=== PATIENT | female | born 1955 | race African-American/Black ===

== ENCOUNTER 2017-07-30 21:39 | Inpatient (IN) | payer OTHER ==
[2017-07-30 21:50] VITALS: BMI 36.6
--- NOTE | 2017-07-30 23:48 | PDOC ---
History of Present Illness <Miriam Reynoso - Last Filed: 07/31/17 05:22> - History of Present Illness Initial Comments: Ms. Najera is a 62yo F with a PMHx of HTN, DM2 who presents with R sided abdominal pain. Pain is characterized as a pressure, started suddenly today at 5pm. Pain is worse w/ movement. She has had 3 episode of NBNB emesis since the pain started. Also associated fevers, chills. She doesn't remember if she ate anything odd. Endorses no chest pain, GERD. No dysuria, hematuria. But endorses increased urinary frequency and dry mouth since the episode started. No diarrhea , no constipation, no blood in stool. PMD - Dr. Daly SocHx - Denies smoking, alcohol, drugs SgHx - Hysterectomy Allergies - Penicillin <Noel Everett - Last Filed: 07/31/17 05:57> - General Chief Complaint: Pain Stated Complaint: right sided abdominal pain Time Seen by Provider: 07/30/17 22:32 Past History <Miriam Reynoso - Last Filed: 07/31/17 05:22> - Past Medical History Anemia: No Asthma: No Cancer: No Cardiac Disorders: No CVA: No COPD: No CHF: No Dementia: No Diabetes: No GI Disorders: Yes (DIVERTICULOSIS) Disorders: No HTN: Yes Hypercholesterolemia: No Liver Disease: No Seizures: No Thyroid Disease: No - Surgical History Abdominal Surgery: No Appendectomy: No Cardiac Surgery: No Cholecystectomy: No Lung Surgery: No Neurologic Surgery: No Orthopedic Surgery: No - Suicide/Smoking/Psychosocial Hx Smoking History: Never smoked Have you smoked in the past 12 months: No If you are a former smoker, when did you quit?: 35 YEARS AGO Information on smoking cessation initiated: No Hx Alcohol Use: No Drug/Substance Use Hx: No Substance Use Type: None Hx Substance Use Treatment: No <Noel Everett - Last Filed: 07/31/17 05:57> - Past Medical History Allergies/Adverse Reactions: Allergies Allergy/AdvReac Type Severity Reaction Status Date / Time Penicillins Allergy Verified 07/30/17 21:50 Home Medications: Ambulatory Orders Aspirin 81 mg PO DAILY 11/08/13 Triamterene/Hydrochlorothiazid [Maxzide 37.5 mg-25 mg Tablet] 1 each PO HS 11/08 Amlodipine Besylate 5 mg PO DAILY 07/30/17 *Physical Exam - Vital Signs Last Vital Signs Temp Pulse Resp BP Pulse Ox 100.6 F H 97 H 16 162/65 100 07/30/17 21:48 07/30/17 21:48 07/30/17 21:48 07/30/17 21:48 07/30/17 21:48 <Miriam Reynoso - Last Filed: 07/31/17 05:22> - Vital Signs Last Vital Signs Temp Pulse Resp BP Pulse Ox 100.6 F H 97 H 16 162/65 100 07/30/17 21:48 07/30/17 21:48 07/30/17 21:48 07/30/17 21:48 07/30/17 21:48 - Physical Exam Comments: GEN: AAOx3, NAD, Lying comfortably not in distress HEENT: PERRLA, EOMi CV: S1, S2, RRR LUNG: CTABL ABD: Soft, TTP in RLQ and R middle MSK: No edema, no erythema NEURO: CN 2-12 grossly intact <Noel Everett - Last Filed: 07/31/17 05:57> ED Treatment Course - LABORATORY CBC & Chemistry Diagram: 07/31/17 00:29 07/31/17 00:29 - ADDITIONAL ORDERS Additional order review: Laboratory Results 07/31/17 07/31/17 07/31/17 00:29 00:29 00:29 Sodium 135 L Potassium 3.7 Chloride 98 Carbon Dioxide 28 Anion Gap 9 BUN 17 Creatinine 0.9 Creat Clearance w eGFR > 60 Random Glucose 185 H Calcium 9.0 Total Bilirubin 1.0 AST 14 L ALT 19 Alkaline Phosphatase 106 Creatine Kinase 155 Creatine Kinase Index 0.6 CK-MB (CK-2) < 1.000 Troponin I < 0.02 Total Protein 7.5 Albumin 3.9 Lipase Cancelled 151 Urine Color Straw Urine Appearance Clear Urine pH 5.0 Ur Specific [place]y 1.003 Urine Protein Negative Urine Glucose (UA) Negative Urine Ketones Negative Urine Blood Negative Urine Nitrite Negative Urine Bilirubin Negative Urine Urobilinogen Negative Ur Leukocyte Esterase Negative 07/31/17 02:58 Influenza Types A,B Antigen (AARON) - Final Nasopharyngeal Swab - Final 07/31/17 00:29 RBC 4.32 MCV 85.5 MCHC 33.1 RDW 13.5 MPV 9.0 Neutrophils % 86.9 H Lymphocytes % 6.4 L Monocytes % 6.5 Eosinophils % 0.1 Basophils % 0.1 - Medications Given in the ED: ED Medications Discontinued Medications Generic Name Dose Route Start Last Admin Trade Name Wendi PRN Reason Stop Dose Admin Amlodipine Besylate 5 mg 07/31/17 01:06 07/31/17 01:12 Norvasc - PO 07/31/17 01:07 5 mg NOW ONE Administration Aspirin 81 mg 07/31/17 01:06 07/31/17 01:12 Asa - PO 07/31/17 01:07 81 mg NOW ONE Administration <Miriam Reynoso - Last Filed: 07/31/17 05:22> - LABORATORY CBC & Chemistry Diagram: 07/31/17 00:29 07/31/17 00:29 <Noel Everett - Last Filed: 07/31/17 05:57> Medical Decision Making - Medical Decision Making 07/31/17 05:15 THIS IS A PRELIMINARY REPORT FROM [facility] DATE OF SERVICE: 2017-07-31 04:18:03 IMAGES: [id number] EXAM: CT ABDOMEN AND PELVIS without contrast HISTORY: Vomiting COMPARISON: None. FINDINGS: Lung bases are clear. The visualized cardiac chambers are normal size and configuration. Normal unenhanced liver, gallbladder, pancreas, spleen, adrenal glands and kidneys. A tiny hiatal hernia is noted. The abdominal small and large bowel are normal. There is no aortic aneurysm. There is no significant retroperitoneal lymphadenopathy. There is mild inflammation of the terminal ileum. Cecum and right colon are normal. There is sigmoid diverticulosis without evidence of diverticulitis. No bowel obstruction , abscess or free air. l. The appendix is normal. Status post hysterectomy. Urinary bladder is unremarkable. There is no pelvic free fluid. No discrete pelvic lymphadenopathy is identified. IMPRESSION: Mild terminal ileitis could be due to infection or Crohn's disease with bowel ischemia. THIS DOCUMENT HAS BEEN ELECTRONICALLY SIGNED <Miriam Reynoso - Last Filed: 07/31/17 05:22> - Medical Decision Making 62yo F with PMHx of HTN, DM2 who presents w/ R sided abdominal pain assoc w/ NBMB emesis x3 DDx includes: Viral gastroenteritis, muscle strain, DKA, appendicitis, cholelithiasis -- CBC, CMP -- UA, UCx -- CT Abd/Pelvis w/o contrast 07/31/17 05:[address] Abd shows mild terminal ileitis, could be infectious vs Crohns disease. Call placed to Dr. Daly, patient accepted for admission med/surg Started on IV Flagyl/Levaquin, IVF, GI Consult Case d/w Dr Reynoso <Noel Everett - Last Filed: 07/31/17 05:57> *DC/Admit/Observation/Transfer - Discharge Dispostion Admit: Yes <Miriam Reynoso - Last Filed: 07/31/17 05:22> - Discharge Dispostion Admit: Yes <Noel Everett - Last Filed: 07/31/17 05:57> Diagnosis at time of Disposition: Terminal ileitis Qualifiers: Digestive disease complication type: without complication Qualified Code(s): K50.00 - Crohn's disease of small intestine without complications - Discharge Dispostion Condition at time of disposition: Guarded - Referrals Referrals: Catrachito Daly MD [Primary Care Provider] - - Patient Instructions - Post Discharge Activity
[2017-07-31 00:34] LABS: BASO % 0.1 % (0-2.0); EOS % 0.1 % (0-4.5); HEMATOCRIT 36.9 % (32.4-45.2); HEMOGLOBIN 12.2 GM/dL (10.7-15.3); LYMPH % 6.4 % (8-40); MCH 28.3 pg (25.7-33.7); MCHC 33.1 g/dl (32.0-36.0); MEAN CELL VOLUME 85.5 fl (80-96); MONO % 6.5 % (3.8-10.2); NEUT % 86.9 % (42.8-82.8); PLATELET COUNT 237 K/MM3 (134-434); RBC 4.32 M/mm3 (3.60-5.2); RDW 13.5 % (11.6-15.6); WHITE BLOOD COUNT 17.1 K/mm3 (4.0-10.0)
[2017-07-31 00:35] LABS: URINE APPEARANCE CLEAR; URINE BILIRUBIN NEGATIVE (NEGATIVE); URINE BLOOD NEGATIVE (NEGATIVE); URINE COLOR STRAW; URINE GLUCOSE (UA) NEGATIVE (NEGATIVE); URINE KETONE NEGATIVE (NEGATIVE); URINE LEUK ESTERASE NEGATIVE (NEGATIVE); URINE NITRITE NEGATIVE (NEGATIVE); URINE PROTEIN NEGATIVE (NEGATIVE); URINE UROBILINOGEN NEGATIVE mg/dL (0.2-1.0)
[2017-07-31 00:56] LABS: ALBUMIN 3.9 g/dl (3.4-5.0); ANION GAP 9 (8-16); BLOOD UREA NITROGEN 17 mg/dL (7-18); CHLORIDE 98 mmol/L (98-107); CO2 28 mmol/L (21-32); CREATININE 0.9 mg/dL (0.55-1.02); GLUCOSE,RANDOM 185 mg/dL (74-106); POTASSIUM 3.7 mmol/L (3.5-5.1); SGOT/AST 14 U/L (15-37); SGPT/ALT 19 U/L (12-78); SODIUM 135 mmol/L (136-145); TOT PROT 7.5 g/dl (6.4-8.2)
[2017-07-31 00:58] LABS: ALK PHOS 106 U/L (45-117)
[2017-07-31] MEDS ORDERED: ASPIRIN 81 MG CHEWABLE TABLETS PO ONE (01:06)
[2017-07-31] MEDS ORDERED: amLODIPine BESYLATE 5 MG TABLET (FP) PO ONE (01:06)
[2017-07-31] MEDS ORDERED: ASPIRIN 81 MG CHEWABLE TABLETS ONE (01:08)
[2017-07-31] MEDS ORDERED: amLODIPine BESYLATE 5 MG TABLET (FP) ONE (01:09)
[2017-07-31 01:52] LABS: LIPASE 151 U/L (73-393)
[2017-07-31] MEDS ORDERED: SODIUM CHLORIDE 0.9% 1000 ML INFUS.BAG IV ONE (05:16)
[2017-07-31] MEDS ORDERED: LEVOFLOXACIN 500 MG IVPB 500 MG/100 ML BAG IVPB ONE ×2 (05:17→06:01)
[2017-07-31] MEDS ORDERED: METRONIDAZOLE 500 MG PREMIXED 500 MG/100 ML MG IVPB ONE ×2 (05:17→06:01)
[2017-07-31] MEDS ORDERED: ACETAMINOPHEN 325 MG TABLET (FP) PO PRN (05:57)
[2017-07-31 06:23] LABS: HEMATOCRIT 33.6 % (32.4-45.2); HEMOGLOBIN 11.1 GM/dL (10.7-15.3); MCH 28.5 pg (25.7-33.7); MCHC 33.1 g/dl (32.0-36.0); MEAN PLT VOLUME 8.8 fl (7.5-11.1); PLATELET COUNT 219 K/MM3 (134-434); RBC 3.91 M/mm3 (3.60-5.2); RDW 13.4 % (11.6-15.6); WHITE BLOOD COUNT 16.7 K/mm3 (4.0-10.0)
[2017-07-31 06:45] LABS: ANION GAP 7 (8-16); BLOOD UREA NITROGEN 13 mg/dL (7-18); CALCIUM 7.9 mg/dL (8.5-10.1); CHLORIDE 102 mmol/L (98-107); CO2 29 mmol/L (21-32); CREATININE 0.7 mg/dL (0.55-1.02); GLUCOSE,RANDOM 138 mg/dL (74-106); POTASSIUM 3.9 mmol/L (3.5-5.1); SODIUM 138 mmol/L (136-145)
--- NOTE | 2017-07-31 06:53 | PDOC ---
Attending Attestation - Resident Resident Name: Noel Everett - ED Attending Attestation I have performed the following: I have examined & evaluated the patient, The case was reviewed & discussed with the resident, I agree w/resident's findings & plan - HPI HPI: 07/31/17 06:48 Pt comes with abd pain. Discomfort and low grade temp. Pt has nausea and dereased PO intake. - Physicial Exam PE: 07/31/17 06:48 Agree with resident exam. - Medical Decision Making 07/31/17 06:51 THIS IS A PRELIMINARY REPORT FROM [facility] DATE OF SERVICE: 2017-07-31 04:18:03 IMAGES: [id number] EXAM: CT ABDOMEN AND PELVIS without contrast HISTORY: Vomiting COMPARISON: None. FINDINGS: Lung bases are clear. The visualized cardiac chambers are normal size and configuration. Normal unenhanced liver, gallbladder, pancreas, spleen, adrenal glands and kidneys. A tiny hiatal hernia is noted. The abdominal small and large bowel are normal. There is no aortic aneurysm. There is no significant retroperitoneal lymphadenopathy. There is mild inflammation of the terminal ileum. Cecum and right colon are normal. There is sigmoid diverticulosis without evidence of diverticulitis. No bowel obstruction , abscess or free air. l. The appendix is normal. Status post hysterectomy. Urinary bladder is unremarkable. There is no pelvic free fluid. No discrete pelvic lymphadenopathy is identified. IMPRESSION: Mild terminal ileitis could be due to infection or Crohn's disease with bowel ischemia. THIS DOCUMENT HAS BEEN ELECTRONICALLY SIGNED Pt will be admitted for IV abx and IV hydration and GI eval. Pt's PMD is aware of the admission
--- NOTE | 2017-07-31 12:03 | CON.GI ---
Consult Consult Specialty:: Gastroenterology Referred by:: Dr Daly Reason for Consultation:: Abdominal pain - History of Present Illness Chief Complaint: RLQ pain after eating seafood and pizza yesterday History of Present Illness: 62F developed RLQ crampy pain after eating shrimp, other seafood and pizza at a Religious gathering yesterday. She denies diarrhea or vomiting. She had a temp of 100.6 in the ER. She was feeling perfectly well yesterday morning. She was followed by Dr Albert in the past ( see attached records) He perforemd two colonoscopies that revealed diverticulosis that led to the removal of a splenic flexure polyp in 2006 and an ascending colon polyp ( normal tissue on path) in 2013. She did have diverticulositis in the past. - History Source History Provided By: Patient Limitations to Obtaining History: No Limitations - Past Medical History Cardio/Vascular: Yes: HTN Gastrointestinal: Yes: Diverticulitis, Diverticulosis, Other (colon polyps) - Past Surgical History Past Surgical History: Yes: Colonoscopy, (x 3), Hysterectomy (MARCO, ovaries intact for fibroids), Tonsillectomy - Alcohol/Substance Use Hx Alcohol Use: No - Smoking History Smoking history: Former smoker Have you smoked in the past 12 months: No If you are a former smoker, when did you quit?: quit 1978 - Social History Usual Living Arrangement: Alone () ADL: Independent Occupation: counsellor for the disabled Place of : [facility] History of Recent Travel: No Home Medications - Allergies Allergies/Adverse Reactions: Allergies Allergy/AdvReac Type Severity Reaction Status Date / Time Penicillins Allergy Verified 07/30/17 21:50 - Home Medications Home Medications: Ambulatory Orders Aspirin 81 mg PO DAILY 11/08/13 Triamterene/Hydrochlorothiazid [Maxzide 37.5 mg-25 mg Tablet] 1 each PO HS 11/08 Amlodipine Besylate 5 mg PO DAILY 07/30/17 Family Disease History - Family Disease History Family Disease History: Heart Disease: Mother ( MA in her 80s), Other: Father ( of MA after falling OOB in hospital), Sister (polio) Review of Systems - Review of Systems Constitutional: reports: Chills Eyes: reports: No Symptoms HENT: reports: No Symptoms Neck: reports: No Symptoms Cardiovascular: reports: No Symptoms Respiratory: reports: No Symptoms Gastrointestinal: reports: Abdominal Pain Genitourinary: reports: No Symptoms Musculoskeletal: reports: No Symptoms Neurological: reports: No Symptoms Endocrine: reports: No Symptoms Physical Exam-GI Vital Signs: Vital Signs Temperature 98.9 F 07/31/17 09:05 Pulse Rate 66 07/31/17 09:05 Respiratory Rate 16 07/31/17 09:05 Blood Pressure 137/66 07/31/17 09:05 O2 Sat by Pulse Oximetry (%) 100 07/31/17 09:05 CBC,CMP WBC 16.7 K/mm3 (4.0-10.0) H 07/31/17 06:14 RBC 3.91 M/mm3 (3.60-5.2) 07/31/17 06:14 Hgb 11.1 GM/dL (10.7-15.3) 07/31/17 06:14 Hct 33.6 % (32.4-45.2) 07/31/17 06:14 MCV 86.0 fl (80-96) 07/31/17 06:14 MCH 28.5 pg (25.7-33.7) 07/31/17 06:14 MCHC 33.1 g/dl (32.0-36.0) 07/31/17 06:14 RDW 13.4 % (11.6-15.6) 07/31/17 06:14 Plt Count 219 K/MM3 (134-434) 07/31/17 06:14 MPV 8.8 fl (7.5-11.1) 07/31/17 06:14 Neutrophils % 86.9 % (42.8-82.8) H 07/31/17 00:29 Lymphocytes % 6.4 % (8-40) L 07/31/17 00:29 Monocytes % 6.5 % (3.8-10.2) 07/31/17 00:29 Eosinophils % 0.1 % (0-4.5) 07/31/17 00:29 Basophils % 0.1 % (0-2.0) 07/31/17 00:29 Sodium 138 mmol/L (136-145) 07/31/17 06:14 Potassium 3.9 mmol/L (3.5-5.1) 07/31/17 06:14 Chloride 102 mmol/L (98-107) 07/31/17 06:14 Carbon Dioxide 29 mmol/L (21-32) 07/31/17 06:14 Anion Gap 7 (8-16) L 07/31/17 06:14 BUN 13 mg/dL (7-18) 07/31/17 06:14 Creatinine 0.7 mg/dL (0.55-1.02) 07/31/17 06:14 Creat Clearance w eGFR > 60 (>60) 07/31/17 00:29 POC Glucometer 150.65519 UNITS (80-120) 07/31/17 06:42 Random Glucose 138 mg/dL (74-106) H 07/31/17 06:14 Lactic Acid 1.7 mmol/L (0.0-2.0) 07/31/17 06:14 Calcium 7.9 mg/dL (8.5-10.1) L 07/31/17 06:14 Total Bilirubin 1.0 mg/dL (0.2-1.0) 07/31/17 00:29 AST 14 U/L (15-37) L 07/31/17 00:29 ALT 19 U/L (12-78) 07/31/17 00:29 Alkaline Phosphatase 106 U/L (45-117) 07/31/17 00:29 Creatine Kinase 155 IU/L (26-192) 07/31/17 00:29 Creatine Kinase Index 0.6 % (0.0-5.0) 07/31/17 00:29 CK-MB (CK-2) < 1.000 ng/mL (0.5-3.6) 07/31/17 00:29 Troponin I < 0.02 ng/ml (0.00-0.05) 07/31/17 00:29 Total Protein 7.5 g/dl (6.4-8.2) 07/31/17 00:29 Albumin 3.9 g/dl (3.4-5.0) 07/31/17 00:29 Lipase 151 U/L (73-393) 07/31/17 00:29 Current Medications Generic Name Dose Route Start Last Admin Trade Name Freq PRN Reason Stop Dose Admin Acetaminophen 650 mg 07/31/17 05:57 Tylenol - PO Q6H PRN PAIN Amlodipine Besylate 5 mg 08/01/17 10:00 Norvasc - PO DAILY [facility] Heparin Sodium (Porcine) 5,000 unit 07/31/17 10:00 07/31/17 12:06 Heparin - SQ 5,000 unit BID [facility] Administration Levofloxacin 500 mg in 100 mls @ 100 mls/hr 07/31/17 10:00 07/31/17 12:06 Levaquin 500 Mg Premixed Ivpb - IVPB 100 mls/hr DAILY [facility] Administration Metronidazole 500 mg in 100 mls @ 100 mls/hr 07/31/17 10:00 07/31/17 12:06 Flagyl 500mg Premixed Ivpb - IVPB 100 mls/hr Q8H-IV [facility] Administration Constitutional: Yes: No Distress Eyes: Yes: Conjunctiva Clear HENT: Yes: Normocephalic Neck: Yes: Supple Cardiovascular: Yes: Regular Rate and Rhythm Respiratory: Yes: CTA Bilaterally Gastrointestinal Inspection: Yes: Scars (defromed vertical and Pfannensteil suprapubic incisions), Other (obese) ...Auscultate: Yes: Normoactive Bowel Sounds ...Palpate: Yes: Tenderness (right paraumbilical area, no masses) ...Percussion: Yes: Tympanitic ...Rectal Exam: Yes: Guaiac Negative, Other (no masses) Edema: No Peripheral Pulses WNL: Yes Psychiatric: Yes: Alert Labs: CBC, BMP 07/31/17 06:14 07/31/17 06:14 Laboratory Tests 07/31/17 07/31/17 07/31/17 00:29 00:29 06:14 WBC 17.1 H 16.7 H Total Bilirubin 1.0 AST 14 L ALT 19 Alkaline Phosphatase 106 Lipase 151 Imaging - Results Cat Scan: Report Reviewed (Simeon Ellsworth Name: [facility] Phys: Noel Everett RESIDENT : 1955 Age: 62 Sex: F [facility] Acct: [id number] Loc: [id number] [facility] Exam Date: 07/31/17 Status: [place] [address] Unit Number: [id number] EXAM#: TYPE/EXAM: RESULT: [id number] CT/ABDOMEN PELVIS CT W/O CONTR HISTORY PROVIDED: Right sided abdominal pain TECHNIQUE: Sequential axial images were obtained from the domes of the diaphragm through the symphysis pubis following the administration of oral contrast material. The lung bases are clear. The liver, spleen, pancreas, adrenal glands and kidneys demonstrate no significant abnormalities. There is no evidence of intra-abdominal or retroperitoneal lymphadenopathy or fluid collections. There is no evidence of pneumoperitoneum, bowel obstruction or intra-abdominal abscess. There is no CT evidence of acute appendicitis or diverticulitis. There is slight thickening and irregularity of the terminal ileum with a mild degree of inflammatory stranding in the adjacent mesenteric fat. This suggest terminal ileitis. Clinical correlation is advised, as Crohn's disease cannot be excluded. Examination of the pelvis demonstrates no evidence of pelvic masses, fluid collections or lymphadenopathy. There is diverticulosis of the sigmoid colon. The uterus is been removed. There are degenerative arthritic changes of the lumbosacral spine with no evidence of acute bony pathology. IMPRESSION: Suspected terminal ileitis, otherwise normal CT scan of the abdomen and pelvis. Please see above discussion. Reported By: Jeremiah Mcneill MD 07/31/17 1003 Technologist: Penny Glover Transcribed Date /Time: 07/31/17 1003 Digital Photo Printer: Jeremiah Mcneill Printed Date/Time: By: Signed by: Jeremiah Mcneill Signed on: 31-Jul-2017 10:04) Problem List - Problems (1) Mesenteric adenitis Code(s): I88.0 - NONSPECIFIC MESENTERIC LYMPHADENITIS (2) Colon polyps Code(s): K63.5 - POLYP OF COLON (3) Diverticulosis of colon Code(s): K57.30 - DVRTCLOS OF LG INT W/O PERFORATION OR ABSCESS W/O BLEEDING (4) Terminal ileitis Assessment/Plan: I believe that the pain and imaging finding of terminal ileitis reflect mesenteric adenitis which is usually a self limited infection. Meckles diverticulum usually is associated with bleeding. Ischemic injury would usually involve the cecum as well. If the pain fails to resolve than a colonoscopy will be indicated to try to exclude Crohn's Disease. No obvious appendicitis but will observe. Will advance diet as tolerated. Discussed case with Dr Daly. Code(s): K50.00 - CROHN'S DISEASE OF SMALL INTESTINE WITHOUT COMPLICATIONS Qualifiers: Digestive disease complication type: without complication Qualified Code(s) : K50.00 - Crohn's disease of small intestine without complications
[2017-07-31] MEDS: HEPARIN NA (PORCINE) 5,000 UNITS/ML 1ML VIAL SQ SCH ×2 (12:06→21:20)
[2017-07-31] MEDS: LEVOFLOXACIN 500 MG IVPB 500 MG/100 ML BAG IVPB SCH (12:06)
[2017-07-31] MEDS: METRONIDAZOLE 500 MG PREMIXED 500 MG/100 ML MG IVPB SCH ×2 (12:06→17:59)
--- NOTE | 2017-07-31 12:23 | PN ---
Progress Note, Physician Chief Complaint: Pt resting comfortably, Rt lower quadrant pain improved,no nausea,vomiting diarrhoea afebrile GI f/u appreciated CT abdomen report appreciated Pt is on clear liquid - Current Medication List Current Medications: Active Medications Acetaminophen (Tylenol -) 650 mg PO Q6H PRN PRN Reason: PAIN Amlodipine Besylate (Norvasc -) 5 mg PO DAILY [facility] Heparin Sodium (Porcine) (Heparin -) 5,000 unit SQ BID [facility] Last Admin: 07/31/17 12:06 Dose: 5,000 unit Levofloxacin (Levaquin 500 Mg Premixed Ivpb -) 500 mg in 100 mls @ 100 mls/hr IVPB DAILY [facility] Last Admin: 07/31/17 12:06 Dose: 100 mls/hr Metronidazole (Flagyl 500mg Premixed Ivpb -) 500 mg in 100 mls @ 100 mls/hr IVPB Q8H-IV [facility] Last Admin: 07/31/17 12:06 Dose: 100 mls/hr - Objective Vital Signs: Vital Signs Temperature 98.2 F 07/31/17 12:00 Pulse Rate 66 07/31/17 12:00 Respiratory Rate 18 07/31/17 12:00 Blood Pressure 129/67 07/31/17 12:00 O2 Sat by Pulse Oximetry (%) 100 07/31/17 09:05 Constitutional: Yes: No Distress Eyes: Yes: Conjunctiva Clear HENT: Yes: Atraumatic Neck: Yes: Supple Cardiovascular: Yes: Regular Rate and Rhythm Respiratory: Yes: Regular, CTA Bilaterally Gastrointestinal: Yes: Normal Bowel Sounds, Soft, Tenderness (Rt lower quadrant) , Other (RT lower quadrant) Genitourinary: Yes: WNL Musculoskeletal: Yes: WNL Extremities: Yes: WNL Edema: No Peripheral Pulses WNL: Yes Neurological: Yes: WNL, Alert ...Motor Strength: WNL Psychiatric: Yes: WNL Labs: CBC, BMP 07/31/17 06:14 07/31/17 06:14 - ....Imaging Cat Scan: Report Reviewed Assessment/Plan Rt lower quadrant pain ?mesentric lymphadenitis Terminal ileitis HTN Diverticulosis PLAN Continue antibiotics Advance diet as tolerated Will f/u GI rec monitor cbc Continue BP meds
--- NOTE | 2017-07-31 14:25 | HP ---
DATE OF ADMISSION: 07/31/2017 The patient is a 62-year-old female with a past medical history of hypertension and diet-controlled diabetes who came to the emergency room with complaints of right lower quadrant pain. As per the patient, she ate some shrimp and broccoli and seafood pizza at a yazdanism gathering yesterday. The patient denies any diarrhea but nausea present. The patient felt feverish and since the pain was more, she came to the emergency room for further evaluation. She was feeling perfectly before she developed the symptoms. She was seen by GI in the past and had a colonoscopy and told that she had diverticulosis and had a polyp removed. There is no blood in the stool. Mild nausea present and patient vomited once. PAST MEDICAL HISTORY: Significant for hypertension, diet-controlled diabetes, and diverticulosis. SURGICAL HISTORY: The patient had a hysterectomy, , and tonsillectomy. ALLERGIES: PENICILLIN. PERSONAL HISTORY: Former smoker. She quit smoking in 1978. Patient living alone. HOME MEDICATION: The patient is on aspirin 81 mg daily, triamterene/hydrochlorothiazide 37.5/25 mg daily, amlodipine besylate 5 mg p.o. daily. REVIEW OF SYSTEMS: Constitutional: Complains of some chills. HEENT: Eyes: No symptoms. Head: No symptoms. Neck: No symptoms. Cardiovascular: No symptoms. Respiratory: No symptoms. Gastrointestinal: Mild right lower quadrant pain, mainly nausea. Genitourinary: No urinary symptoms. Musculoskeletal: No symptoms. Neurological: No symptoms. Endocrine: No symptoms. PHYSICAL EXAMINATION: Vital Signs: In the emergency room, temperature was 100.6, pulse rate 97, respirations 16, blood pressure 162/60 with saturation 100%. Head and Neck: Normal. Neck supple, no JVD. Chest: Clear. Cardiovascular: First and second sounds normal. Abdomen: Scar present. Slight tenderness in the right lower quadrant. No guarding, no rigidity. Bowel sounds present. Stool guaiac negative. Extremities: No peripheral edema. Central Nervous System: Alert, oriented x3. No apparent motor or sensory deficit. Reflexes normal. LABORATORIES: Show a CBC in the ER: WBC 17.1, hemoglobin 12.2, hematocrit of 36.9, platelet 237. 6.9. Comprehensive panel: Sodium 135, potassium 3.7, chloride 98, bicarbonate 28, BUN 17, creatinine 0.9, blood sugar 185. Cardiac enzymes negative. Urine negative. Urine culture pending. Influenza screening negative. Liver function tests negative. Lactic acid 1.7. CAT scan of the abdomen and pelvis shows suspected abdominal ileitis; otherwise, normal CAT scan of the abdomen and pelvis. There is no evidence of fluid in the abdomen. There is some terminal ileum with a mild degree of intermittent stranding in the adjacent mesenteric fat. Patient admitted to the floor with admitting diagnoses of: 1. Right lower quadrant pain with terminal ileitis, rule out mesenteric adenitis and diverticulosis of colon. 2. Hypertension. PLAN: Levaquin 500 mg IV daily, Flagyl 500 mg IV 3 times a day. Clear liquid; advance diet as tolerated. Continue the home medications. GI consult. Patient stable on the floor. JENNIFER NAIDU M.D. [id number]
[2017-08-01] MEDS: METRONIDAZOLE 500 MG PREMIXED 500 MG/100 ML MG IVPB SCH ×3 (01:55→17:12)
[2017-08-01 08:06] LABS: BASO % 0.2 % (0-2.0); EOS % 1.3 % (0-4.5); HEMATOCRIT 32.2 % (32.4-45.2); HEMOGLOBIN 10.6 GM/dL (10.7-15.3); LYMPH % 12.6 % (8-40); MCH 28.1 pg (25.7-33.7); MCHC 32.8 g/dl (32.0-36.0); MEAN CELL VOLUME 85.9 fl (80-96); MEAN PLT VOLUME 8.9 fl (7.5-11.1); MONO % 7.6 % (3.8-10.2); NEUT % 78.3 % (42.8-82.8); PLATELET COUNT 198 K/MM3 (134-434); RBC 3.75 M/mm3 (3.60-5.2); RDW 13.8 % (11.6-15.6); WHITE BLOOD COUNT 9.8 K/mm3 (4.0-10.0)
[2017-08-01 08:31] LABS: ALBUMIN 3.1 g/dl (3.4-5.0); ANION GAP 9 (8-16); BLOOD UREA NITROGEN 7 mg/dL (7-18); CHLORIDE 104 mmol/L (98-107); CO2 27 mmol/L (21-32); POTASSIUM 3.9 mmol/L (3.5-5.1); SODIUM 140 mmol/L (136-145)
[2017-08-01 08:36] LABS: ALK PHOS 100 U/L (45-117); BILIRUBIN,TOTAL 1.1 mg/dL (0.2-1.0); CALCIUM 8.8 mg/dL (8.5-10.1); CREATININE 0.7 mg/dL (0.55-1.02); GLUCOSE,RANDOM 119 mg/dL (74-106); SGOT/AST 8 U/L (15-37); SGPT/ALT 15 U/L (12-78); TOT PROT 6.5 g/dl (6.4-8.2)
[2017-08-01] MEDS ORDERED: PT OWN MED DRAWER 7, Y5N ONE (09:02)
[2017-08-01] MEDS: HEPARIN NA (PORCINE) 5,000 UNITS/ML 1ML VIAL SQ SCH ×2 (09:03→22:11)
[2017-08-01] MEDS: amLODIPine BESYLATE 5 MG TABLET (FP) PO SCH (09:04)
[2017-08-01] MEDS: LEVOFLOXACIN 500 MG IVPB 500 MG/100 ML BAG IVPB SCH (09:04)
[2017-08-01] MEDS: TRIAMTERENE AND HCTZ - 37.5 MG/25 MG CAPSULE PO SCH (09:04)
--- NOTE | 2017-08-01 09:45 | PN ---
Progress Note, Physician Chief Complaint: Pt resting comfortably,ambulating HAD NL BOWEL MOVEMENT Rt lower quadrant pain improved,no nausea,vomiting afebrile GI f/u appreciated CT abdomen report appreciated Pt is on clear liquid ADVANCE DIET TOLERATED - Current Medication List Current Medications: Active Medications Acetaminophen (Tylenol -) 650 mg PO Q6H PRN PRN Reason: PAIN Last Admin: 07/31/17 14:09 Dose: 650 mg Amlodipine Besylate (Norvasc -) 5 mg PO DAILY [facility] Last Admin: 08/01/17 09:04 Dose: 5 mg Heparin Sodium (Porcine) (Heparin -) 5,000 unit SQ BID [facility] Last Admin: 08/01/17 09:03 Dose: 5,000 unit Levofloxacin (Levaquin 500 Mg Premixed Ivpb -) 500 mg in 100 mls @ 100 mls/hr IVPB DAILY [facility] Last Admin: 08/01/17 09:04 Dose: 100 mls/hr Metronidazole (Flagyl 500mg Premixed Ivpb -) 500 mg in 100 mls @ 100 mls/hr IVPB Q8H-IV [facility] Last Admin: 08/01/17 09:04 Dose: 100 mls/hr Triamterene/HCTZ (Dyazide 25/37.5mg) 1 cap PO DAILY [facility] Last Admin: 08/01/17 09:04 Dose: 1 cap - Objective Vital Signs: Vital Signs Temperature 99.7 F H 08/01/17 05:56 Pulse Rate 87 08/01/17 05:56 Respiratory Rate 20 08/01/17 05:56 Blood Pressure 121/59 08/01/17 05:56 O2 Sat by Pulse Oximetry (%) 100 07/31/17 21:00 Constitutional: Yes: No Distress Eyes: Yes: Conjunctiva Clear HENT: Yes: Atraumatic Neck: Yes: Supple, Trachea Midline Cardiovascular: Yes: Regular Rate and Rhythm Respiratory: Yes: Regular, CTA Bilaterally Gastrointestinal: Yes: Normal Bowel Sounds, Soft Genitourinary: Yes: WNL Musculoskeletal: Yes: WNL Extremities: Yes: WNL Edema: No Peripheral Pulses WNL: Yes Neurological: Yes: WNL, Alert, Oriented ...Motor Strength: WNL Psychiatric: Yes: WNL Labs: CBC, BMP 08/01/17 06:35 08/01/17 06:35 Assessment/Plan Rt lower quadrant pain ?mesentric lymphadenitis IMPROVED Terminal ileitis HTN Diverticulosis PLAN Continue antibiotics Advance diet as tolerated Will f/u GI rec monitor cbc Continue BP meds
--- NOTE | 2017-08-01 13:06 | EKG ---
Test Reason : Blood Pressure : / mmHG Vent. Rate : 067 BPM Atrial Rate : 067 BPM P-R Int : 136 ms QRS Dur : 098 ms QT Int : 386 ms P-R-T Axes : 049 013 032 degrees QTc Int : 407 ms NORMAL SINUS RHYTHM NONSPECIFIC T WAVE ABNORMALITY ABNORMAL ECG WHEN COMPARED WITH ECG OF 21-NOV-2010 05:39, NO SIGNIFICANT CHANGE WAS FOUND Confirmed by NHI BELTRE MD ([id number]) on 08/01/2017 1:06:22 PM Referred By: Confirmed By:NHI BELTRE MD
--- NOTE | 2017-08-01 15:22 | PN ---
Physical Exam: SUBJECTIVE: Patient seen and examined at bedside. No overnight events. No new complaints. She had loose BM last night. Continues to have some abdominal pain which is improving. Denies CP, ALY, palptitations, N/V. OBJECTIVE: Vital Signs Period Temp Pulse Resp BP Sys/Petit Pulse Ox Last 24 Hr 97.7 F-99.7 F 62-87 18-20 107-136/54-67 97-100 GENERAL: AAOx3 NAD HEAD: NC/AT EYES: sclera anicteric, ENT:moist mucous membranes. NECK: supple. LUNGS: CTAB, No wheezing or rales. HEART:RRR, No M/G/R ABDOMEN: Obese, Soft, bilateral lower quadrant tenderness, nondistended, normoactive bowel sounds, voluntary guarding, no rebound, no hepatosplenomegaly, no masses. EXTREMITIES: 2+ pulses, warm, well-perfused, no edema. NEUROLOGICAL: Normal speech Laboratory Results - last 24 hr 08/01/17 08/01/17 08/01/17 06:07 06:35 06:35 WBC 9.8 D RBC 3.75 Hgb 10.6 L Hct 32.2 L MCV 85.9 MCH 28.1 MCHC 32.8 RDW 13.8 Plt Count 198 MPV 8.9 Neutrophils % 78.3 Lymphocytes % 12.6 D Monocytes % 7.6 Eosinophils % 1.3 D Basophils % 0.2 Sodium 140 Potassium 3.9 Chloride 104 Carbon Dioxide 27 Anion Gap 9 BUN 7 Creatinine 0.7 Creat Clearance w eGFR > 60 POC Glucometer 147 Random Glucose 119 H Calcium 8.8 Total Bilirubin 1.1 H AST 8 L ALT 15 Alkaline Phosphatase 100 C-Reactive Protein 15.5 H Total Protein 6.5 Albumin 3.1 L 08/01/17 08/01/17 06:35 11:05 WBC RBC Hgb Hct MCV MCH MCHC RDW Plt Count MPV Neutrophils % Lymphocytes % Monocytes % Eosinophils % Basophils % Sodium Potassium Chloride Carbon Dioxide Anion Gap BUN Creatinine Creat Clearance w eGFR POC Glucometer 121 Random Glucose Calcium Total Bilirubin AST ALT Alkaline Phosphatase C-Reactive Protein Cancelled Total Protein Albumin Active Medications Generic Name Dose Route Start Last Admin Trade Name Freq PRN Reason Stop Dose Admin Acetaminophen 650 mg 07/31/17 05:57 07/31/17 14:09 Tylenol - PO 650 mg Q6H PRN Administration PAIN Amlodipine Besylate 5 mg 08/01/17 10:00 08/01/17 09:04 Norvasc - PO 5 mg DAILY [facility] Administration Heparin Sodium (Porcine) 5,000 unit 07/31/17 10:00 08/01/17 09:03 Heparin - SQ 5,000 unit BID [facility] Administration Levofloxacin 500 mg in 100 mls @ 100 mls/hr 07/31/17 10:00 08/01/17 09:04 Levaquin 500 Mg Premixed Ivpb - IVPB 100 mls/hr DAILY [facility] Administration Metronidazole 500 mg in 100 mls @ 100 mls/hr 07/31/17 10:00 08/01/17 09:04 Flagyl 500mg Premixed Ivpb - IVPB 100 mls/hr Q8H-IV [facility] Administration Triamterene/HCTZ 1 cap 08/01/17 10:00 08/01/17 09:04 Dyazide 25/37.5mg PO 1 cap DAILY [facility] Administration ASSESSMENT * Acute Ileitis: most likely 2/2 food poisoning. Plan: * Continue Full liquid diet, Advance diet once pain resolves. * Stool cultures and O&P pending * C-Diff sent. * Repeat labs in AM * Continue Levaquin/Flagyl Visit type - Emergency Visit Emergency Visit: Yes ED Registration Date: 07/31/17 Care time: The patient presented to the Emergency Department on the above date and was hospitalized for further evaluation of their emergent condition. - New Patient This patient is new to me today: Yes Date on this admission: 08/01/17 - Critical Care Critical Care patient: No
--- NOTE | 2017-08-01 16:13 | PN ---
Teaching Attending Note Name of Resident: Brett Quevedo ATTENDING PHYSICIAN STATEMENT I saw and evaluated the patient. I reviewed the resident's note and discussed the case with the resident. I agree with the resident's findings and plan as documented. SUBJECTIVE: Abdominal pain persists on the right side. Somewhat improved from admission Describes loose BM's as well as "hillary" Son at bedside, has a history of UC Denies h/o Abx use OBJECTIVE: On exam: Anicteric Hrt RRR Lungs: CTA b/l Abd: sft, +BS, mild TTP mid/lower right abdomen. no guarding/rebound Ext: No LE edema ASSESSMENT Acute ileitis/enteritis: suspect food poisoning as culprit PLAN: Stool for culture, c. diff and O&P if diarrhea persists. D/W nurse Continue Abx for now Daily labs Continue full liquids for now
[2017-08-02] MEDS: METRONIDAZOLE 500 MG PREMIXED 500 MG/100 ML MG IVPB SCH ×3 (01:38→18:07)
[2017-08-02 07:43] LABS: ALBUMIN 3.1 g/dl (3.4-5.0); ANION GAP 6 (8-16); BLOOD UREA NITROGEN 6 mg/dL (7-18); CALCIUM 8.1 mg/dL (8.5-10.1); CHLORIDE 102 mmol/L (98-107); CO2 29 mmol/L (21-32); GLUCOSE,RANDOM 112 mg/dL (74-106); POTASSIUM 3.6 mmol/L (3.5-5.1); SGOT/AST 6 U/L (15-37); SGPT/ALT 13 U/L (12-78); SODIUM 137 mmol/L (136-145)
[2017-08-02 07:44] LABS: BASO % 0.3 % (0-2.0); EOS % 1.8 % (0-4.5); HEMATOCRIT 32.2 % (32.4-45.2); HEMOGLOBIN 10.7 GM/dL (10.7-15.3); LYMPH % 13.6 % (8-40); MCH 28.5 pg (25.7-33.7); MCHC 33.2 g/dl (32.0-36.0); MEAN CELL VOLUME 85.9 fl (80-96); MONO % 9.3 % (3.8-10.2); PLATELET COUNT 206 K/MM3 (134-434); RBC 3.74 M/mm3 (3.60-5.2); RDW 13.3 % (11.6-15.6); WHITE BLOOD COUNT 8.6 K/mm3 (4.0-10.0)
[2017-08-02 07:45] LABS: ALK PHOS 97 U/L (45-117); BILIRUBIN,TOTAL 1.1 mg/dL (0.2-1.0); CREATININE 0.7 mg/dL (0.55-1.02); TOT PROT 6.6 g/dl (6.4-8.2)
--- NOTE | 2017-08-02 10:05 | PN ---
Progress Note, Physician Chief Complaint: Pt resting comfortably,ambulating HAD NL BOWEL MOVEMENT Rt lower quadrant pain improved,no nausea,vomiting afebrile GI f/u appreciated CT abdomen report appreciated Pt is on clear liquid ADVANCE DIET TOLERATED stool studies pending - Current Medication List Current Medications: Active Medications Acetaminophen (Tylenol -) 650 mg PO Q6H PRN PRN Reason: PAIN Last Admin: 07/31/17 14:09 Dose: 650 mg Amlodipine Besylate (Norvasc -) 5 mg PO DAILY [facility] Last Admin: 08/01/17 09:04 Dose: 5 mg Heparin Sodium (Porcine) (Heparin -) 5,000 unit SQ BID [facility] Last Admin: 08/01/17 22:11 Dose: 5,000 unit Levofloxacin (Levaquin 500 Mg Premixed Ivpb -) 500 mg in 100 mls @ 100 mls/hr IVPB DAILY [facility] Last Admin: 08/01/17 09:04 Dose: 100 mls/hr Metronidazole (Flagyl 500mg Premixed Ivpb -) 500 mg in 100 mls @ 100 mls/hr IVPB Q8H-IV [facility] Last Admin: 08/02/17 01:38 Dose: 100 mls/hr Triamterene/HCTZ (Dyazide 25/37.5mg) 1 cap PO DAILY [facility] Last Admin: 08/01/17 09:04 Dose: 1 cap - Objective Vital Signs: Vital Signs Temperature 99.3 F 08/02/17 05:35 Pulse Rate 69 08/02/17 05:35 Respiratory Rate 20 08/02/17 05:35 Blood Pressure 131/64 08/02/17 05:35 O2 Sat by Pulse Oximetry (%) 97 08/01/17 21:00 Constitutional: Yes: No Distress Eyes: Yes: Conjunctiva Clear HENT: Yes: Atraumatic Neck: Yes: Supple Cardiovascular: Yes: Regular Rate and Rhythm Respiratory: Yes: Regular, CTA Bilaterally Gastrointestinal: Yes: Normal Bowel Sounds, Soft, Tenderness (rt lower quadrant) Musculoskeletal: Yes: WNL Extremities: Yes: WNL Edema: No Peripheral Pulses WNL: Yes Neurological: Yes: WNL, Alert ...Motor Strength: WNL Psychiatric: Yes: WNL Labs: CBC, BMP 08/02/17 06:00 08/02/17 06:00 Assessment/Plan Rt lower quadrant pain ?mesentric lymphadenitis IMPROVED Terminal ileitis HTN Diverticulosis PLAN Continue antibiotics Advance diet as tolerated Will f/u GI rec monitor cbc Continue BP meds
[2017-08-02] MEDS ORDERED: PT OWN MED DRAWER 7, Y5N ONE (11:05)
[2017-08-02] MEDS: LEVOFLOXACIN 500 MG IVPB 500 MG/100 ML BAG IVPB SCH (11:07)
[2017-08-02] MEDS: HEPARIN NA (PORCINE) 5,000 UNITS/ML 1ML VIAL SQ SCH ×2 (11:08→21:32)
[2017-08-02] MEDS: amLODIPine BESYLATE 5 MG TABLET (FP) PO SCH (11:09)
[2017-08-02] MEDS: TRIAMTERENE AND HCTZ - 37.5 MG/25 MG CAPSULE PO SCH (11:10)
--- NOTE | 2017-08-02 19:52 | PN ---
GI Progress Note Subjective: GI NOte: Hungry for food. Wants prune juice to get her bowels moving. NO pain or fever. Will stop antibiotics. Will advance . If tolerated can discharge in AM. - Objective Vital Signs: Vital Signs Temperature 98.6 F 08/02/17 13:42 Pulse Rate 71 08/02/17 13:42 Respiratory Rate 20 08/02/17 13:42 Blood Pressure 136/79 08/02/17 13:42 O2 Sat by Pulse Oximetry (%) 97 08/01/17 21:00 Microbiology 08/01/17 20:00 Stool Clostridium difficile Antigen (AARON) - Final 08/01/17 20:00 Stool Clostridium difficile Toxin Assay - Final Laboratory Tests 07/31/17 08/02/17 00:29 06:00 WBC 17.1 H 8.6 Hgb 10.7 Constitutional: Calm ...Auscultate: Yes: Normoactive Bowel Sounds ...Palpate: Yes: Soft, Other (nontender) Labs: CBC, BMP 08/02/17 06:00 08/02/17 06:00 Assessment/Plan lactose free solid diet stop antibiotics if tolerates diet can discharge in AM Problem List - Problems (1) Terminal ileitis Assessment/Plan: Resolved mesenteric adenitis. Will stop antibiotics and advance diet. If tolerated can discharge in AM. Code(s): K50.00 - CROHN'S DISEASE OF SMALL INTESTINE WITHOUT COMPLICATIONS Qualifiers: Digestive disease complication type: without complication Qualified Code(s) : K50.00 - Crohn's disease of small intestine without complications (2) Mesenteric adenitis Code(s): I88.0 - NONSPECIFIC MESENTERIC LYMPHADENITIS (3) Colon polyps Code(s): K63.5 - POLYP OF COLON (4) Diverticulosis of colon Code(s): K57.30 - DVRTCLOS OF LG INT W/O PERFORATION OR ABSCESS W/O BLEEDING
--- NOTE | 2017-08-03 07:10 | PN ---
Progress Note, Physician Chief Complaint: Pt resting comfortably,ambulating,afebrile HAD NL BOWEL MOVEMENT Rt lower quadrant pain improved,no nausea,vomiting afebrile GI f/u appreciated stool c diff negative antibiotics stopped - Current Medication List Current Medications: Active Medications Acetaminophen (Tylenol -) 650 mg PO Q6H PRN PRN Reason: PAIN Last Admin: 07/31/17 14:09 Dose: 650 mg Amlodipine Besylate (Norvasc -) 5 mg PO DAILY [facility] Last Admin: 08/02/17 11:09 Dose: 5 mg Heparin Sodium (Porcine) (Heparin -) 5,000 unit SQ BID [facility] Last Admin: 08/02/17 21:32 Dose: 5,000 unit Triamterene/HCTZ (Dyazide 25/37.5mg) 1 cap PO DAILY [facility] Last Admin: 08/02/17 11:10 Dose: 1 cap - Objective Vital Signs: Vital Signs Temperature 97.6 F 08/03/17 06:23 Pulse Rate 64 08/03/17 06:23 Respiratory Rate 20 08/03/17 06:23 Blood Pressure 147/71 08/03/17 06:23 O2 Sat by Pulse Oximetry (%) 100 08/02/17 21:00 Constitutional: Yes: No Distress Eyes: Yes: Conjunctiva Clear HENT: Yes: Atraumatic Neck: Yes: Supple Cardiovascular: Yes: Regular Rate and Rhythm Respiratory: Yes: Regular Gastrointestinal: Yes: Normal Bowel Sounds, Soft, Other (no tenderness) Musculoskeletal: Yes: WNL Extremities: Yes: WNL Edema: No Peripheral Pulses WNL: Yes Neurological: Yes: WNL, Alert ...Motor Strength: WNL Psychiatric: Yes: Alert, Oriented Labs: CBC, BMP 08/02/17 06:00 08/02/17 06:00 Assessment/Plan Rt lower quadrant pain ?mesentric lymphadenitis IMPROVED,afebrile,pt tolerated regular food Terminal ileitis HTN Diverticulosis Plan d/c home continue home meds f/u with GI and PMD in 1 week
[2017-08-03 09:24] VITALS: BP 151/81; PULSE 76; TEMP 98.6
[2017-08-03] MEDS: HEPARIN NA (PORCINE) 5,000 UNITS/ML 1ML VIAL SQ SCH ×2 (09:32→09:36)
[2017-08-03] MEDS: TRIAMTERENE AND HCTZ - 37.5 MG/25 MG CAPSULE PO SCH (09:33)
[2017-08-03] MEDS: amLODIPine BESYLATE 5 MG TABLET (FP) PO SCH (09:33)
--- NOTE | 2017-08-03 22:37 | DS ---
Physical Examination Vital Signs: Vital Signs Temperature 98.6 F 08/03/17 09:21 Pulse Rate 76 08/03/17 09:21 Respiratory Rate 20 08/03/17 09:21 Blood Pressure 151/81 08/03/17 09:21 O2 Sat by Pulse Oximetry (%) 100 08/03/17 09:00 Labs: CBC, BMP 08/02/17 06:00 08/02/17 06:00 Discharge Summary Reason For Visit: TERMINAL ILEITIS Terminal ileitis mesentric adenitis diverticulosis HTN Hospital Course: 62 yr old female with H/o HTN,Diet controlled DM admitted with Rt lowe qudrant pain and mild fever Vitals were stable At the time of admission WBC was 17. CMP was NL CT abdomen and pelvis shows terminal ileitis,Urine cul negative.and stool studies were negative Pt was treated with IV fluid,IV levaquin and flagyl and GI consult Diet advanced as tolerated Pt tolerated regular diet pt was afebrile during hospitalisation Pt was stable on the floor during hospitalisation Pt d/c home in a stable condition on home meds Condition: Stable - Instructions Referrals: Catrachito Daly MD [Primary Care Provider] - Disposition: HOME - Home Medications Comprehensive Discharge Medication List: Ambulatory Orders Aspirin 81 mg PO DAILY 11/08/13 Triamterene/Hydrochlorothiazid [Maxzide 37.5 mg-25 mg Tablet] 1 each PO HS 11/08 Amlodipine Besylate 5 mg PO DAILY 07/30/17
== END 2017-08-03 13:23 | disposition home or self-care (01) | DRG 245 ==
LOC: JER 21:39 → JERBED 07-31 05:23 → J7W 07-31 09:07
PROVIDERS: ADMIT Family Medicine; ATTEND Family Medicine
DX: K50.00 Crohn's disease of small intestine without complications (principal); I88.0 Nonspecific mesenteric lymphadenitis; I10 Essential (primary) hypertension; K57.30 Diverticulosis of large intestine without perforation or abscess without bleeding; K63.5 Polyp of colon; E11.9 Type 2 diabetes mellitus without complications
CPT/HCPCS: 36415; 74176-TC; 80048; 80053; 81003; 82550; 82553; 82962; 83605; 83690; 84484; 85025; 85027; 86140; 86671; 87045; 87046; 87086; 87205; 87324; 87449; 87804; 93005; 93010; 99284-25; J1644

== ENCOUNTER 2017-08-29 08:24 | Inpatient (IN) | payer OTHER ==
[2017-08-29 08:43] VITALS: BMI 39.9
[2017-08-29] MEDS ORDERED: SODIUM CHLORIDE 1,000 ML IV ONE ×2 (09:31→11:07)
--- NOTE | 2017-08-29 09:31 | PDOC ---
History of Present Illness <Frank Saenz - Last Filed: 08/29/17 15:02> - General History Source: Patient Exam Limitations: No Limitations - History of Present Illness Initial Comments: 08/29/17 09:58 The patient is a 62 year old female, with a significant past medical history of hypertension, diabetes mellitus type 2, who presents to the emergency department with, one episode of diarrhea (non bloody) and progressively worsening right sided abdominal pain for approx. three days. The patient states she was recently admitted to [facility] with the exact same complaint of right sided abdominal pain on July 31 and diagnosed with ileitis. The patient reports she was discharged on July, (approx. 26 days ago) and has been feeling fine up until this past Tuesday. The patient states that upon waking up Tuesday morning she began having the right sided abdominal pain described as a contraction like feeling, sharp, constant and non- radiating. She also reports one episode of non bloody diarrhea Tuesday morning. The patient reports that she went to a [place] buffet Tuesday night and states that she also had [place] food before the previous onset of abdominal pain. The patient reports associated symptoms of nausea without vomiting and reports her last bowel movement was this morning. She denies recent fevers, chills, headache or dizziness. She denies recent vomit or constipation. She denies recent dysuria, frequency, urgency or hematuria. She denies recent chest pain or shortness of breath. Allergies: Penicillins Past surgical history: Hysterectomy, 3 C-sections Social history: Nonsmoker. Denies EtOH use and recreational drug use. Primary Care Physician: Dr. Daly <Reji Padilla - Last Filed: 08/29/17 16:58> - General Chief Complaint: Pain Stated Complaint: ABD PAIN Time Seen by Provider: 08/29/17 09:01 Past History - Past Medical History Anemia: No Asthma: No Cancer: No Cardiac Disorders: No CVA: No COPD: No CHF: No Dementia: No Diabetes: No GI Disorders: Yes (DIVERTICULOSIS) Disorders: No HTN: Yes Hypercholesterolemia: No Liver Disease: No Seizures: No Thyroid Disease: No - Surgical History Abdominal Surgery: No Appendectomy: No Cardiac Surgery: No Cholecystectomy: No Lung Surgery: No Neurologic Surgery: No Orthopedic Surgery: No - Suicide/Smoking/Psychosocial Hx Smoking History: Never smoked Have you smoked in the past 12 months: No If you are a former smoker, when did you quit?: quit 1978 Information on smoking cessation initiated: No Hx Alcohol Use: No Drug/Substance Use Hx: No Substance Use Type: None Hx Substance Use Treatment: No <Frank Saenz - Last Filed: 08/29/17 15:02> <Amena Padillaian - Last Filed: 08/29/17 16:58> - Past Medical History Allergies/Adverse Reactions: Allergies Allergy/AdvReac Type Severity Reaction Status Date / Time Penicillins Allergy Verified 08/29/17 08:42 Home Medications: Ambulatory Orders Aspirin 81 mg PO HS 11/08/13 Triamterene/Hydrochlorothiazid [Maxzide 37.5 mg-25 mg Tablet] 1 each PO AM 11/08 Amlodipine Besylate 5 mg PO HS 07/30/17 Losartan Potassium 100 mg PO AM 08/29/17 Review of Systems - Review of Systems Constitutional: No: Chills, Fever HEENTM: No: Recent change in vision Respiratory: No: Cough, Shortness of Breath Cardiac (ROS): No: Chest Pain ABD/GI: Yes: See HPI. No: Blood Streaked Bowels, Constipated, Nausea, Vomiting : No: Dysuria, Frequency, Flank Pain All Other Systems: Reviewed and Negative <Frank Saenz - Last Filed: 08/29/17 15:02> *Physical Exam - Vital Signs Last Vital Signs Temp Pulse Resp BP Pulse Ox 98.1 F 70 12 130/70 100 08/29/17 08:40 08/29/17 08:40 08/29/17 08:40 08/29/17 08:40 08/29/17 08:40 <Frank Saenz - Last Filed: 08/29/17 15:02> - Vital Signs Last Vital Signs Temp Pulse Resp BP Pulse Ox 98.1 F 70 12 130/70 100 08/29/17 08:40 08/29/17 08:40 08/29/17 08:40 08/29/17 08:40 08/29/17 08:40 - Physical Exam Comments: 08/29/17 10:00 GENERAL: The patient is awake, alert, and fully oriented, in no acute distress. HEAD: Normal with no signs of trauma. EYES: Pupils equal, round and reactive to light, extraocular movements intact, sclera anicteric, conjunctiva clear with no pallor. ENT: Ears normal, nares patent, oropharynx clear without exudates. Moist mucous membranes. NECK: Normal range of motion, supple without lymphadenopathy, JVD, or masses. LUNGS: Breath sounds equal, clear to auscultation bilaterally. No wheeze/ crackles. HEART: Regular rate and rhythm, normal S1 and S2 without murmur or rub. ABDOMEN: +Diffuse tenderness with referred pain to the right lower quadrant. + Right lower quadrant guarding and rebound. EXTREMITIES: Normal range of motion, no edema. No clubbing or cyanosis. No cords, erythema, or tenderness. NEUROLOGICAL: Cranial nerves II through XII grossly intact. Normal speech, normal gait. PSYCH: Normal mood, normal affect. SKIN: Warm, Dry, normal turgor, no rashes or lesions noted. <Reji Padilla - Last Filed: 08/29/17 16:58> Heart Score/ECG Review #1 ECG reviewed & interpreted by me at: 12:03 General ECG Interpretation: Sinus Rhythm, Normal Rate (71), Normal Intervals ( qtc 439), No acute ischemic changes (nonspecific lateral T wave flattening) <Frank Saenz - Last Filed: 08/29/17 15:02> ED Treatment Course - LABORATORY CBC & Chemistry Diagram: 08/29/17 09:35 08/29/17 09:35 - RADIOLOGY Radiology Studies Ordered: Category Date Time Status ABDOMEN & PELVIS CT WITH CONTR [CT] Stat CT Scan 08/29/17 09:31 Ordered <Frank Saenz - Last Filed: 08/29/17 15:02> - LABORATORY CBC & Chemistry Diagram: 08/29/17 09:35 08/29/17 09:35 - ADDITIONAL ORDERS Additional order review: 08/29/17 09:35 RBC 4.24 MCV 85.9 MCHC 32.6 RDW 13.8 MPV 8.7 Neutrophils % 87.9 H Lymphocytes % 5.9 L D Monocytes % 5.7 Eosinophils % 0.1 D Basophils % 0.4 - RADIOLOGY Radiograph Interpretation: 08/29/17 14:10 EXAM#: TYPE/EXAM: RESULT: [id number] RAD/CHEST PA LAT Chest: Abdominal pain 2 views reveal degenerative changes with wedging, clear lungs, normal mediastinum and sharp angles. The soft tissues are intact. Impression: No acute pathology. Degenerative changes with wedging. No change since 11/04/2015. Reported By: Bernard Grant MD - Medications Given in the ED: ED Medications Discontinued Medications Generic Name Dose Route Start Last Admin Trade Name Wendi PRN Reason Stop Dose Admin Morphine Sulfate 4 mg 08/29/17 09:41 08/29/17 09:54 Morphine Injection - IVPUSH 08/29/17 09:42 4 mg ONCE ONE Administration Ondansetron HCl 4 mg 08/29/17 09:41 08/29/17 09:54 Zofran Injection IVPUSH 08/29/17 09:42 4 mg ONCE ONE Administration <Reji Padilla - Last Filed: 08/29/17 16:58> Medical Decision Making - Medical Decision Making 08/29/17 10:11 A portion of this note was documented by scribe services under my direction. I have reviewed the details of the note, within reason, and agree with the documentation with the following case summary and management plan written by me. 62-year-old female with recent admission for terminal ileitis about one month ago presents now with 3 days of persistent and sharp right lower quadrant pain with some loose nonbloody stool. No fevers or chills, no urinary complaints, no nausea vomiting. Similar to prior episode, symptoms began after eating fast food. Patient has history of diverticulosis, surgical history includes sections and a hysterectomy. On prior admission patient was started on antibiotics which were then stopped after GI evaluation, she states her symptoms recovered well. Afebrile. Well-appearing. Obese, healed vertical hysterectomy scar, slight distention but soft, diffusely tender with referred pain to the right lower quadrant, where there is guarding and rebound. No CVA tenderness 62-year-old female with 3 days of worsening right lower quadrant pain similar to recent diagnosis of terminal ileitis. Question recurrence, unclear whether infectious or toxin mediated. Rule out appendicitis, rule out diverticulitis, rule out UTI. Labs, urinalysis Pain control, nausea control, IV fluid hydration CT of the abdomen and pelvis Reassess 08/29/17 11:08 Leukocytosis of 20.9 with left shift, acute renal insufficiency with creatinine of 1.9, potassium 3.3. CAT scan without IV contrast given the acute renal insufficiency. IV antibiotics given the leukocytosis. Continue IV fluid hydration. Will need readmission. 08/29/17 12:32 vomiting contrast, abd tender but pain improved. infection v. sbo, CXR without obvious dilated bowel loops. Currently at [facility], f/u results then admit. 08/29/17 15:02 CT shows worsening/persistence of terminal ileitis now complicated by microperforation and abscess/collection. Already received antibiotics, discussed with Dr. Daly, who accepts patient for inpatient med surge. Requests consultation from Dr. Gee, who was called and refers to Dr. Ceron. Requests Dr. Olvera of Gen. surgery, who was consulted. <Frank Saenz - Last Filed: 08/29/17 15:02> - Medical Decision Making 08/29/17 14:[address] Ceron at 2:43. Pending call back. Call placed to Dr. Daly at 2:50 pm. Case discussed. Call placed to Dr. Olvera at 2:58 pm. Case discussed. <Reji Padilla - Last Filed: 08/29/17 16:58> *DC/Admit/Observation/Transfer - Discharge Dispostion Admit: Yes <Frank Saenz - Last Filed: 08/29/17 15:02> - Attestations Scribe Attestion: 08/29/17 10:00 Documentation prepared by Reji Padilla, acting as bilingual medical assistant for Frank Saenz MD. <Reji Padilla - Last Filed: 08/29/17 16:58> Diagnosis at time of Disposition: Right lower quadrant abdominal pain, Terminal ileitis with abscess - Discharge Dispostion Condition at time of disposition: Fair
[2017-08-29] MEDS ORDERED: morphine CARPU-JECT 4 MG/1 ML DISP.SYRIN IVPUSH ONE (09:41)
[2017-08-29] MEDS ORDERED: ONDANSETRON 4 MG/2 ML VIAL IVPUSH ONE ×2 (09:41→11:09)
[2017-08-29 09:45] LABS: BASO % 0.4 % (0-2.0); EOS % 0.1 % (0-4.5); HEMATOCRIT 36.4 % (32.4-45.2); HEMOGLOBIN 11.9 GM/dL (10.7-15.3); LYMPH % 5.9 % (8-40); MCHC 32.6 g/dl (32.0-36.0); MEAN CELL VOLUME 85.9 fl (80-96); MEAN PLT VOLUME 8.7 fl (7.5-11.1); MONO % 5.7 % (3.8-10.2); NEUT % 87.9 % (42.8-82.8); PLATELET COUNT 221 K/MM3 (134-434); RBC 4.24 M/mm3 (3.60-5.2); RDW 13.8 % (11.6-15.6); WHITE BLOOD COUNT 20.9 K/mm3 (4.0-10.0)
[2017-08-29] MEDS ORDERED: ONDANSETRON 4 MG/2 ML VIAL ONE ×2 (09:49→11:09)
[2017-08-29] MEDS ORDERED: MORPHINE SULFATE 10 MG/1 ML *VIAL ONE (09:49)
[2017-08-29 10:01] LABS: INR 1.22 (0.82-1.09); PROTHROMBIN TIME (PATIENT) 13.8 SEC (9.98-11.88)
[2017-08-29 10:03] LABS: ACTIVATED PTT 28.8 SECONDS (26.9-34.4)
[2017-08-29 10:07] LABS: ALBUMIN 3.4 g/dl (3.4-5.0); ALK PHOS 111 U/L (45-117); ANION GAP 9 (8-16); BILIRUBIN,TOTAL 1.8 mg/dL (0.2-1.0); BLOOD UREA NITROGEN 19 mg/dL (7-18); CALCIUM 8.2 mg/dL (8.5-10.1); CHLORIDE 99 mmol/L (98-107); CO2 27 mmol/L (21-32); CREATININE 1.9 mg/dL (0.55-1.02); GLUCOSE,RANDOM 152 mg/dL (74-106); LIPASE 99 U/L (73-393); POTASSIUM 3.3 mmol/L (3.5-5.1); SGOT/AST 12 U/L (15-37); SGPT/ALT 11 U/L (12-78); SODIUM 135 mmol/L (136-145); TOT PROT 7.3 g/dl (6.4-8.2)
--- NOTE | 2017-08-29 15:33 | CON.GI ---
Consult - Past Medical History Cardio/Vascular: Yes: HTN Gastrointestinal: Yes: Diverticulitis, Diverticulosis, Other (colon polyps) - Past Surgical History Past Surgical History: Yes: Colonoscopy, (x 3), Hysterectomy (MARCO, ovaries intact for fibroids), Tonsillectomy - Alcohol/Substance Use Hx Alcohol Use: No - Smoking History Smoking history: Never smoked Have you smoked in the past 12 months: No If you are a former smoker, when did you quit?: quit 1978 - Social History Usual Living Arrangement: Alone () ADL: Independent Occupation: counsellor for the disabled History of Recent Travel: No Home Medications - Allergies Allergies/Adverse Reactions: Allergies Allergy/AdvReac Type Severity Reaction Status Date / Time Penicillins Allergy Verified 08/29/17 08:42 - Home Medications Home Medications: Ambulatory Orders Aspirin 81 mg PO HS 11/08/13 Triamterene/Hydrochlorothiazid [Maxzide 37.5 mg-25 mg Tablet] 1 each PO AM 11/08 Amlodipine Besylate 5 mg PO HS 07/30/17 Losartan Potassium 100 mg PO AM 08/29/17 Family Disease History - Family Disease History Family Disease History: Heart Disease: Mother ( [place] in her 80s), Other: Father ( of [place] after falling OOB in hospital), Sister (polio) Physical Exam-GI Vital Signs: Vital Signs Temperature 97.6 F 08/29/17 12:25 Pulse Rate 73 08/29/17 12:25 Respiratory Rate 16 08/29/17 12:25 Blood Pressure 109/53 08/29/17 12:25 O2 Sat by Pulse Oximetry (%) 98 08/29/17 12:25 Labs: CBC, BMP 08/29/17 09:35 08/29/17 09:35 INR, PTT INR 1.22 (0.82-1.09) H 08/29/17 09:35 Laboratory Tests 08/29/17 08/29/17 08/29/17 09:35 09:35 09:35 WBC 20.9 H D RBC 4.24 Hgb 11.9 D Hct 36.4 MCV 85.9 MCH 28.0 MCHC 32.6 RDW 13.8 Plt Count 221 MPV 8.7 Neutrophils % 87.9 H Lymphocytes % 5.9 L D Monocytes % 5.7 Eosinophils % 0.1 D Basophils % 0.4 PT with INR 13.80 H INR 1.22 H PTT (Actin FS) 28.8 Sodium 135 L Potassium 3.3 L Chloride 99 Carbon Dioxide 27 Anion Gap 9 BUN 19 H Creatinine 1.9 H Creat Clearance w eGFR 26.87 Random Glucose 152 H Calcium 8.2 L Total Bilirubin 1.8 H D AST 12 L ALT 11 L Alkaline Phosphatase 111 Total Protein 7.3 Albumin 3.4 Lipase 99 Blood Type Antibody Screen 08/29/17 09:35 WBC RBC Hgb Hct MCV MCH MCHC RDW Plt Count MPV Neutrophils % Lymphocytes % Monocytes % Eosinophils % Basophils % PT with INR INR PTT (Actin FS) Sodium Potassium Chloride Carbon Dioxide Anion Gap BUN Creatinine Creat Clearance w eGFR Random Glucose Calcium Total Bilirubin AST ALT Alkaline Phosphatase Total Protein Albumin Lipase Blood Type A POSITIVE Antibody Screen Negative
--- NOTE | 2017-08-29 15:46 | PN ---
Progress Note (short form) - Note Progress Note: Dr Todd is aware and will see the patient
--- NOTE | 2017-08-29 16:06 | CONSULT ---
Consult Consult Specialty:: Surgery Referred by:: Malika Winston - History of Present Illness Chief Complaint: C/O abdominal pain x 3 days, with vomiting. She wasadmitted on 08/03/2017 with simiar pain , and found to have inflammation of the terminal ilium. She was treated with antibiotics and discharged after improvement. Anneliese hasno history of inflammatory bowel disease, Crohns , or colitis. She has had a colonoscopy about 2 years ago. She hasdiabetesmellitus and hypertension. History of Present Illness: 62 year ols woman comes to the Er c/o pain in her right lower quadrant odf abdomen for 3 days with vomiting. Has had normal bowel movement. She has had similar episode about 4 weeks ago. - History Source History Provided By: Patient Limitations to Obtaining History: No Limitations - Past Medical History Cardio/Vascular: Yes: HTN Gastrointestinal: Yes: Diverticulitis, Diverticulosis, Other (colon polyps) - Past Surgical History Past Surgical History: Yes: Colonoscopy, (x 3), Hysterectomy (MARCO, ovaries intact for fibroids), Tonsillectomy - Alcohol/Substance Use Hx Alcohol Use: No - Smoking History Smoking history: Never smoked Have you smoked in the past 12 months: No If you are a former smoker, when did you quit?: quit 1978 - Social History Usual Living Arrangement: Alone () ADL: Independent Occupation: counsellor for the disabled History of Recent Travel: No Home Medications - Allergies Allergies/Adverse Reactions: Allergies Allergy/AdvReac Type Severity Reaction Status Date / Time Penicillins Allergy Verified 08/29/17 08:42 - Home Medications Home Medications: Ambulatory Orders Aspirin 81 mg PO HS 11/08/13 Triamterene/Hydrochlorothiazid [Maxzide 37.5 mg-25 mg Tablet] 1 each PO AM 11/08 Amlodipine Besylate 5 mg PO HS 07/30/17 Losartan Potassium 100 mg PO AM 08/29/17 Family Disease History - Family Disease History Family Disease History: Heart Disease: Mother ( [place] in her 80s), Other: Father ( of [place] after falling OOB in hospital), Sister (polio) Physical Exam Vital Signs: Vital Signs Temperature 98.2 F 08/29/17 15:36 Pulse Rate 73 08/29/17 15:36 Respiratory Rate 18 08/29/17 15:36 Blood Pressure 138/67 08/29/17 15:36 O2 Sat by Pulse Oximetry (%) 98 08/29/17 15:36 Constitutional: Yes: Well Nourished Eyes: Yes: WNL HENT: Yes: WNL Gastrointestinal: Yes: Normal Bowel Sounds, Tenderness. No: Soft (Abdomen is soft not distended, she hasa vertical lower abdominal scar , and another fannenstein incision. She is tender to the right of the midline, with no guarding and no rebound. Pain is medial to the McBurney's point.) Labs: CBC, BMP 08/29/17 09:35 08/29/17 09:35 Imaging - Results Cat Scan: Report Reviewed, Image Reviewed (CT scan was reviewed with radiologist. Thickening of the terminal ilium noted , ? a small air bubble, ? microperforation, with ? inflammatory changes. Appendix was visualised at the last CT scan.) Problem List - Problems (1) Right lower quadrant abdominal pain Code(s): R10.31 - RIGHT LOWER QUADRANT PAIN (2) Terminal ileitis with abscess Code(s): K50.014 - CROHN'S DISEASE OF SMALL INTESTINE WITH ABSCESS Assessment/Plan ? Terminal ileitis, with ? microperforation . treat with antibiotics, NPO , IVfluids. NG tube if patient is vomiting. Follow up patient was explained of the situation and need for surgery , if she does not improve.
[2017-08-29] MEDS ORDERED: HYDROmorphone HCL CARPU-JECT 4 MG/1 ML DISP.SYRIN IM PRN (16:25)
--- NOTE | 2017-08-29 17:05 | CON.GI ---
Consult Consult Specialty:: GI: Dr. Davenport covering for Dr. Todd Referred by:: Dr. Daly Reason for Consultation:: Abdominal pain - History of Present Illness Chief Complaint: "I had pain over the weekend after I ate at a buffet" History of Present Illness: 62F [address] [facility] ER for evaluation of 2 days of severe right lower abdominal pain. She states that she was in her USOH up until this past Tuesday when she developed progressively worsening RLQ abdominal cramping. She described the cramps as intense enough to remind her of labor pain. The pain persisted throughout yesterday and she finally sought evaluation in the ER this morning. Triage vitals revealed her to be afebrile, with P: 70 BP: 130/ 70. She was recently admitted to [facility] the end of this past July after eating shrimp, other seafood and pizza at a [employer] gathering. She denied diarrhea or vomiting. CT scan at that time was consistent with a terminal ileitis and she improved with bowel rest and Abx. Of note the appendix appeared to be normal on that study. She was suspected to have an infectious enteritis / food poisonng and was discharged after she improved clinically with conservative measures of bowel rest and abx. CT scan performed today revealed findings suuspicious for microperforation of the ileum with adjacent phlegmon. She was followed by Dr Albert in the past He perforemd two colonoscopies that revealed diverticulosis that led to the removal of a splenic flexure polyp in 2006 and an ascending colon polyp ( normal tissue on path) in 2013. She did have diverticulositis in the past. Currently she states feeling well. the pain is improved and she has not required IV analgesia since the morning. - History Source History Provided By: Patient, Family Member (son and brother in law present at bedside) - Past Medical History Cardio/Vascular: Yes: HTN Gastrointestinal: Yes: Diverticulitis, Diverticulosis, Other (colon polyps) - Past Surgical History Past Surgical History: Yes: Colonoscopy, (x 3), Hysterectomy (MARCO, ovaries intact for fibroids), Tonsillectomy - Alcohol/Substance Use Hx Alcohol Use: No History of Substance Use: reports: None - Smoking History Smoking history: Former smoker Have you smoked in the past 12 months: No If you are a former smoker, when did you quit?: quit 1978 - Social History Usual Living Arrangement: Alone () ADL: Independent Occupation: counsellor for disabled adults Place of : [place] History of Recent Travel: No Home Medications - Allergies Allergies/Adverse Reactions: Allergies Allergy/AdvReac Type Severity Reaction Status Date / Time Penicillins Allergy Verified 08/29/17 08:42 - Home Medications Home Medications: Ambulatory Orders Aspirin 81 mg PO HS 11/08/13 Triamterene/Hydrochlorothiazid [Maxzide 37.5 mg-25 mg Tablet] 1 each PO AM 11/08 Amlodipine Besylate 5 mg PO HS 07/30/17 Losartan Potassium 100 mg PO AM 08/29/17 Family Disease History - Family Disease History Family Disease History: Heart Disease: Mother ( in her 70's: COPD), Respiratory: Mother, Other: Father ( age 73: CHF), Brother (6, healthy), Sister (2, 1 from polio complications), Son (3, 1 with ulcerative colitis) Other Family History: No family history of colorectal cancer Review of Systems - Review of Systems Constitutional: reports: Chills Cardiovascular: denies: Chest Pain Respiratory: denies: Cough, SOB Gastrointestinal: reports: Abdominal Pain, Constipation (desribed this weekend for which she took prune juice), Nausea. denies: Diarrhea, Melena, Rectal Bleeding, Vomiting, Vomiting Blood Physical Exam-GI Vital Signs: Vital Signs Temperature 98.2 F 08/29/17 15:36 Pulse Rate 73 08/29/17 15:36 Respiratory Rate 18 08/29/17 15:36 Blood Pressure 138/67 08/29/17 15:36 O2 Sat by Pulse Oximetry (%) 98 08/29/17 15:36 Constitutional: Yes: Calm Eyes: No: Sclera Icterus Cardiovascular: Yes: Regular Rate and Rhythm. No: Murmur Respiratory: Yes: CTA Bilaterally Gastrointestinal Inspection: Yes: Scars (+ midline vertical and horizontal pelvic surgical scars). No: Distention ...Auscultate: Yes: Normoactive Bowel Sounds ...Palpate: Yes: Guarding (RLQ, involuntary), Soft, Tenderness. No: Hepatomegaly, Splenomegaly ...Percussion: No: Tympanitic Edema: Yes Edema: LLE: 1+, RLE: 1+ Neurological: Yes: Alert, Oriented Labs: CBC, BMP 08/29/17 09:35 08/29/17 09:35 INR, PTT INR 1.22 (0.82-1.09) H 08/29/17 09:35 Hepatic Panel Total Bilirubin 1.8 mg/dL (0.2-1.0) H D 08/29/17 09:35 AST 12 U/L (15-37) L 08/29/17 09:35 ALT 11 U/L (12-78) L 08/29/17 09:35 Alkaline Phosphatase 111 U/L (45-117) 08/29/17 09:35 Albumin 3.4 g/dl (3.4-5.0) 08/29/17 09:35 Imaging - Results Cat Scan: Report Reviewed, Image Reviewed (discussed with Dr. Hurd. No drainable collection as of yet. Appendix visualized with thickened wall (given previous study and clinical history, he questioned if this reflected secondary inflammatory changes from adjacent ileal process) Problem List - Problems (1) Terminal ileitis with abscess Assessment/Plan: Unclear etiology at this time: ? Perforated ileal diverticulum ? Appendicitis (however given normal appendix during recent similar episode, primary terminal ileal process would be higher in differential) ? IBD (however symptoms acute in onset during both her episodes without other symptomatology in between) Plan for now: Agree with Dr. Olvera with attempt at conservative treatment with bowel rest, IV hydration and IV Abx Daily labs ID consult placed to help tailor Abx therapy in setting of PCN allergy Discussed Ct scan w/ Dr. Hurd. No discernable abscess that would be amenable to percutaneous drainage at this time Code(s): K50.014 - CROHN'S DISEASE OF SMALL INTESTINE WITH ABSCESS
[2017-08-29] MEDS: ONDANSETRON 4 MG/2 ML VIAL IVPUSH PRN (18:05)
[2017-08-29] MEDS: POTASSIUM CHLORIDE 10 MEQ in SODIUM CHLORIDE 0.45% 1,000 ML IVPB SCH (18:24)
--- NOTE | 2017-08-29 19:37 | HP ---
DATE OF ADMISSION: 08/29/2017 Patient is a 62-year-old female with past medical history significant for hypertension, diabetes mellitus, diet-controlled, who came to the emergency room with complaints of 1 episode of diarrhea, nonbloody, and progressively worsening right-sided abdominal pain for 3 days. Patient states she was recently admitted to [facility] for similar symptoms on July 31, 2017, and diagnosed with terminal ileitis. Patient was treated with IV antibiotics and discharged home and recommended to follow with Gastroenterology, but she never followed. Patient has been feeling fine until the past Tuesday, and then patient states she, upon waking up Tuesday, she began having the right-sided abdominal pain, felt like a contraction-like feeling. It was sharp, constant, and nonradiating. Also, reports 1 episode of nonbloody diarrhea Tuesday morning. Patient was slightly nauseous. No vomiting. She went to a [place] restaurant on Tuesday night, and after she had the food, she noticed the symptoms. As per the patient, she developed the last symptoms also after eating the [place] food. Denies any fever, chills. Nonbloody diarrhea episode 1, mild nausea. No vomiting. No urinary symptoms. No constipation. Patient is allergic to PENICILLIN. SURGICAL HISTORY: Hysterectomy and 3 C-sections. MEDICAL HISTORY: Hypertension, diet-controlled diabetes, and history of diverticulosis. PERSONAL HISTORY: No history of alcohol, drugs. Quit smoking more than 30 years ago. MEDICATIONS: Patient is on aspirin 81 mg daily, triamterene/hydrochlorothiazide 37.5/25 daily, Norvasc 5 mg, and losartan 100 mg p.o. daily. REVIEW OF SYSTEMS: General: No history of fever, chills. No weakness. No tiredness and did not notice any change in vision. Respiratory: Nothing significant. Cardiac: Nothing significant. Abdomen: Abdominal pain, right-sided lower quadrant pain. One nonbloody diarrhea. Genitourinary: No urinary symptoms. PHYSICAL EXAMINATION: Vital Signs: In the emergency room, temperature 98.1, pulse rate of 70, respirations 12, BP 130/70, saturation 100. General: Patient alert, oriented, awake. No distress. Neck: Supple. No JVD. Chest: Clear. Cardiovascular: First and 2nd sounds are normal. Abdomen: Soft. Slight tenderness in the right lower quadrant. No guarding. No rigidity. Bowel sounds present. No mass appreciated. Extremities: Full range of movement. No edema. Central Nervous System: No apparent motor or sensory deficit. Reflexes normal. Cranial nerves II through XII normal. Regarding the labs, CBC: WBC 20.9, hemoglobin 11.9, hematocrit of 36.4, platelets 221. Comprehensive: Sodium 135, potassium 3.3, chloride 99, bicarbonate 27, BUN 19, creatinine 1.9, sugar 152, calcium 8.2, total bilirubin 1.8, AST 12, ALT 11, alkaline phosphatase 111, total protein 7.3, albumin 3.4, lipase 99. Chest x-ray: No acute pathology. Only degenerating change with wedging. EKG: Normal sinus rhythm, 71 per minute, nonspecific QT wave in the lateral leads. CT of the abdomen and pelvis shows CT examination of July 31, 2017, compared to that, there is increased concentric wall thickening seen involving the terminal ileum and, to a lesser extent, the remainder of the ileum; increased pericolonic mesenteric soft tissue swelling adjacent to the terminal ileum; development of several extraluminal foci of air is noted adjacent to the terminal ileum, suggestive of localized perforation; and interval development of 7 x 5 x 4 cm fluid collection within the cul-de-sac, suggestive of an abscess; diffuse hepatic steatosis and colonic diverticulosis. Patient admitted to the floor with admitting diagnoses of: 1. Terminal ileitis with abscess/fluid collection in the cul-de-sac. 2. Right lower quadrant pain. 3. Hypertension. 4. Leukocytosis. 5. Hypokalemia. 6. Elevated creatinine. PLAN: Continue the antibiotics, Levaquin and Flagyl; IV fluid; potassium supplement; pain management. GI consult and ID consult called. Repeat CBC and CMP in a.m. Patient stable on the floor. Joan [id number]
[2017-08-29 20:44] LABS: URINE APPEARANCE SLCLOUDY; URINE BILIRUBIN NEGATIVE (NEGATIVE); URINE BLOOD NEGATIVE (NEGATIVE); URINE COLOR YELLOW; URINE GLUCOSE (UA) NEGATIVE (NEGATIVE); URINE KETONE NEGATIVE (NEGATIVE); URINE LEUK ESTERASE NEGATIVE (NEGATIVE); URINE NITRITE NEGATIVE (NEGATIVE); URINE PROTEIN NEGATIVE (NEGATIVE); URINE UROBILINOGEN NEGATIVE mg/dL (0.2-1.0)
[2017-08-29] MEDS: amLODIPine BESYLATE 5 MG TABLET (FP) PO SCH (21:29)
[2017-08-30] MEDS: POTASSIUM CHLORIDE 10 MEQ in SODIUM CHLORIDE 0.45% 1,000 ML IVPB SCH ×3 (06:06→18:25)
[2017-08-30 08:18] LABS: ALBUMIN 2.7 g/dl (3.4-5.0); ANION GAP 13 (8-16); BILIRUBIN,TOTAL 1.2 mg/dL (0.2-1.0); BLOOD UREA NITROGEN 20 mg/dL (7-18); CALCIUM 8.2 mg/dL (8.5-10.1); CHLORIDE 103 mmol/L (98-107); CO2 23 mmol/L (21-32); CREATININE 1.5 mg/dL (0.55-1.02); GLUCOSE,RANDOM 113 mg/dL (74-106); POTASSIUM 3.4 mmol/L (3.5-5.1); SGOT/AST 11 U/L (15-37); SGPT/ALT 10 U/L (12-78); SODIUM 139 mmol/L (136-145); TOT PROT 6.3 g/dl (6.4-8.2)
[2017-08-30 08:26] LABS: ALK PHOS 98 U/L (45-117)
[2017-08-30 08:29] LABS: HEMATOCRIT 31.2 % (32.4-45.2); HEMOGLOBIN 10.2 GM/dL (10.7-15.3); MCH 28.3 pg (25.7-33.7); MCHC 32.8 g/dl (32.0-36.0); MEAN CELL VOLUME 86.3 fl (80-96); MEAN PLT VOLUME 9.9 fl (7.5-11.1); PLATELET COUNT 238 K/MM3 (134-434); RBC 3.62 M/mm3 (3.60-5.2); WHITE BLOOD COUNT 16.6 K/mm3 (4.0-10.0)
[2017-08-30] MEDS ORDERED: PT OWN MED DRAWER 7, Y5N ONE (09:44)
--- NOTE | 2017-08-30 09:45 | PN ---
Progress Note, Physician Chief Complaint: Pt lyimg in bed,slight pressure im the lower abdomen AFEBRILE No vomiting,mild nausea two bowel movements last night - Current Medication List Current Medications: Active Medications Amlodipine Besylate (Norvasc -) 5 mg PO HS [facility] Last Admin: 08/29/17 21:29 Dose: 5 mg Hydromorphone HCl (Dilaudid Injection -) 2 mg IM Q6H PRN PRN Reason: PAIN LEVEL 6-10 Levofloxacin (Levaquin 500 Mg Premixed Ivpb -) 500 mg in 100 mls @ 100 mls/hr IVPB DAILY [facility] PRN Reason: Protocol Last Admin: 08/29/17 17:21 Dose: 100 mls/hr Metronidazole (Flagyl 500mg Premixed Ivpb -) 500 mg in 100 mls @ 100 mls/hr IVPB Q8H-IV [facility] Last Admin: 08/30/17 02:25 Dose: 100 mls/hr Potassium Chloride 10 meq/ (Sodium Chloride) 1,005 mls @ 75 mls/hr IVPB Q13H [facility] Last Admin: 08/30/17 06:06 Dose: Not Given Losartan Potassium (Cozaar -) 100 mg PO DAILY [facility] Ondansetron HCl (Zofran Injection) 4 mg IVPUSH Q8H PRN PRN Reason: NAUSEA AND/OR VOMITING Last Admin: 08/29/17 18:05 Dose: 4 mg Triamterene/HCTZ (Dyazide 25/37.5mg) 1 cap PO DAILY [facility] - Objective Vital Signs: Vital Signs Temperature 98.4 F 08/30/17 07:55 Pulse Rate 72 08/30/17 07:55 Respiratory Rate 20 08/30/17 07:55 Blood Pressure 112/62 08/30/17 07:55 O2 Sat by Pulse Oximetry (%) 98 08/29/17 21:00 Constitutional: Yes: No Distress Eyes: Yes: Conjunctiva Clear HENT: Yes: Atraumatic Neck: Yes: Supple, Trachea Midline Cardiovascular: Yes: Regular Rate and Rhythm Respiratory: Yes: Regular, CTA Bilaterally Gastrointestinal: Yes: Normal Bowel Sounds, Soft Musculoskeletal: Yes: WNL Extremities: Yes: WNL Edema: No Neurological: Yes: WNL ...Motor Strength: WNL Psychiatric: Yes: WNL, Alert Labs: CBC, BMP 08/30/17 06:30 08/30/17 06:30 INR, PTT INR 1.22 (0.82-1.09) H 08/29/17 09:35 - ....Imaging Cat Scan: Report Reviewed Assessment/Plan Terminal ileitis with ? microperforation and abcess formation HTN Diverticulosis PLAN Continue antibiotics IV fluid with k SUPPLIMENT id CONSULT PENDING will f/u surgery and GI rec
[2017-08-30] MEDS: LOSARTAN POTASSIUM 50 MG TABLET (FP) PO SCH (09:53)
[2017-08-30] MEDS: ONDANSETRON 4 MG/2 ML VIAL IVPUSH PRN (09:53)
--- NOTE | 2017-08-30 09:53 | PN ---
Progress Note, Physician - Current Medication List Current Medications: Active Medications Amlodipine Besylate (Norvasc -) 5 mg PO HS [facility] Last Admin: 08/29/17 21:29 Dose: 5 mg Hydromorphone HCl (Dilaudid Injection -) 2 mg IM Q6H PRN PRN Reason: PAIN LEVEL 6-10 Levofloxacin (Levaquin 500 Mg Premixed Ivpb -) 500 mg in 100 mls @ 100 mls/hr IVPB DAILY [facility] PRN Reason: Protocol Last Admin: 08/29/17 17:21 Dose: 100 mls/hr Metronidazole (Flagyl 500mg Premixed Ivpb -) 500 mg in 100 mls @ 100 mls/hr IVPB Q8H-IV [facility] Last Admin: 08/30/17 02:25 Dose: 100 mls/hr Potassium Chloride 10 meq/ (Sodium Chloride) 1,005 mls @ 75 mls/hr IVPB Q13H [facility] Last Admin: 08/30/17 06:06 Dose: Not Given Losartan Potassium (Cozaar -) 100 mg PO DAILY [facility] Ondansetron HCl (Zofran Injection) 4 mg IVPUSH Q8H PRN PRN Reason: NAUSEA AND/OR VOMITING Last Admin: 08/29/17 18:05 Dose: 4 mg Triamterene/HCTZ (Dyazide 25/37.5mg) 1 cap PO DAILY [facility] - Objective Vital Signs: Vital Signs Temperature 98.4 F 08/30/17 07:55 Pulse Rate 72 08/30/17 07:55 Respiratory Rate 20 08/30/17 07:55 Blood Pressure 112/62 08/30/17 07:55 O2 Sat by Pulse Oximetry (%) 98 08/29/17 21:00 Labs: CBC, BMP 08/30/17 06:30 08/30/17 06:30 INR, PTT INR 1.22 (0.82-1.09) H 08/29/17 09:35 Problem List - Problems (1) Right lower quadrant abdominal pain Code(s): R10.31 - RIGHT LOWER QUADRANT PAIN (2) Terminal ileitis with abscess Code(s): K50.014 - CROHN'S DISEASE OF SMALL INTESTINE WITH ABSCESS Assessment/Plan Surgery: Patient is seen and examined. She has less pain . Has had two bowel m ovements, with doarrhea. Abdomen is soft , not distended , not tender. There is no guarding. Clinically shows improvement. WBC is pending, Abndominal X-ray requested.. Continue antibiotics. Terminal ileitis with ? microperforation and phlegmon. will follow. Etiology ?
[2017-08-30] MEDS: TRIAMTERENE AND HCTZ - 37.5 MG/25 MG CAPSULE PO SCH (09:54)
--- NOTE | 2017-08-30 10:50 | CON.ID ---
Consult Consult Specialty:: Infectious Disease Referred by:: Primary Team Reason for Consultation:: Ileitis - History of Present Illness History of Present Illness: 62 year old F with pmh of HTN, DM, and diverticulosis presented witih 3 day history of right sided abdominal pain. Pain has been constant, sharp, nonradiating. Patient was recently discharged with ileitis on 08/03 and was feeling well up until 3 days prior. Patient states she was eating [place]ov[place] buffet when the pain started. Patient denies fever, chills, headache, dizziness , constipation, sob, chest pain. Patient lives at home with grandson. Patient has PCN allergy, she is unsure what the allergy is. Patient also with 2 watery BM overnight (nonbloody) - History Source History Provided By: Patient Limitations to Obtaining History: No Limitations - Past Medical History Cardio/Vascular: Yes: HTN Gastrointestinal: Yes: Diverticulitis, Diverticulosis, Other (colon polyps) - Past Surgical History Past Surgical History: Yes: Colonoscopy, (x 3), Hysterectomy (MARCO, ovaries intact for fibroids), Tonsillectomy - Alcohol/Substance Use Hx Alcohol Use: No History of Substance Use: reports: None - Smoking History Smoking history: Former smoker Have you smoked in the past 12 months: No If you are a former smoker, when did you quit?: quit 1978 - Social History Usual Living Arrangement: Alone () ADL: Independent Occupation: counsellor for disabled adults History of Recent Travel: No Home Medications - Allergies Allergies/Adverse Reactions: Allergies Allergy/AdvReac Type Severity Reaction Status Date / Time Penicillins Allergy Verified 08/29/17 08:42 - Home Medications Home Medications: Ambulatory Orders Aspirin 81 mg PO HS 11/08/13 Triamterene/Hydrochlorothiazid [Maxzide 37.5 mg-25 mg Tablet] 1 each PO AM 11/08 Amlodipine Besylate 5 mg PO HS 07/30/17 Losartan Potassium 100 mg PO AM 08/29/17 Family Disease History - Family Disease History Family Disease History: Heart Disease: Mother ( in her 70's: COPD), Respiratory: Mother, Other: Father ( age 73: CHF), Brother (6, healthy), Sister (2, 1 from polio complications), Son (3, 1 with ulcerative colitis) Other Family History: No family history of colorectal cancer Review of Systems - Review of Systems Constitutional: reports: No Symptoms Eyes: reports: No Symptoms HENT: reports: No Symptoms Neck: reports: No Symptoms Cardiovascular: reports: No Symptoms Respiratory: reports: No Symptoms Genitourinary: reports: Pain Physical Exam Vital Signs: Vital Signs Temperature 98.4 F 08/30/17 07:55 Pulse Rate 72 08/30/17 07:55 Respiratory Rate 20 08/30/17 07:55 Blood Pressure 112/62 08/30/17 07:55 O2 Sat by Pulse Oximetry (%) 98 08/29/17 21:00 Constitutional: Yes: Well Nourished, No Distress, Calm Eyes: Yes: Conjunctiva Clear, EOM Intact HENT: Yes: Atraumatic, Normocephalic Neck: Yes: Supple, Trachea Midline Cardiovascular: Yes: Regular Rate and Rhythm, S1, S2 Respiratory: Yes: Regular, CTA Bilaterally Gastrointestinal: Yes: Normal Bowel Sounds, Soft, Tenderness (Diffuse) Musculoskeletal: Yes: WNL Edema: LLE: Trace, RLE: Trace Labs: CBC, BMP 08/30/17 06:30 08/30/17 06:30 Imaging - Results X-ray: Report Reviewed Cat Scan: Report Reviewed Assessment/Plan Assessment: 1. Terminal Ileitis 2. Microperforation surround terminal ileum 3. 7x5x4 cm abscess in the cul-de-sac Plan: 1. Blood cultures 2. Continue levaquin and flagyl 3. Repeat imaging in a few days to assess abscess 4. Bowel rest 5. IVF
--- NOTE | 2017-08-30 11:37 | EKG ---
Test Reason : Blood Pressure : / mmHG Vent. Rate : 071 BPM Atrial Rate : 071 BPM P-R Int : 142 ms QRS Dur : 096 ms QT Int : 404 ms P-R-T Axes : 052 -04 023 degrees QTc Int : 439 ms NORMAL SINUS RHYTHM NONSPECIFIC T WAVE ABNORMALITY ABNORMAL ECG WHEN COMPARED WITH ECG OF 31-JUL-2017 12:54, NO SIGNIFICANT CHANGE WAS FOUND Confirmed by MD Mark, Andres ([id number]) on 08/30/2017 11:37:20 AM Referred By: Confirmed By:Andres Flores MD
[2017-08-30] MEDS ORDERED: HYDROmorphone HCL CARPU-JECT 4 MG/1 ML DISP.SYRIN IM PRN (12:03)
[2017-08-30] MEDS ORDERED: ACETAMINOPHEN 325 MG TABLET (FP) PO PRN (15:51)
[2017-08-30] MEDS ORDERED: oxyCODONE HCL 5 MG TABLET PO PRN (15:51)
--- NOTE | 2017-08-30 18:43 | PN ---
Teaching Attending Note Name of Resident: Jayant Hammond ATTENDING PHYSICIAN STATEMENT I saw and evaluated the patient. I reviewed the resident's note and discussed the case with the resident. I agree with the resident's findings and plan as documented. SUBJECTIVE: OBJECTIVE: ASSESSMENT AND PLAN: Perforated viscus Possible sepsis seconadry to perforated viscus PCN allergy Await c/s Continue levaquin / flagyl
--- NOTE | 2017-08-30 20:41 | PN ---
GI Progress Note Subjective: GI NOte: Madhuri is feeling better. She had a pasty BM today. The pain is subsiding. I explained that assuming this is not appendicitis the differential includes Crohn's Disease, NSAID ulceration, Meckles diverticulitis, small bowel diverticulitis and carcinoid tumor among other possibilities. I also discussed this with her Cryptologic Support Specialist Nisha at Madhuri's request. - Objective Vital Signs: Vital Signs Temperature 98.6 F 08/30/17 18:19 Pulse Rate 69 08/30/17 18:19 Respiratory Rate 18 08/30/17 18:19 Blood Pressure 131/58 08/30/17 18:19 O2 Sat by Pulse Oximetry (%) 100 08/30/17 09:00 Laboratory Tests 08/29/17 08/30/17 08/30/17 09:35 06:30 06:30 WBC 20.9 H D 16.6 H Hgb 10.2 L D C-Reactive Protein 24.8 H Constitutional: Calm ...Auscultate: Yes: Hypoactive Bowel Sounds ...Palpate: Yes: Soft, Tenderness (mild RLQ tenderness) Labs: CBC, BMP 08/30/17 06:30 08/30/17 06:30 INR, PTT INR 1.22 (0.82-1.09) H 08/29/17 09:35 Assessment/Plan Meckles scan IBD panel, Carcinoid evaluation Continue antibiotics Problem List - Problems (1) Terminal ileitis with abscess Assessment/Plan: The differential includes atypical appendicitis, cecal or small bowel diverticulitis, Crohn's Disease, NSAID ulceration, Meckles diverticulitis, small bowel diverticulitis and carcinoid tumor among other possibilities . I will order a Meckle's scan, 24 hour urine for 5'HIAA, IBD panel . I explained that she may ultimately need a colonoscopy to exclude Crohn's Disease. Code(s): K50.014 - CROHN'S DISEASE OF SMALL INTESTINE WITH ABSCESS
[2017-08-30] MEDS: amLODIPine BESYLATE 5 MG TABLET (FP) PO SCH (21:49)
[2017-08-31] MEDS: POTASSIUM CHLORIDE 10 MEQ in SODIUM CHLORIDE 0.45% 1,000 ML IVPB SCH ×3 (06:37→22:16)
[2017-08-31 07:43] LABS: BASO % 0.2 % (0-2.0); EOS % 0.6 % (0-4.5); HEMOGLOBIN 10.5 GM/dL (10.7-15.3); LYMPH % 10.8 % (8-40); MCH 28.3 pg (25.7-33.7); MCHC 32.8 g/dl (32.0-36.0); MEAN PLT VOLUME 8.7 fl (7.5-11.1); MONO % 8.1 % (3.8-10.2); NEUT % 80.3 % (42.8-82.8); PLATELET COUNT 236 K/MM3 (134-434); RBC 3.72 M/mm3 (3.60-5.2); RDW 13.9 % (11.6-15.6); WHITE BLOOD COUNT 10.2 K/mm3 (4.0-10.0)
--- NOTE | 2017-08-31 08:20 | PN ---
Progress Note, Physician History of Present Illness: No acute events overnight. Patient feels significantly better today. Had 1 nonbloody BM yesterday. Patient is on Day 3 of levaquin/flagyl (PCN allergy). - Current Medication List Current Medications: Active Medications Acetaminophen (Tylenol -) 325 mg PO Q6H PRN PRN Reason: PAIN SCALE 6 -10 Amlodipine Besylate (Norvasc -) 5 mg PO HS [facility] Last Admin: 08/30/17 21:49 Dose: 5 mg Levofloxacin (Levaquin 500 Mg Premixed Ivpb -) 500 mg in 100 mls @ 100 mls/hr IVPB DAILY [facility] PRN Reason: Protocol Last Admin: 08/30/17 11:23 Dose: 100 mls/hr Metronidazole (Flagyl 500mg Premixed Ivpb -) 500 mg in 100 mls @ 100 mls/hr IVPB Q8H-IV [facility] Last Admin: 08/31/17 01:50 Dose: 100 mls/hr Potassium Chloride 10 meq/ (Sodium Chloride) 1,005 mls @ 75 mls/hr IVPB Q13H [facility] Last Admin: 08/31/17 06:37 Dose: 75 mls/hr Losartan Potassium (Cozaar -) 100 mg PO DAILY [facility] Last Admin: 08/30/17 09:53 Dose: 100 mg Ondansetron HCl (Zofran Injection) 4 mg IVPUSH Q8H PRN PRN Reason: NAUSEA AND/OR VOMITING Last Admin: 08/30/17 09:53 Dose: 4 mg Oxycodone HCl (Roxicodone -) 5 mg PO Q6H PRN PRN Reason: PAIN SCALE 6-10 Triamterene/HCTZ (Dyazide 25/37.5mg) 1 cap PO DAILY [facility] Last Admin: 08/30/17 09:54 Dose: 1 cap - Objective Vital Signs: Vital Signs Temperature 98.4 F 08/31/17 06:58 Pulse Rate 74 08/31/17 06:58 Respiratory Rate 20 08/31/17 06:58 Blood Pressure 136/60 08/31/17 06:58 O2 Sat by Pulse Oximetry (%) 98 08/30/17 21:00 Constitutional: Yes: Well Nourished, No Distress, Calm Eyes: Yes: Conjunctiva Clear, EOM Intact HENT: Yes: Atraumatic, Normocephalic Neck: Yes: Supple, Trachea Midline Cardiovascular: Yes: Regular Rate and Rhythm, S1, S2 Respiratory: Yes: Regular, CTA Bilaterally Gastrointestinal: Yes: Normal Bowel Sounds, Soft, Mild abdominal tenderness surrounding umbilicus Musculoskeletal: Yes: WNL Edema: LLE: Trace, RLE: Trace Psychiatric: Yes: Alert, Oriented Labs: CBC, BMP 08/31/17 06:00 INR, PTT INR 1.22 (0.82-1.09) H 08/29/17 09:35 Assessment/Plan Assessment: 1. Terminal Ileitis 2. Microperforation surround terminal ileum 3. 7x5x4 cm abscess in the cul-de-sac Plan: 1. Blood cultures 2. Continue levaquin and flagyl 3. Recommend repeat imaging to assess abscess, possibly on Tuesday. Case discussed with GI 4. Bowel rest 5. IVF
[2017-08-31 08:32] LABS: ALBUMIN 2.7 g/dl (3.4-5.0); ALK PHOS 96 U/L (45-117); ANION GAP 11 (8-16); BLOOD UREA NITROGEN 19 mg/dL (7-18); CALCIUM 8.7 mg/dL (8.5-10.1); CHLORIDE 103 mmol/L (98-107); CO2 25 mmol/L (21-32); CREATININE 1.2 mg/dL (0.55-1.02); GLUCOSE,RANDOM 115 mg/dL (74-106); LDH 138 U/L (84-246); POTASSIUM 3.4 mmol/L (3.5-5.1); SGOT/AST 11 U/L (15-37); SGPT/ALT 9 U/L (12-78); SODIUM 139 mmol/L (136-145); TOT PROT 6.7 g/dl (6.4-8.2)
--- NOTE | 2017-08-31 09:28 | PN ---
Teaching Attending Note Name of Resident: Jayant Hammond ATTENDING PHYSICIAN STATEMENT I saw and evaluated the patient. I reviewed the resident's note and discussed the case with the resident. I agree with the resident's findings and plan as documented. SUBJECTIVE:Discussed with GI Levoflox and metronidazole Feels well OBJECTIVE: ASSESSMENT AND PLAN: Selected Entries 08/31/17 06:58 Temperature 98.4 F Pulse Rate 74 Respiratory 20 Rate Blood Pressure 136/60 Assessment Continue antibiotic with reimaging Jos OWENS
--- NOTE | 2017-08-31 09:33 | PN ---
GI Progress Note Subjective: GI NOte: Pain continues to improve. Only gets the pain when she sits up. Afebrile overnight. - Objective Vital Signs: Vital Signs Temperature 98.4 F 08/31/17 06:58 Pulse Rate 74 08/31/17 06:58 Respiratory Rate 20 08/31/17 06:58 Blood Pressure 136/60 08/31/17 06:58 O2 Sat by Pulse Oximetry (%) 98 08/30/17 21:00 Laboratory Tests 08/30/17 08/30/17 08/31/17 06:30 06:30 06:00 WBC 16.6 H C-Reactive Protein 24.8 H 16.6 H 08/31/17 06:00 WBC 10.2 H D C-Reactive Protein Constitutional: Calm ...Auscultate: Yes: Normoactive Bowel Sounds ...Palpate: Yes: Soft, Other (nontender today) Labs: CBC, BMP 08/31/17 06:00 08/31/17 06:00 INR, PTT INR 1.22 (0.82-1.09) H 08/29/17 09:35 Problem List - Problems (1) Terminal ileitis with abscess Assessment/Plan: For Meckel's scan today and 24 hour urine for 5"HIAA to exclude carcinoid tumor and Meckel's diverticulitis. Discussed case with Dr Arguello. Will ultimately need to repeat CT. If Meckel's scan is negative will consider clear liquids. Code(s): K50.014 - CROHN'S DISEASE OF SMALL INTESTINE WITH ABSCESS
--- NOTE | 2017-08-31 09:50 | PN ---
Progress Note, Physician Chief Complaint: Pt lyimg in bed,slight pressure im the lower abdomen no overnight events,pt feels better id,gi note appreciated awaiting meckel's scan AFEBRILE No vomiting,mild nausea X ray abd report noted.No pneumoperitoneum - Current Medication List Current Medications: Active Medications Acetaminophen (Tylenol -) 325 mg PO Q6H PRN PRN Reason: PAIN SCALE 6 -10 Amlodipine Besylate (Norvasc -) 5 mg PO HS [facility] Last Admin: 08/30/17 21:49 Dose: 5 mg Levofloxacin (Levaquin 500 Mg Premixed Ivpb -) 500 mg in 100 mls @ 100 mls/hr IVPB DAILY [facility] PRN Reason: Protocol Last Admin: 08/30/17 11:23 Dose: 100 mls/hr Metronidazole (Flagyl 500mg Premixed Ivpb -) 500 mg in 100 mls @ 100 mls/hr IVPB Q8H-IV [facility] Last Admin: 08/31/17 01:50 Dose: 100 mls/hr Potassium Chloride 10 meq/ (Sodium Chloride) 1,005 mls @ 75 mls/hr IVPB Q13H [facility] Last Admin: 08/31/17 06:37 Dose: 75 mls/hr Losartan Potassium (Cozaar -) 100 mg PO DAILY [facility] Last Admin: 08/30/17 09:53 Dose: 100 mg Ondansetron HCl (Zofran Injection) 4 mg IVPUSH Q8H PRN PRN Reason: NAUSEA AND/OR VOMITING Last Admin: 08/30/17 09:53 Dose: 4 mg Oxycodone HCl (Roxicodone -) 5 mg PO Q6H PRN PRN Reason: PAIN SCALE 6-10 Triamterene/HCTZ (Dyazide 25/37.5mg) 1 cap PO DAILY [facility] Last Admin: 08/30/17 09:54 Dose: 1 cap - Objective Vital Signs: Vital Signs Temperature 98.4 F 08/31/17 06:58 Pulse Rate 74 08/31/17 06:58 Respiratory Rate 20 08/31/17 06:58 Blood Pressure 136/60 08/31/17 06:58 O2 Sat by Pulse Oximetry (%) 98 08/30/17 21:00 Constitutional: Yes: No Distress Eyes: Yes: Conjunctiva Clear HENT: Yes: Atraumatic Neck: Yes: Supple Cardiovascular: Yes: Regular Rate and Rhythm Respiratory: Yes: Regular, CTA Bilaterally Gastrointestinal: Yes: Normal Bowel Sounds, Soft Musculoskeletal: Yes: WNL Extremities: Yes: WNL Edema: No Peripheral Pulses WNL: Yes Neurological: Yes: WNL, Alert, Oriented ...Motor Strength: WNL Psychiatric: Yes: WNL Labs: CBC, BMP 08/31/17 06:00 08/31/17 06:00 INR, PTT INR 1.22 (0.82-1.09) H 08/29/17 09:35 - ....Imaging X-ray: Report Reviewed Assessment/Plan Terminal ileitis with ? microperforation and abcess formation HTN Diverticulosis PLAN Continue antibiotics IV fluid with k SUPPLIMENT will f/u surgery ,ID and GI rec
[2017-08-31] MEDS ORDERED: PT OWN MED DRAWER 7, Y5N ONE (10:18)
[2017-08-31] MEDS: LOSARTAN POTASSIUM 50 MG TABLET (FP) PO SCH (10:24)
[2017-08-31] MEDS: TRIAMTERENE AND HCTZ - 37.5 MG/25 MG CAPSULE PO SCH (12:49)
[2017-08-31] MEDS: amLODIPine BESYLATE 5 MG TABLET (FP) PO SCH (21:52)
[2017-09-01] MEDS: POTASSIUM CHLORIDE 10 MEQ in SODIUM CHLORIDE 0.45% 1,000 ML IVPB SCH ×3 (01:09→20:08)
[2017-09-01 06:45] LABS: BASO % 0.3 % (0-2.0); EOS % 0.8 % (0-4.5); HEMATOCRIT 30.9 % (32.4-45.2); HEMOGLOBIN 10.4 GM/dL (10.7-15.3); LYMPH % 11.2 % (8-40); MCH 28.9 pg (25.7-33.7); MCHC 33.7 g/dl (32.0-36.0); MEAN CELL VOLUME 85.8 fl (80-96); MONO % 9.8 % (3.8-10.2); NEUT % 77.9 % (42.8-82.8); PLATELET COUNT 259 K/MM3 (134-434); RDW 14.1 % (11.6-15.6); WHITE BLOOD COUNT 9.9 K/mm3 (4.0-10.0)
[2017-09-01 07:16] LABS: ALBUMIN 2.9 g/dl (3.4-5.0); ANION GAP 9 (8-16); BILIRUBIN,TOTAL 1.1 mg/dL (0.2-1.0); BLOOD UREA NITROGEN 17 mg/dL (7-18); CALCIUM 8.2 mg/dL (8.5-10.1); CHLORIDE 104 mmol/L (98-107); CO2 27 mmol/L (21-32); GLUCOSE,RANDOM 105 mg/dL (74-106); POTASSIUM 3.3 mmol/L (3.5-5.1); SGOT/AST 8 U/L (15-37); SGPT/ALT 8 U/L (12-78); SODIUM 140 mmol/L (136-145); TOT PROT 6.4 g/dl (6.4-8.2)
[2017-09-01 07:17] LABS: ALK PHOS 88 U/L (45-117)
--- NOTE | 2017-09-01 09:20 | PN ---
Progress Note, Physician History of Present Illness: Right sided abdominal pain , recurrent with inflamamtory changes of terminal ilium , with microperforation. Patient feels better , with no abdominal pain, no nausea, and no vomiting. Has had bowel movements. - Current Medication List Current Medications: Active Medications Acetaminophen (Tylenol -) 325 mg PO Q6H PRN PRN Reason: PAIN SCALE 6 -10 Amlodipine Besylate (Norvasc -) 5 mg PO HS [facility] Last Admin: 08/31/17 21:52 Dose: 5 mg Levofloxacin (Levaquin 500 Mg Premixed Ivpb -) 500 mg in 100 mls @ 100 mls/hr IVPB DAILY [facility] PRN Reason: Protocol Last Admin: 08/31/17 10:25 Dose: 100 mls/hr Metronidazole (Flagyl 500mg Premixed Ivpb -) 500 mg in 100 mls @ 100 mls/hr IVPB Q8H-IV [facility] Last Admin: 09/01/17 01:15 Dose: 100 mls/hr Potassium Chloride 10 meq/ (Sodium Chloride) 1,005 mls @ 75 mls/hr IVPB Q13H [facility] Last Admin: 09/01/17 01:09 Dose: 75 mls/hr Losartan Potassium (Cozaar -) 100 mg PO DAILY [facility] Last Admin: 08/31/17 10:24 Dose: 100 mg Ondansetron HCl (Zofran Injection) 4 mg IVPUSH Q8H PRN PRN Reason: NAUSEA AND/OR VOMITING Last Admin: 08/30/17 09:53 Dose: 4 mg Oxycodone HCl (Roxicodone -) 5 mg PO Q6H PRN PRN Reason: PAIN SCALE 6-10 Triamterene/HCTZ (Dyazide 25/37.5mg) 1 cap PO DAILY [facility] Last Admin: 08/31/17 12:49 Dose: 1 cap - Objective Vital Signs: Vital Signs Temperature 98.5 F 09/01/17 06:00 Pulse Rate 71 09/01/17 06:00 Respiratory Rate 20 09/01/17 06:00 Blood Pressure 137/77 09/01/17 06:00 O2 Sat by Pulse Oximetry (%) 99 08/31/17 21:00 Labs: CBC, BMP 09/01/17 06:15 09/01/17 06:15 INR, PTT INR 1.22 (0.82-1.09) H 08/29/17 09:35 Problem List - Problems (1) Right lower quadrant abdominal pain Code(s): R10.31 - RIGHT LOWER QUADRANT PAIN (2) Terminal ileitis with abscess Code(s): K50.014 - CROHN'S DISEASE OF SMALL INTESTINE WITH ABSCESS Assessment/Plan Surgery: patient is afebrile, had shortness of breath as per nurses note last night. nuclear scan for Meckels diverticulum, ? ectopc gastric mucosa was negative. Work up for functioning carcinoids requested bt g.i. service. WBC is normal. ? ileitis, etiology ? Continue antibiotics. repeat abdominal x-ray for free air. abdomen is soft , not tender. There is no palpable mass. Follow up abdominal X-ray requested . Continue antibiotics. Will repeat CT scan of abdomen and pelvis on 09/03/2017.
--- NOTE | 2017-09-01 09:58 | PN ---
Progress Note, Physician Chief Complaint: Pt lyimg in bed,no abd pain ,pt feels better id,gi note appreciated meckel's scan negative AFEBRILE No vomiting,mild nausea X ray abd report noted.No pneumoperitoneum - Current Medication List Current Medications: Active Medications Acetaminophen (Tylenol -) 325 mg PO Q6H PRN PRN Reason: PAIN SCALE 6 -10 Amlodipine Besylate (Norvasc -) 5 mg PO HS [facility] Last Admin: 08/31/17 21:52 Dose: 5 mg Levofloxacin (Levaquin 500 Mg Premixed Ivpb -) 500 mg in 100 mls @ 100 mls/hr IVPB DAILY [facility] PRN Reason: Protocol Last Admin: 08/31/17 10:25 Dose: 100 mls/hr Metronidazole (Flagyl 500mg Premixed Ivpb -) 500 mg in 100 mls @ 100 mls/hr IVPB Q8H-IV [facility] Last Admin: 09/01/17 01:15 Dose: 100 mls/hr Potassium Chloride 10 meq/ (Sodium Chloride) 1,005 mls @ 75 mls/hr IVPB Q13H [facility] Last Admin: 09/01/17 01:09 Dose: 75 mls/hr Losartan Potassium (Cozaar -) 100 mg PO DAILY [facility] Last Admin: 08/31/17 10:24 Dose: 100 mg Ondansetron HCl (Zofran Injection) 4 mg IVPUSH Q8H PRN PRN Reason: NAUSEA AND/OR VOMITING Last Admin: 08/30/17 09:53 Dose: 4 mg Oxycodone HCl (Roxicodone -) 5 mg PO Q6H PRN PRN Reason: PAIN SCALE 6-10 Triamterene/HCTZ (Dyazide 25/37.5mg) 1 cap PO DAILY [facility] Last Admin: 08/31/17 12:49 Dose: 1 cap - Objective Vital Signs: Vital Signs Temperature 98.5 F 09/01/17 06:00 Pulse Rate 71 09/01/17 06:00 Respiratory Rate 20 09/01/17 06:00 Blood Pressure 137/77 09/01/17 06:00 O2 Sat by Pulse Oximetry (%) 99 08/31/17 21:00 Constitutional: Yes: No Distress Eyes: Yes: Conjunctiva Clear HENT: Yes: Atraumatic Neck: Yes: Supple, Trachea Midline Cardiovascular: Yes: Regular Rate and Rhythm Respiratory: Yes: Regular, CTA Bilaterally Gastrointestinal: Yes: Normal Bowel Sounds, Soft Genitourinary: Yes: WNL Musculoskeletal: Yes: WNL Extremities: Yes: WNL Edema: No Peripheral Pulses WNL: Yes Neurological: Yes: WNL, Alert ...Motor Strength: WNL Psychiatric: Yes: WNL Labs: CBC, BMP 09/01/17 06:15 09/01/17 06:15 INR, PTT INR 1.22 (0.82-1.09) H 08/29/17 09:35 Assessment/Plan Terminal ileitis with ? microperforation and abcess formation HTN Diverticulosis PLAN Continue antibiotics IV fluid with k SUPPLIMENT will f/u surgery ,ID and GI rec
--- NOTE | 2017-09-01 10:21 | PN ---
GI Progress Note Subjective: No acute events Abdominal pain improved Complains of perianal discomfort No diarrhea - Objective Vital Signs: Vital Signs Temperature 98.5 F 09/01/17 06:00 Pulse Rate 71 09/01/17 06:00 Respiratory Rate 20 09/01/17 06:00 Blood Pressure 137/77 09/01/17 06:00 O2 Sat by Pulse Oximetry (%) 99 08/31/17 21:00 Constitutional: Calm Eyes: No: Sclera Icterus Cardiovascular: Yes: Regular Rate and Rhythm. No: Murmur Respiratory: Yes: CTA Bilaterally Gastrointestinal Inspection: No: Distention ...Auscultate: Yes: Normoactive Bowel Sounds ...Palpate: Yes: Tenderness (Impropved TTP RLQ. No longer guarding). No: Guarding, Tenderness, Rebound ...Percussion: No: Tympanitic ...Rectal Exam: Yes: Other (No external lesions, no masses palpated, light brown stool, guaiac negative) Edema: Yes (Trace LE edema) Labs: CBC, BMP 09/01/17 06:15 09/01/17 06:15 INR, PTT INR 1.22 (0.82-1.09) H 08/29/17 09:35 - ....Imaging Other: Other (Meckel's scan neg) Problem List - Problems (1) Terminal ileitis with abscess Assessment/Plan: Clinically much improved For repeat CT scan tomorrow per surgery ID following Meckel's scan negative and urine collection for 5HIAA to be started today AM Labs, IV Abx, NPO, IV hydration Code(s): K50.014 - CROHN'S DISEASE OF SMALL INTESTINE WITH ABSCESS
[2017-09-01] MEDS: TRIAMTERENE AND HCTZ - 37.5 MG/25 MG CAPSULE PO SCH (10:24)
[2017-09-01] MEDS: LOSARTAN POTASSIUM 50 MG TABLET (FP) PO SCH (10:24)
[2017-09-01] MEDS ORDERED: POTASSIUM CHLORIDE TABS 20 MEQ TABLET.ER (FP) PO ONE (10:30)
[2017-09-01] MEDS ORDERED: WITCH HAZEL 50% (TUCKS) 40 PAD/JAR PAD TP PRN (10:35)
--- NOTE | 2017-09-01 15:28 | PN ---
Progress Note, Physician History of Present Illness: No acute events overnight. Patient feeling well today. States abdominal pain has been improving daily. Patient continues on Levaquin/Flagyl - Current Medication List Current Medications: Active Medications Acetaminophen (Tylenol -) 325 mg PO Q6H PRN PRN Reason: PAIN SCALE 6 -10 Amlodipine Besylate (Norvasc -) 5 mg PO HS [facility] Last Admin: 08/31/17 21:52 Dose: 5 mg Levofloxacin (Levaquin 500 Mg Premixed Ivpb -) 500 mg in 100 mls @ 100 mls/hr IVPB DAILY [facility] PRN Reason: Protocol Last Admin: 09/01/17 09:10 Dose: 100 mls/hr Metronidazole (Flagyl 500mg Premixed Ivpb -) 500 mg in 100 mls @ 100 mls/hr IVPB Q8H-IV [facility] Last Admin: 09/01/17 10:26 Dose: 100 mls/hr Potassium Chloride 10 meq/ (Sodium Chloride) 1,005 mls @ 75 mls/hr IVPB Q13H [facility] Last Admin: 09/01/17 10:04 Dose: Not Given Losartan Potassium (Cozaar -) 100 mg PO DAILY [facility] Last Admin: 09/01/17 10:24 Dose: 100 mg Ondansetron HCl (Zofran Injection) 4 mg IVPUSH Q8H PRN PRN Reason: NAUSEA AND/OR VOMITING Last Admin: 08/30/17 09:53 Dose: 4 mg Oxycodone HCl (Roxicodone -) 5 mg PO Q6H PRN PRN Reason: PAIN SCALE 6-10 Triamterene/HCTZ (Dyazide 25/37.5mg) 1 cap PO DAILY [facility] Last Admin: 09/01/17 10:24 Dose: 1 cap Witch Pam/Glycerin (Tucks Pads -) 1 pad TP TID PRN PRN Reason: Perianal discomfort - Objective Vital Signs: Vital Signs Temperature 98.5 F 09/01/17 06:00 Pulse Rate 71 09/01/17 06:00 Respiratory Rate 20 09/01/17 06:00 Blood Pressure 137/77 09/01/17 06:00 O2 Sat by Pulse Oximetry (%) 99 08/31/17 21:00 Constitutional: Yes: Well Nourished, No Distress, Calm Eyes: Yes: Conjunctiva Clear, EOM Intact HENT: Yes: Atraumatic, Normocephalic Neck: Yes: Supple, Trachea Midline Cardiovascular: Yes: Regular Rate and Rhythm, S1, S2 Respiratory: Yes: Regular, CTA Bilaterally Gastrointestinal: Yes: Normal Bowel Sounds, Soft, Mild abdominal tenderness surrounding umbilicus Musculoskeletal: Yes: WNL Edema: LLE: Trace, RLE: Trace Psychiatric: Yes: Alert, Oriented Labs: CBC, BMP 09/01/17 06:15 09/01/17 06:15 INR, PTT INR 1.22 (0.82-1.09) H 08/29/17 09:35 Assessment/Plan Assessment: 1. Terminal Ileitis 2. Microperforation surround terminal ileum 3. 7x5x4 cm abscess in the cul-de-sac Plan: 1. Blood cultures-- NGTD 2. Continue levaquin and flagyl 3. Recommend repeat imaging to assess abscess, possibly on Tuesday. Case discussed with GI 4. Bowel rest 5. IVF
--- NOTE | 2017-09-01 17:04 | PN ---
Teaching Attending Note Name of Resident: Jayant Hammond ATTENDING PHYSICIAN STATEMENT I saw and evaluated the patient. I reviewed the resident's note and discussed the case with the resident. I agree with the resident's findings and plan as documented. SUBJECTIVE: Feeling better Less abdo pain No N/V + Pasty BM OBJECTIVE: Abdomen obese, soft, non tender ASSESSMENT AND PLAN: Perforated viscus Leukocytosis- resolved PCN allergy Continue empiric levaquin/ flagyl Follow up imaging per GI/ Surgery
[2017-09-01] MEDS: amLODIPine BESYLATE 5 MG TABLET (FP) PO SCH (21:39)
[2017-09-02] MEDS: POTASSIUM CHLORIDE 10 MEQ in SODIUM CHLORIDE 0.45% 1,000 ML IVPB SCH ×3 (00:23→15:23)
[2017-09-02 08:00] LABS: BASO % 0.4 % (0-2.0); HEMATOCRIT 31.5 % (32.4-45.2); HEMOGLOBIN 10.8 GM/dL (10.7-15.3); MCH 29.3 pg (25.7-33.7); MCHC 34.3 g/dl (32.0-36.0); MEAN CELL VOLUME 85.5 fl (80-96); MEAN PLT VOLUME 8.6 fl (7.5-11.1); MONO % 9.1 % (3.8-10.2); NEUT % 75.5 % (42.8-82.8); PLATELET COUNT 279 K/MM3 (134-434); RBC 3.69 M/mm3 (3.60-5.2); RDW 13.8 % (11.6-15.6); WHITE BLOOD COUNT 10.6 K/mm3 (4.0-10.0)
--- NOTE | 2017-09-02 08:01 | PN ---
Progress Note, Physician - Current Medication List Current Medications: Active Medications Acetaminophen (Tylenol -) 325 mg PO Q6H PRN PRN Reason: PAIN SCALE 6 -10 Amlodipine Besylate (Norvasc -) 5 mg PO HS [facility] Last Admin: 09/01/17 21:39 Dose: 5 mg Levofloxacin (Levaquin 500 Mg Premixed Ivpb -) 500 mg in 100 mls @ 100 mls/hr IVPB DAILY [facility] PRN Reason: Protocol Last Admin: 09/01/17 09:10 Dose: 100 mls/hr Metronidazole (Flagyl 500mg Premixed Ivpb -) 500 mg in 100 mls @ 100 mls/hr IVPB Q8H-IV [facility] Last Admin: 09/02/17 01:22 Dose: 100 mls/hr Potassium Chloride 10 meq/ (Sodium Chloride) 1,005 mls @ 75 mls/hr IVPB Q13H [facility] Last Admin: 09/02/17 00:23 Dose: Not Given Losartan Potassium (Cozaar -) 100 mg PO DAILY [facility] Last Admin: 09/01/17 10:24 Dose: 100 mg Ondansetron HCl (Zofran Injection) 4 mg IVPUSH Q8H PRN PRN Reason: NAUSEA AND/OR VOMITING Last Admin: 08/30/17 09:53 Dose: 4 mg Oxycodone HCl (Roxicodone -) 5 mg PO Q6H PRN PRN Reason: PAIN SCALE 6-10 Triamterene/HCTZ (Dyazide 25/37.5mg) 1 cap PO DAILY [facility] Last Admin: 09/01/17 10:24 Dose: 1 cap Witch Pam/Glycerin (Tucks Pads -) 1 pad TP TID PRN PRN Reason: Perianal discomfort - Objective Vital Signs: Vital Signs Temperature 98.4 F 09/02/17 06:49 Pulse Rate 70 09/02/17 06:49 Respiratory Rate 18 09/02/17 06:49 Blood Pressure 134/57 09/02/17 06:49 O2 Sat by Pulse Oximetry (%) 99 09/01/17 21:00 Labs: INR, PTT INR 1.22 (0.82-1.09) H 08/29/17 09:35 Problem List - Problems (1) Right lower quadrant abdominal pain Code(s): R10.31 - RIGHT LOWER QUADRANT PAIN (2) Terminal ileitis with abscess Code(s): K50.014 - CROHN'S DISEASE OF SMALL INTESTINE WITH ABSCESS Assessment/Plan Surgery: Patient feels better. CT scan follow up requested for tomorrow. WBC Normal. Abdomen is soft and not tender. She has no abdominal apin. Abdominal X-ray does not show any pneumoperitoneum. Will do abdominal Ct scan tomorrow, before resuming oral feeding. continue antibiotics. Patient is aware.
[2017-09-02 09:08] LABS: ALBUMIN 2.9 g/dl (3.4-5.0); BILIRUBIN,TOTAL 1.1 mg/dL (0.2-1.0); CHLORIDE 101 mmol/L (98-107); POTASSIUM 3.6 mmol/L (3.5-5.1); SGOT/AST 15 U/L (15-37); SODIUM 140 mmol/L (136-145)
[2017-09-02 09:18] LABS: ALK PHOS 91 U/L (45-117); ANION GAP 16 (8-16); BLOOD UREA NITROGEN 14 mg/dL (7-18); CALCIUM 8.6 mg/dL (8.5-10.1); CO2 23 mmol/L (21-32); CREATININE 0.8 mg/dL (0.55-1.02); GLUCOSE,RANDOM 97 mg/dL (74-106); SGPT/ALT 9 U/L (12-78); TOT PROT 6.7 g/dl (6.4-8.2)
--- NOTE | 2017-09-02 09:55 | PN ---
Progress Note, Physician Chief Complaint: Pt lyimg in bed,no abd pain ,pt feels better,afebrile,wbc NL id,gi note appreciated meckel's scan negative AFEBRILE No vomiting,mild nausea X ray abd report noted.No pneumoperitoneum - Current Medication List Current Medications: Active Medications Acetaminophen (Tylenol -) 325 mg PO Q6H PRN PRN Reason: PAIN SCALE 6 -10 Amlodipine Besylate (Norvasc -) 5 mg PO HS [facility] Last Admin: 09/01/17 21:39 Dose: 5 mg Levofloxacin (Levaquin 500 Mg Premixed Ivpb -) 500 mg in 100 mls @ 100 mls/hr IVPB DAILY [facility] PRN Reason: Protocol Last Admin: 09/01/17 09:10 Dose: 100 mls/hr Metronidazole (Flagyl 500mg Premixed Ivpb -) 500 mg in 100 mls @ 100 mls/hr IVPB Q8H-IV [facility] Last Admin: 09/02/17 01:22 Dose: 100 mls/hr Potassium Chloride 10 meq/ (Sodium Chloride) 1,005 mls @ 75 mls/hr IVPB Q13H [facility] Last Admin: 09/02/17 00:23 Dose: Not Given Losartan Potassium (Cozaar -) 100 mg PO DAILY [facility] Last Admin: 09/01/17 10:24 Dose: 100 mg Ondansetron HCl (Zofran Injection) 4 mg IVPUSH Q8H PRN PRN Reason: NAUSEA AND/OR VOMITING Last Admin: 08/30/17 09:53 Dose: 4 mg Oxycodone HCl (Roxicodone -) 5 mg PO Q6H PRN PRN Reason: PAIN SCALE 6-10 Triamterene/HCTZ (Dyazide 25/37.5mg) 1 cap PO DAILY [facility] Last Admin: 09/01/17 10:24 Dose: 1 cap Witch Pam/Glycerin (Tucks Pads -) 1 pad TP TID PRN PRN Reason: Perianal discomfort - Objective Vital Signs: Vital Signs Temperature 98.4 F 09/02/17 06:49 Pulse Rate 70 09/02/17 06:49 Respiratory Rate 18 09/02/17 06:49 Blood Pressure 134/57 09/02/17 06:49 O2 Sat by Pulse Oximetry (%) 99 09/01/17 21:00 Constitutional: Yes: No Distress Eyes: Yes: Conjunctiva Clear HENT: Yes: Atraumatic Neck: Yes: Supple, Trachea Midline Cardiovascular: Yes: Regular Rate and Rhythm Respiratory: Yes: Regular, CTA Bilaterally Gastrointestinal: Yes: Normal Bowel Sounds, Soft ...Rectal Exam: Yes: WNL Genitourinary: Yes: WNL Musculoskeletal: Yes: WNL Extremities: Yes: WNL Edema: No Peripheral Pulses WNL: Yes Neurological: Yes: WNL, Alert, Oriented ...Motor Strength: WNL Psychiatric: Yes: WNL Labs: CBC, BMP 09/02/17 06:30 09/02/17 06:30 INR, PTT INR 1.22 (0.82-1.09) H 08/29/17 09:35 - ....Imaging X-ray: Report Reviewed Assessment/Plan Terminal ileitis with ? microperforation and abcess formation HTN Diverticulosis PLAN Continue antibiotics will f/u surgery ,ID and GI rec For ct abdomen tommorow
--- NOTE | 2017-09-02 10:03 | PN ---
GI Progress Note Subjective: Dr. Davenport covering for Dr. Todd Abdominal pain resolved States feeling well No acute events - Objective Vital Signs: Vital Signs Temperature 98.4 F 09/02/17 06:49 Pulse Rate 70 09/02/17 06:49 Respiratory Rate 18 09/02/17 06:49 Blood Pressure 134/57 09/02/17 06:49 O2 Sat by Pulse Oximetry (%) 99 09/01/17 21:00 Constitutional: Calm Eyes: No: Sclera Icterus Cardiovascular: Yes: Regular Rate and Rhythm Respiratory: Yes: CTA Bilaterally ...Auscultate: Yes: Normoactive Bowel Sounds ...Palpate: No: Tenderness ...Percussion: No: Tympanitic Edema: No (No LE edema) Neurological: Yes: Alert, Oriented Labs: CBC, BMP 09/02/17 06:30 09/02/17 06:30 INR, PTT INR 1.22 (0.82-1.09) H 08/29/17 09:35 Laboratory Tests 08/30/17 08/31/17 09/02/17 06:30 06:00 06:30 C-Reactive Protein 24.8 H 16.6 H 10.1 H Problem List - Problems (1) Terminal ileitis with abscess Assessment/Plan: Clinically much improved For repeat CT scan abd/pelvis maxx IV Abx per ID Clears if OK with surgery Dr. Ceron covering from 5pm tonight through the weekend Code(s): K50.014 - CROHN'S DISEASE OF SMALL INTESTINE WITH ABSCESS
[2017-09-02] MEDS: LOSARTAN POTASSIUM 50 MG TABLET (FP) PO SCH (10:15)
[2017-09-02] MEDS: TRIAMTERENE AND HCTZ - 37.5 MG/25 MG CAPSULE PO SCH (10:16)
--- NOTE | 2017-09-02 11:10 | PN ---
Progress Note, Physician History of Present Illness: No acute events overnight. Patient feeling well today. States abdominal pain has been improving daily. Patient continues on Levaquin/Flagyl - Current Medication List Current Medications: Active Medications Acetaminophen (Tylenol -) 325 mg PO Q6H PRN PRN Reason: PAIN SCALE 6 -10 Amlodipine Besylate (Norvasc -) 5 mg PO HS [facility] Last Admin: 09/01/17 21:39 Dose: 5 mg Levofloxacin (Levaquin 500 Mg Premixed Ivpb -) 500 mg in 100 mls @ 100 mls/hr IVPB DAILY [facility] PRN Reason: Protocol Last Admin: 09/02/17 10:15 Dose: 100 mls/hr Metronidazole (Flagyl 500mg Premixed Ivpb -) 500 mg in 100 mls @ 100 mls/hr IVPB Q8H-IV [facility] Last Admin: 09/02/17 09:15 Dose: 100 mls/hr Potassium Chloride 10 meq/ (Sodium Chloride) 1,005 mls @ 75 mls/hr IVPB Q13H [facility] Last Admin: 09/02/17 00:23 Dose: Not Given Losartan Potassium (Cozaar -) 100 mg PO DAILY [facility] Last Admin: 09/02/17 10:15 Dose: 100 mg Ondansetron HCl (Zofran Injection) 4 mg IVPUSH Q8H PRN PRN Reason: NAUSEA AND/OR VOMITING Last Admin: 08/30/17 09:53 Dose: 4 mg Oxycodone HCl (Roxicodone -) 5 mg PO Q6H PRN PRN Reason: PAIN SCALE 6-10 Triamterene/HCTZ (Dyazide 25/37.5mg) 1 cap PO DAILY [facility] Last Admin: 09/02/17 10:16 Dose: 1 cap Witch Pam/Glycerin (Tucks Pads -) 1 pad TP TID PRN PRN Reason: Perianal discomfort Last Admin: 09/02/17 10:17 Dose: 1 pad - Objective Vital Signs: Vital Signs Temperature 98.4 F 09/02/17 06:49 Pulse Rate 70 09/02/17 06:49 Respiratory Rate 18 09/02/17 06:49 Blood Pressure 134/57 09/02/17 06:49 O2 Sat by Pulse Oximetry (%) 99 09/01/17 21:00 Constitutional: Yes: Well Nourished, No Distress, Calm Eyes: Yes: Conjunctiva Clear, EOM Intact HENT: Yes: Atraumatic, Normocephalic Neck: Yes: Supple, Trachea Midline Cardiovascular: Yes: Regular Rate and Rhythm, S1, S2 Respiratory: Yes: Regular, CTA Bilaterally Gastrointestinal: Yes: Normal Bowel Sounds, Soft, Mild abdominal tenderness surrounding umbilicus Musculoskeletal: Yes: WNL Edema: LLE: Trace, RLE: Trace Psychiatric: Yes: Alert, Oriented Labs: CBC, BMP 09/02/17 06:30 09/02/17 06:30 INR, PTT INR 1.22 (0.82-1.09) H 08/29/17 09:35 Assessment/Plan Assessment: 1. Terminal Ileitis 2. Microperforation surround terminal ileum 3. 7x5x4 cm abscess in the cul-de-sac Plan: 1. Blood cultures-- NGTD 2. Continue levaquin and flagyl 3. Recommend repeat imaging to assess abscess, likely will occur tomorrow. 4. Bowel rest 5. IVF
--- NOTE | 2017-09-02 19:29 | PN ---
Teaching Attending Note Name of Resident: Jayant Hammond ATTENDING PHYSICIAN STATEMENT I saw and evaluated the patient. I reviewed the resident's note and discussed the case with the resident. I agree with the resident's findings and plan as documented. SUBJECTIVE: OBJECTIVE: ASSESSMENT AND PLAN:
[2017-09-02] MEDS: amLODIPine BESYLATE 5 MG TABLET (FP) PO SCH (22:18)
[2017-09-03 00:06] LABS: ATYPICAL pANCA <1:20 titer (Neg:<1:20); C-ANCA <1:20 titer (Neg:<1:20); P-ANCA <1:20 titer (Neg:<1:20); PROTEINASE-3 ANTIBODY <3.5 U/mL (0.0-3.5)
[2017-09-03] MEDS: POTASSIUM CHLORIDE 10 MEQ in SODIUM CHLORIDE 0.45% 1,000 ML IVPB SCH ×4 (01:05→23:00)
[2017-09-03 08:28] LABS: CHLORIDE 101 mmol/L (98-107); POTASSIUM 3.9 mmol/L (3.5-5.1); SODIUM 137 mmol/L (136-145)
[2017-09-03 08:38] LABS: ALK PHOS 88 U/L (45-117); ANION GAP 9 (8-16); BLOOD UREA NITROGEN 12 mg/dL (7-18); CALCIUM 8.2 mg/dL (8.5-10.1); CO2 27 mmol/L (21-32); CREATININE 0.7 mg/dL (0.55-1.02); GLUCOSE,RANDOM 85 mg/dL (74-106); HEMATOCRIT 32.5 % (32.4-45.2); MCHC 33.9 g/dl (32.0-36.0); MEAN CELL VOLUME 85.8 fl (80-96); MEAN PLT VOLUME 8.7 fl (7.5-11.1); PLATELET COUNT 297 K/MM3 (134-434); RBC 3.79 M/mm3 (3.60-5.2); SGOT/AST 11 U/L (15-37); SGPT/ALT 8 U/L (12-78); TOT PROT 6.5 g/dl (6.4-8.2); WHITE BLOOD COUNT 10.1 K/mm3 (4.0-10.0)
[2017-09-03 09:52] LABS: ACANTHOCYTES 0; ANISOCYTOSIS 0; HELMET CELLS 0; HOWELL-JOLLY BODIES 0; MACROCYTOSIS 0; OVALOCYTE 0; PLATELET ESTIMATE NORMAL; ROULEAU 0; SICKELED CELLS 0; TARGET CELLS 0; TEAR DROP CELLS 0; TOXIC GRANULATION 0
[2017-09-03] MEDS ORDERED: PT OWN MED DRAWER 7, Y5N ONE (10:13)
[2017-09-03] MEDS: TRIAMTERENE AND HCTZ - 37.5 MG/25 MG CAPSULE PO SCH (10:14)
[2017-09-03] MEDS: LOSARTAN POTASSIUM 50 MG TABLET (FP) PO SCH (10:14)
[2017-09-03] MEDS: ONDANSETRON 4 MG/2 ML VIAL IVPUSH PRN (10:14)
--- NOTE | 2017-09-03 12:57 | PN ---
Progress Note, Physician Chief Complaint: Pt lyimg in bed,no abd pain ,pt feels better,afebrile,wbc NL id,gi note appreciated meckel's scan negative AFEBRILE No vomiting,mild nausea X ray abd report noted.No pneumoperitoneum Ct abdomen anfd pelvis done ,report pending - Current Medication List Current Medications: Active Medications Acetaminophen (Tylenol -) 325 mg PO Q6H PRN PRN Reason: PAIN SCALE 6 -10 Amlodipine Besylate (Norvasc -) 5 mg PO HS [facility] Last Admin: 09/02/17 22:18 Dose: 5 mg Levofloxacin (Levaquin 500 Mg Premixed Ivpb -) 500 mg in 100 mls @ 100 mls/hr IVPB DAILY [facility] PRN Reason: Protocol Last Admin: 09/03/17 12:50 Dose: 100 mls/hr Metronidazole (Flagyl 500mg Premixed Ivpb -) 500 mg in 100 mls @ 100 mls/hr IVPB Q8H-IV [facility] Last Admin: 09/03/17 10:14 Dose: 100 mls/hr Potassium Chloride 10 meq/ (Sodium Chloride) 1,005 mls @ 75 mls/hr IVPB Q13H [facility] Last Admin: 09/03/17 06:31 Dose: 75 mls/hr Losartan Potassium (Cozaar -) 100 mg PO DAILY [facility] Last Admin: 09/03/17 10:14 Dose: 100 mg Ondansetron HCl (Zofran Injection) 4 mg IVPUSH Q8H PRN PRN Reason: NAUSEA AND/OR VOMITING Last Admin: 09/03/17 10:14 Dose: 4 mg Triamterene/HCTZ (Dyazide 25/37.5mg) 1 cap PO DAILY [facility] Last Admin: 09/03/17 10:14 Dose: 1 cap Witch Pam/Glycerin (Tucks Pads -) 1 pad TP TID PRN PRN Reason: Perianal discomfort Last Admin: 09/02/17 10:17 Dose: 1 pad - Objective Vital Signs: Vital Signs Temperature 98.4 F 09/03/17 09:00 Pulse Rate 69 09/03/17 09:00 Respiratory Rate 16 09/03/17 09:00 Blood Pressure 145/67 09/03/17 09:00 O2 Sat by Pulse Oximetry (%) 99 09/02/17 21:00 Constitutional: Yes: No Distress Eyes: Yes: Conjunctiva Clear HENT: Yes: Atraumatic, Normocephalic Neck: Yes: Supple, Trachea Midline Cardiovascular: Yes: Regular Rate and Rhythm Respiratory: Yes: Regular, CTA Bilaterally Gastrointestinal: Yes: Normal Bowel Sounds, Soft Musculoskeletal: Yes: WNL Extremities: Yes: WNL Edema: LLE: Trace, RLE: Trace Neurological: Yes: WNL, Alert, Oriented ...Motor Strength: WNL Psychiatric: Yes: WNL, Alert Labs: CBC, BMP 09/03/17 07:00 09/03/17 07:00 INR, PTT INR 1.22 (0.82-1.09) H 08/29/17 09:35 Assessment/Plan Terminal ileitis with ? microperforation and abcess formation HTN Diverticulosis PLAN Continue antibiotics will f/u surgery ,ID and GI rec will f/u ct abdomen and pelvis report
--- NOTE | 2017-09-03 13:48 | PN ---
Progress Note, Physician - Current Medication List Current Medications: Active Medications Acetaminophen (Tylenol -) 325 mg PO Q6H PRN PRN Reason: PAIN SCALE 6 -10 Amlodipine Besylate (Norvasc -) 5 mg PO HS [facility] Last Admin: 09/02/17 22:18 Dose: 5 mg Levofloxacin (Levaquin 500 Mg Premixed Ivpb -) 500 mg in 100 mls @ 100 mls/hr IVPB DAILY [facility] PRN Reason: Protocol Last Admin: 09/03/17 12:50 Dose: 100 mls/hr Metronidazole (Flagyl 500mg Premixed Ivpb -) 500 mg in 100 mls @ 100 mls/hr IVPB Q8H-IV [facility] Last Admin: 09/03/17 10:14 Dose: 100 mls/hr Potassium Chloride 10 meq/ (Sodium Chloride) 1,005 mls @ 75 mls/hr IVPB Q13H [facility] Last Admin: 09/03/17 13:30 Dose: Not Given Losartan Potassium (Cozaar -) 100 mg PO DAILY [facility] Last Admin: 09/03/17 10:14 Dose: 100 mg Ondansetron HCl (Zofran Injection) 4 mg IVPUSH Q8H PRN PRN Reason: NAUSEA AND/OR VOMITING Last Admin: 09/03/17 10:14 Dose: 4 mg Triamterene/HCTZ (Dyazide 25/37.5mg) 1 cap PO DAILY [facility] Last Admin: 09/03/17 10:14 Dose: 1 cap Witch Pam/Glycerin (Tucks Pads -) 1 pad TP TID PRN PRN Reason: Perianal discomfort Last Admin: 09/02/17 10:17 Dose: 1 pad - Objective Vital Signs: Vital Signs Temperature 98.4 F 09/03/17 09:00 Pulse Rate 69 09/03/17 09:00 Respiratory Rate 16 09/03/17 09:00 Blood Pressure 145/67 09/03/17 09:00 O2 Sat by Pulse Oximetry (%) 99 09/02/17 21:00 Labs: CBC, BMP 09/03/17 07:00 09/03/17 07:00 INR, PTT INR 1.22 (0.82-1.09) H 08/29/17 09:35 Problem List - Problems (1) Right lower quadrant abdominal pain Code(s): R10.31 - RIGHT LOWER QUADRANT PAIN (2) Terminal ileitis with abscess Code(s): K50.014 - CROHN'S DISEASE OF SMALL INTESTINE WITH ABSCESS Assessment/Plan Patient is afebrile, denies any abdopminal pain. She has had [address] scan is done , not reported, no intestinsl obstruction. ? plegmon in right lower quadrant. Will wait for report. resume oral feeding. Continue antibiotics.
--- NOTE | 2017-09-03 14:23 | PN ---
Progress Note, Physician - Current Medication List Current Medications: Active Medications Acetaminophen (Tylenol -) 325 mg PO Q6H PRN PRN Reason: PAIN SCALE 6 -10 Amlodipine Besylate (Norvasc -) 5 mg PO HS [facility] Last Admin: 09/02/17 22:18 Dose: 5 mg Levofloxacin (Levaquin 500 Mg Premixed Ivpb -) 500 mg in 100 mls @ 100 mls/hr IVPB DAILY [facility] PRN Reason: Protocol Last Admin: 09/03/17 12:50 Dose: 100 mls/hr Metronidazole (Flagyl 500mg Premixed Ivpb -) 500 mg in 100 mls @ 100 mls/hr IVPB Q8H-IV [facility] Last Admin: 09/03/17 10:14 Dose: 100 mls/hr Potassium Chloride 10 meq/ (Sodium Chloride) 1,005 mls @ 75 mls/hr IVPB Q13H [facility] Last Admin: 09/03/17 13:30 Dose: Not Given Losartan Potassium (Cozaar -) 100 mg PO DAILY [facility] Last Admin: 09/03/17 10:14 Dose: 100 mg Ondansetron HCl (Zofran Injection) 4 mg IVPUSH Q8H PRN PRN Reason: NAUSEA AND/OR VOMITING Last Admin: 09/03/17 10:14 Dose: 4 mg Triamterene/HCTZ (Dyazide 25/37.5mg) 1 cap PO DAILY [facility] Last Admin: 09/03/17 10:14 Dose: 1 cap Witch Pam/Glycerin (Tucks Pads -) 1 pad TP TID PRN PRN Reason: Perianal discomfort Last Admin: 09/02/17 10:17 Dose: 1 pad - Objective Vital Signs: Vital Signs Temperature 98.4 F 09/03/17 09:00 Pulse Rate 69 09/03/17 09:00 Respiratory Rate 16 09/03/17 09:00 Blood Pressure 145/67 09/03/17 09:00 O2 Sat by Pulse Oximetry (%) 99 09/02/17 21:00 Labs: CBC, BMP 09/03/17 07:00 09/03/17 07:00 INR, PTT INR 1.22 (0.82-1.09) H 08/29/17 09:35 Problem List - Problems (1) Right lower quadrant abdominal pain Code(s): R10.31 - RIGHT LOWER QUADRANT PAIN (2) Terminal ileitis with abscess Code(s): K50.014 - CROHN'S DISEASE OF SMALL INTESTINE WITH ABSCESS Assessment/Plan CT scan reviewed with radiologist. She has a large pelvic collection , slightly largerthan in prior CT, with organised wall. There is another smaller collection adjacent to the terminal ilium. The inflammatory changes around the terminal ilium has improved, however there is some inflammatory change in the sigmoid colon. I have discussed with interventional radiology, patient will be scheduled for IR drainage on 09/05/2017.
[2017-09-03] MEDS: amLODIPine BESYLATE 5 MG TABLET (FP) PO SCH (21:29)
[2017-09-04] MEDS: POTASSIUM CHLORIDE 10 MEQ in SODIUM CHLORIDE 0.45% 1,000 ML IVPB SCH ×2 (04:34→15:57)
--- NOTE | 2017-09-04 08:03 | PN ---
Progress Note, Physician Chief Complaint: Pt lyimg in bed,no abd pain ,pt feels better,afebrile,wbc NL rpt Ct scan report noted Large pelvic collection,slightly bigger than previous ct finding with organised wall ,and another collection around terminal ileum surgery rec noted - Current Medication List Current Medications: Active Medications Acetaminophen (Tylenol -) 325 mg PO Q6H PRN PRN Reason: PAIN SCALE 6 -10 Amlodipine Besylate (Norvasc -) 5 mg PO HS [facility] Last Admin: 09/03/17 21:29 Dose: 5 mg Levofloxacin (Levaquin 500 Mg Premixed Ivpb -) 500 mg in 100 mls @ 100 mls/hr IVPB DAILY [facility] PRN Reason: Protocol Last Admin: 09/03/17 12:50 Dose: 100 mls/hr Metronidazole (Flagyl 500mg Premixed Ivpb -) 500 mg in 100 mls @ 100 mls/hr IVPB Q8H-IV [facility] Last Admin: 09/04/17 02:24 Dose: 100 mls/hr Potassium Chloride 10 meq/ (Sodium Chloride) 1,005 mls @ 75 mls/hr IVPB Q13H [facility] Last Admin: 09/04/17 04:34 Dose: Not Given Losartan Potassium (Cozaar -) 100 mg PO DAILY [facility] Last Admin: 09/03/17 10:14 Dose: 100 mg Ondansetron HCl (Zofran Injection) 4 mg IVPUSH Q8H PRN PRN Reason: NAUSEA AND/OR VOMITING Last Admin: 09/03/17 10:14 Dose: 4 mg Triamterene/HCTZ (Dyazide 25/37.5mg) 1 cap PO DAILY [facility] Last Admin: 09/03/17 10:14 Dose: 1 cap Witch Pam/Glycerin (Tucks Pads -) 1 pad TP TID PRN PRN Reason: Perianal discomfort Last Admin: 09/02/17 10:17 Dose: 1 pad - Objective Vital Signs: Vital Signs Temperature 98.1 F 09/04/17 07:52 Pulse Rate 65 09/04/17 07:52 Respiratory Rate 20 09/04/17 07:52 Blood Pressure 136/65 09/04/17 07:52 O2 Sat by Pulse Oximetry (%) 99 09/03/17 21:00 Constitutional: Yes: No Distress Eyes: Yes: Conjunctiva Clear HENT: Yes: Atraumatic Neck: Yes: Supple, Trachea Midline Cardiovascular: Yes: Regular Rate and Rhythm Respiratory: Yes: Regular, CTA Bilaterally Gastrointestinal: Yes: Normal Bowel Sounds, Soft Breast(s): Yes: WNL Musculoskeletal: Yes: WNL Extremities: Yes: WNL Edema: LLE: Trace, RLE: Trace Peripheral Pulses WNL: Yes Integumentary: Yes: WNL Neurological: Yes: WNL, Alert ...Motor Strength: WNL Labs: CBC, BMP 09/03/17 07:00 09/03/17 07:00 INR, PTT INR 1.22 (0.82-1.09) H 08/29/17 09:35 - ....Imaging Cat Scan: Report Reviewed Assessment/Plan Terminal ileitis with collection of fluid around and pelvic abcess HTN Diverticulosis PLAN Continue antibiotics For drainage of abcess by IR
[2017-09-04] MEDS: LOSARTAN POTASSIUM 50 MG TABLET (FP) PO SCH (09:09)
[2017-09-04] MEDS: TRIAMTERENE AND HCTZ - 37.5 MG/25 MG CAPSULE PO SCH (09:09)
--- NOTE | 2017-09-04 12:52 | PN ---
Progress Note, Physician - Current Medication List Current Medications: Active Medications Acetaminophen (Tylenol -) 325 mg PO Q6H PRN PRN Reason: PAIN SCALE 6 -10 Amlodipine Besylate (Norvasc -) 5 mg PO HS [facility] Last Admin: 09/03/17 21:29 Dose: 5 mg Levofloxacin (Levaquin 500 Mg Premixed Ivpb -) 500 mg in 100 mls @ 100 mls/hr IVPB DAILY [facility] PRN Reason: Protocol Last Admin: 09/04/17 10:51 Dose: 100 mls/hr Metronidazole (Flagyl 500mg Premixed Ivpb -) 500 mg in 100 mls @ 100 mls/hr IVPB Q8H-IV [facility] Last Admin: 09/04/17 09:09 Dose: 100 mls/hr Potassium Chloride 10 meq/ (Sodium Chloride) 1,005 mls @ 75 mls/hr IVPB Q13H [facility] Last Admin: 09/04/17 04:34 Dose: Not Given Losartan Potassium (Cozaar -) 100 mg PO DAILY [facility] Last Admin: 09/04/17 09:09 Dose: 100 mg Ondansetron HCl (Zofran Injection) 4 mg IVPUSH Q8H PRN PRN Reason: NAUSEA AND/OR VOMITING Last Admin: 09/03/17 10:14 Dose: 4 mg Triamterene/HCTZ (Dyazide 25/37.5mg) 1 cap PO DAILY [facility] Last Admin: 09/04/17 09:09 Dose: 1 cap Witch Pam/Glycerin (Tucks Pads -) 1 pad TP TID PRN PRN Reason: Perianal discomfort Last Admin: 09/02/17 10:17 Dose: 1 pad - Objective Vital Signs: Vital Signs Temperature 98.0 F 09/04/17 09:00 Pulse Rate 74 09/04/17 09:00 Respiratory Rate 18 09/04/17 09:00 Blood Pressure 151/64 09/04/17 09:00 O2 Sat by Pulse Oximetry (%) 100 09/04/17 09:00 Labs: CBC, BMP 09/03/17 07:00 09/03/17 07:00 INR, PTT INR 1.22 (0.82-1.09) H 08/29/17 09:35 Problem List - Problems (1) Right lower quadrant abdominal pain Code(s): R10.31 - RIGHT LOWER QUADRANT PAIN (2) Terminal ileitis with abscess Code(s): K50.014 - CROHN'S DISEASE OF SMALL INTESTINE WITH ABSCESS Assessment/Plan Patient is afebrile. She has minimum abdominal pain in the right lower quadrant. She has tolerated oral liquids. Abdomen is soft, not tender, no palpable mass. Patient is made aware of drainage of intraabdominal abscess tomorrow, by interventional radiology. CT scan reviewed with radiologist, yesterday. She has a large pelvic collection , slightly larger than in prior CT, with organised wall. There is another smaller collection adjacent to the terminal ilium. The inflammatory changes around the terminal ilium has improved, however there is some inflammatory change in the sigmoid colon. I have discussed with interventional radiology, patient will be scheduled for IR drainage on 09/05/2017.
--- NOTE | 2017-09-04 13:07 | PN ---
Progress Note, Physician History of Present Illness: Awake, alert Supine in bed No complaints of abdominal pain No N/V + pasty BMs Tolerating liquids No F/C - Current Medication List Current Medications: Active Medications Acetaminophen (Tylenol -) 325 mg PO Q6H PRN PRN Reason: PAIN SCALE 6 -10 Amlodipine Besylate (Norvasc -) 5 mg PO HS [facility] Last Admin: 09/03/17 21:29 Dose: 5 mg Levofloxacin (Levaquin 500 Mg Premixed Ivpb -) 500 mg in 100 mls @ 100 mls/hr IVPB DAILY [facility] PRN Reason: Protocol Last Admin: 09/04/17 10:51 Dose: 100 mls/hr Metronidazole (Flagyl 500mg Premixed Ivpb -) 500 mg in 100 mls @ 100 mls/hr IVPB Q8H-IV [facility] Last Admin: 09/04/17 09:09 Dose: 100 mls/hr Potassium Chloride 10 meq/ (Sodium Chloride) 1,005 mls @ 75 mls/hr IVPB Q13H [facility] Last Admin: 09/04/17 04:34 Dose: Not Given Losartan Potassium (Cozaar -) 100 mg PO DAILY [facility] Last Admin: 09/04/17 09:09 Dose: 100 mg Ondansetron HCl (Zofran Injection) 4 mg IVPUSH Q8H PRN PRN Reason: NAUSEA AND/OR VOMITING Last Admin: 09/03/17 10:14 Dose: 4 mg Triamterene/HCTZ (Dyazide 25/37.5mg) 1 cap PO DAILY [facility] Last Admin: 09/04/17 09:09 Dose: 1 cap Witch Pam/Glycerin (Tucks Pads -) 1 pad TP TID PRN PRN Reason: Perianal discomfort Last Admin: 09/02/17 10:17 Dose: 1 pad - Objective Vital Signs: Vital Signs Temperature 98.0 F 09/04/17 09:00 Pulse Rate 74 09/04/17 09:00 Respiratory Rate 18 09/04/17 09:00 Blood Pressure 151/64 09/04/17 09:00 O2 Sat by Pulse Oximetry (%) 100 09/04/17 09:00 Constitutional: Yes: No Distress, Obese Cardiovascular: Yes: Regular Rate and Rhythm, S1, S2 Respiratory: Yes: CTA Bilaterally Gastrointestinal: Yes: Normal Bowel Sounds, Soft, Abdomen, Obese. No: Tenderness Edema: No Labs: CBC, BMP 09/03/17 07:00 09/03/17 07:00 INR, PTT INR 1.22 (0.82-1.09) H 08/29/17 09:35 Assessment/Plan Intraabdominal abscess PCN allergy Leukocytosis- resolved Continue levaquin/ flagyl For IR drainage am
[2017-09-04] MEDS: amLODIPine BESYLATE 5 MG TABLET (FP) PO SCH (21:21)
[2017-09-05] MEDS: POTASSIUM CHLORIDE 10 MEQ in SODIUM CHLORIDE 0.45% 1,000 ML IVPB SCH ×2 (05:56→18:01)
[2017-09-05 07:25] LABS: BASO % 0.8 % (0-2.0); EOS % 1.1 % (0-4.5); HEMATOCRIT 33.3 % (32.4-45.2); HEMOGLOBIN 11.4 GM/dL (10.7-15.3); LYMPH % 19.1 % (8-40); MCH 29.3 pg (25.7-33.7); MCHC 34.2 g/dl (32.0-36.0); MEAN CELL VOLUME 85.6 fl (80-96); MEAN PLT VOLUME 8.2 fl (7.5-11.1); MONO % 8.9 % (3.8-10.2); NEUT % 70.1 % (42.8-82.8); PLATELET COUNT 347 K/MM3 (134-434); RDW 14.1 % (11.6-15.6); WHITE BLOOD COUNT 9.4 K/mm3 (4.0-10.0)
[2017-09-05 07:50] LABS: ALBUMIN 3.1 g/dl (3.4-5.0); CHLORIDE 101 mmol/L (98-107); POTASSIUM 3.8 mmol/L (3.5-5.1); SGOT/AST 11 U/L (15-37); SGPT/ALT 8 U/L (12-78); SODIUM 137 mmol/L (136-145)
[2017-09-05 07:53] LABS: ALK PHOS 80 U/L (45-117); ANION GAP 8 (8-16); BILIRUBIN,TOTAL 0.7 mg/dL (0.2-1.0); BLOOD UREA NITROGEN 6 mg/dL (7-18); CALCIUM 8.4 mg/dL (8.5-10.1); CO2 28 mmol/L (21-32); CREATININE 0.7 mg/dL (0.55-1.02); GLUCOSE,RANDOM 106 mg/dL (74-106); TOT PROT 6.6 g/dl (6.4-8.2)
--- NOTE | 2017-09-05 09:02 | PN ---
Progress Note, Physician History of Present Illness: No acute events overnight. Patient feels well this morning. Denies any fever, chills, abdominal pain. Tolerating liquids. +BM - Current Medication List Current Medications: Active Medications Acetaminophen (Tylenol -) 325 mg PO Q6H PRN PRN Reason: PAIN SCALE 6 -10 Amlodipine Besylate (Norvasc -) 5 mg PO HS [facility] Last Admin: 09/04/17 21:21 Dose: 5 mg Levofloxacin (Levaquin 500 Mg Premixed Ivpb -) 500 mg in 100 mls @ 100 mls/hr IVPB DAILY [facility] PRN Reason: Protocol Last Admin: 09/04/17 10:51 Dose: 100 mls/hr Metronidazole (Flagyl 500mg Premixed Ivpb -) 500 mg in 100 mls @ 100 mls/hr IVPB Q8H-IV [facility] Last Admin: 09/05/17 01:23 Dose: 100 mls/hr Potassium Chloride 10 meq/ (Sodium Chloride) 1,005 mls @ 75 mls/hr IVPB Q13H [facility] Last Admin: 09/05/17 05:56 Dose: Not Given Losartan Potassium (Cozaar -) 100 mg PO DAILY [facility] Last Admin: 09/04/17 09:09 Dose: 100 mg Ondansetron HCl (Zofran Injection) 4 mg IVPUSH Q8H PRN PRN Reason: NAUSEA AND/OR VOMITING Last Admin: 09/03/17 10:14 Dose: 4 mg Triamterene/HCTZ (Dyazide 25/37.5mg) 1 cap PO DAILY [facility] Last Admin: 09/04/17 09:09 Dose: 1 cap Witch Pam/Glycerin (Tucks Pads -) 1 pad TP TID PRN PRN Reason: Perianal discomfort Last Admin: 09/02/17 10:17 Dose: 1 pad - Objective Vital Signs: Vital Signs Temperature 98.3 F 09/05/17 06:15 Pulse Rate 64 09/05/17 06:15 Respiratory Rate 18 09/05/17 06:15 Blood Pressure 134/68 09/05/17 06:15 O2 Sat by Pulse Oximetry (%) 100 09/04/17 21:00 Constitutional: Yes: Well Nourished, No Distress, Calm Eyes: Yes: Conjunctiva Clear, EOM Intact HENT: Yes: Atraumatic, Normocephalic Neck: Yes: Supple, Trachea Midline Cardiovascular: Yes: Regular Rate and Rhythm, S1, S2 Respiratory: Yes: Regular, CTA Bilaterally Gastrointestinal: Yes: Normal Bowel Sounds, Soft, Musculoskeletal: Yes: WNL Edema: LLE: Trace, RLE: Trace Psychiatric: Yes: Alert, Oriented Labs: CBC, BMP 09/05/17 06:15 09/05/17 06:15 INR, PTT INR 1.22 (0.82-1.09) H 08/29/17 09:35 Assessment/Plan Assessment: 1. Terminal Ileitis 2. Microperforation surround terminal ileum 3. 7x5x4 cm abscess in the cul-de-sac Plan: 1. Blood cultures-- NGTD 2. Continue levaquin and flagyl 3. IR drainage today
--- NOTE | 2017-09-05 09:23 | PN ---
Progress Note, Physician Chief Complaint: Pt lyimg in bed,no abd pain ,pt feels better,afebrile,wbc NL rpt Ct scan report noted Large pelvic collection,slightly bigger than previous ct finding with organised wall ,and another collection around terminal ileum For drainage of abcess by IR - Current Medication List Current Medications: Active Medications Acetaminophen (Tylenol -) 325 mg PO Q6H PRN PRN Reason: PAIN SCALE 6 -10 Amlodipine Besylate (Norvasc -) 5 mg PO HS [facility] Last Admin: 09/04/17 21:21 Dose: 5 mg Levofloxacin (Levaquin 500 Mg Premixed Ivpb -) 500 mg in 100 mls @ 100 mls/hr IVPB DAILY [facility] PRN Reason: Protocol Last Admin: 09/04/17 10:51 Dose: 100 mls/hr Metronidazole (Flagyl 500mg Premixed Ivpb -) 500 mg in 100 mls @ 100 mls/hr IVPB Q8H-IV [facility] Last Admin: 09/05/17 01:23 Dose: 100 mls/hr Potassium Chloride 10 meq/ (Sodium Chloride) 1,005 mls @ 75 mls/hr IVPB Q13H [facility] Last Admin: 09/05/17 05:56 Dose: Not Given Losartan Potassium (Cozaar -) 100 mg PO DAILY [facility] Last Admin: 09/04/17 09:09 Dose: 100 mg Ondansetron HCl (Zofran Injection) 4 mg IVPUSH Q8H PRN PRN Reason: NAUSEA AND/OR VOMITING Last Admin: 09/03/17 10:14 Dose: 4 mg Triamterene/HCTZ (Dyazide 25/37.5mg) 1 cap PO DAILY [facility] Last Admin: 09/04/17 09:09 Dose: 1 cap Witch Pam/Glycerin (Tucks Pads -) 1 pad TP TID PRN PRN Reason: Perianal discomfort Last Admin: 09/02/17 10:17 Dose: 1 pad - Objective Vital Signs: Vital Signs Temperature 98.3 F 09/05/17 06:15 Pulse Rate 64 09/05/17 06:15 Respiratory Rate 18 09/05/17 06:15 Blood Pressure 134/68 09/05/17 06:15 O2 Sat by Pulse Oximetry (%) 100 09/04/17 21:00 Constitutional: Yes: No Distress Eyes: Yes: Conjunctiva Clear HENT: Yes: Atraumatic Neck: Yes: Supple Cardiovascular: Yes: Regular Rate and Rhythm Respiratory: Yes: Regular, CTA Bilaterally Gastrointestinal: Yes: Normal Bowel Sounds, Soft Musculoskeletal: Yes: WNL Extremities: Yes: WNL Edema: No Peripheral Pulses WNL: Yes Neurological: Yes: WNL, Alert ...Motor Strength: WNL Psychiatric: Yes: WNL, Alert Labs: CBC, BMP 09/05/17 06:15 09/05/17 06:15 INR, PTT INR 1.22 (0.82-1.09) H 08/29/17 09:35 Assessment/Plan Terminal ileitis with collection of fluid around terminal ileim and pelvic abcess HTN Diverticulosis PLAN Continue antibiotics For drainage of abcess by IR will f/u PT
[2017-09-05] MEDS: LOSARTAN POTASSIUM 50 MG TABLET (FP) PO SCH (10:47)
[2017-09-05] MEDS: TRIAMTERENE AND HCTZ - 37.5 MG/25 MG CAPSULE PO SCH (10:47)
--- NOTE | 2017-09-05 12:31 | PN ---
GI Progress Note Subjective: For Dr. Todd: No acute events Had repeat CT scan of the abdomen/pelvis tuesday that revealed 4cm fluid collection adjacent to terminal ileum and 7.5 x 5.5cm abscess in cul-de-sac. No abdominal pain - Objective Vital Signs: Vital Signs Temperature 98.3 F 09/05/17 06:15 Pulse Rate 64 09/05/17 06:15 Respiratory Rate 18 09/05/17 06:15 Blood Pressure 134/68 09/05/17 06:15 O2 Sat by Pulse Oximetry (%) 100 09/04/17 21:00 Constitutional: Calm Eyes: No: Sclera Icterus Cardiovascular: Yes: Regular Rate and Rhythm Respiratory: Yes: CTA Bilaterally Gastrointestinal Inspection: No: Distention ...Auscultate: Yes: Normoactive Bowel Sounds ...Palpate: Yes: Tenderness (mild/minimal tenderness to deepm palpation in RLQ) . No: Guarding, Tenderness, Rebound ...Percussion: No: Tympanitic Neurological: Yes: Alert, Oriented Labs: CBC, BMP 09/05/17 06:15 09/05/17 06:15 INR, PTT INR 1.22 (0.82-1.09) H 08/29/17 09:35 Problem List - Problems (1) Terminal ileitis with abscess Assessment/Plan: Persistent fluid collections noted For IR drainage today IV abx per ID Surgery following Code(s): K50.014 - CROHN'S DISEASE OF SMALL INTESTINE WITH ABSCESS
[2017-09-05] MEDS ORDERED: MIDAZOLAM HCL 2 MG/2 ML SINGLE DOSE VIAL ONE (13:53)
--- NOTE | 2017-09-05 16:11 | PN ---
Teaching Attending Note Name of Resident: Jayant Hammond ATTENDING PHYSICIAN STATEMENT I saw and evaluated the patient. I reviewed the resident's note and discussed the case with the resident. I agree with the resident's findings and plan as documented. SUBJECTIVE: No c/o abdominal pain No N/V + pasty BM No fever/ chills OBJECTIVE: Abdomen obese, soft, non-tender ASSESSMENT AND PLAN: Intra-abdominal abscess S/P perforated viscus PCN allergy For IR drainage Continue levaquin/ flagyl
--- NOTE | 2017-09-05 18:12 | PN ---
Progress Note, Physician - Current Medication List Current Medications: Active Medications Acetaminophen (Tylenol -) 325 mg PO Q6H PRN PRN Reason: PAIN SCALE 6 -10 Amlodipine Besylate (Norvasc -) 5 mg PO HS [facility] Last Admin: 09/04/17 21:21 Dose: 5 mg Potassium Chloride 10 meq/ (Sodium Chloride) 1,005 mls @ 75 mls/hr IVPB Q13H [facility] Last Admin: 09/05/17 18:01 Dose: Not Given Losartan Potassium (Cozaar -) 100 mg PO DAILY [facility] Last Admin: 09/05/17 10:47 Dose: 100 mg Ondansetron HCl (Zofran Injection) 4 mg IVPUSH Q8H PRN PRN Reason: NAUSEA AND/OR VOMITING Last Admin: 09/03/17 10:14 Dose: 4 mg Triamterene/HCTZ (Dyazide 25/37.5mg) 1 cap PO DAILY [facility] Last Admin: 09/05/17 10:47 Dose: 1 cap Witch Pam/Glycerin (Tucks Pads -) 1 pad TP TID PRN PRN Reason: Perianal discomfort Last Admin: 09/02/17 10:17 Dose: 1 pad - Objective Vital Signs: Vital Signs Temperature 98.3 F 09/05/17 06:15 Pulse Rate 82 09/05/17 14:48 Respiratory Rate 21 09/05/17 14:48 Blood Pressure 140/78 09/05/17 14:48 O2 Sat by Pulse Oximetry (%) 100 09/05/17 14:48 Labs: CBC, BMP 09/05/17 06:15 09/05/17 06:15 INR, PTT INR 1.22 (0.82-1.09) H 08/29/17 09:35 Problem List - Problems (1) Right lower quadrant abdominal pain Code(s): R10.31 - RIGHT LOWER QUADRANT PAIN (2) Terminal ileitis with abscess Code(s): K50.014 - CROHN'S DISEASE OF SMALL INTESTINE WITH ABSCESS Assessment/Plan Surgery: Patient is s/p drainage of abdominal abscess, cain pus drained. Abdomen is soft , notb tender. await cultures. Continue antibiotics. IBD.
[2017-09-05] MEDS: amLODIPine BESYLATE 5 MG TABLET (FP) PO SCH (21:52)
[2017-09-06] MEDS: POTASSIUM CHLORIDE 10 MEQ in SODIUM CHLORIDE 0.45% 1,000 ML IVPB SCH (06:15)
--- NOTE | 2017-09-06 07:31 | PN ---
Progress Note, Physician Chief Complaint: s/p drainage of abcess, JARRETT drain draining pus Pt lyimg in bed,mild pain at the drain site ,pt feels better,afebrile,wbc NL pt is on IV antibiotics - Current Medication List Current Medications: Active Medications Acetaminophen (Tylenol -) 325 mg PO Q6H PRN PRN Reason: PAIN SCALE 6 -10 Amlodipine Besylate (Norvasc -) 5 mg PO HS [facility] Last Admin: 09/05/17 21:52 Dose: 5 mg Potassium Chloride 10 meq/ (Sodium Chloride) 1,005 mls @ 75 mls/hr IVPB Q13H [facility] Last Admin: 09/06/17 06:15 Dose: 75 mls/hr Levofloxacin (Levaquin 500 Mg Premixed Ivpb -) 500 mg in 100 mls @ 100 mls/hr IVPB DAILY [facility] PRN Reason: Protocol Metronidazole (Flagyl 500mg Premixed Ivpb -) 500 mg in 100 mls @ 100 mls/hr IVPB Q8H-IV [facility] Last Admin: 09/06/17 02:12 Dose: 100 mls/hr Losartan Potassium (Cozaar -) 100 mg PO DAILY [facility] Last Admin: 09/05/17 10:47 Dose: 100 mg Ondansetron HCl (Zofran Injection) 4 mg IVPUSH Q8H PRN PRN Reason: NAUSEA AND/OR VOMITING Last Admin: 09/03/17 10:14 Dose: 4 mg Triamterene/HCTZ (Dyazide 25/37.5mg) 1 cap PO DAILY [facility] Last Admin: 09/05/17 10:47 Dose: 1 cap Witch Pam/Glycerin (Tucks Pads -) 1 pad TP TID PRN PRN Reason: Perianal discomfort Last Admin: 09/02/17 10:17 Dose: 1 pad - Objective Vital Signs: Vital Signs Temperature 99.4 F 09/06/17 06:24 Pulse Rate 64 09/06/17 06:24 Respiratory Rate 20 09/06/17 06:24 Blood Pressure 123/58 09/06/17 06:24 O2 Sat by Pulse Oximetry (%) 100 09/05/17 21:00 Constitutional: Yes: No Distress Eyes: Yes: Conjunctiva Clear HENT: Yes: Atraumatic Neck: Yes: Supple Cardiovascular: Yes: Regular Rate and Rhythm Respiratory: Yes: Regular, CTA Bilaterally Gastrointestinal: Yes: Normal Bowel Sounds Musculoskeletal: Yes: WNL Extremities: Yes: WNL Edema: No Peripheral Pulses WNL: Yes Wound/Incision: Yes: Other (drain site dressing clean) Neurological: Yes: WNL, Alert ...Motor Strength: WNL Psychiatric: Yes: WNL Labs: CBC, BMP 09/05/17 06:15 09/05/17 06:15 INR, PTT INR 1.22 (0.82-1.09) H 08/29/17 09:35 Assessment/Plan Terminal ileitis with collection of fluid around terminal ileim and pelvic abcess s/p drainage of abcess HTN Diverticulosis PLAN Continue antibiotics advance diet d/c iv fluid K suppliment
[2017-09-06 08:25] LABS: BASO % 0.8 % (0-2.0); HEMATOCRIT 31.5 % (32.4-45.2); HEMOGLOBIN 10.8 GM/dL (10.7-15.3); LYMPH % 18.4 % (8-40); MCH 29.4 pg (25.7-33.7); MCHC 34.3 g/dl (32.0-36.0); MEAN CELL VOLUME 85.7 fl (80-96); MEAN PLT VOLUME 7.8 fl (7.5-11.1); MONO % 8.4 % (3.8-10.2); NEUT % 71.4 % (42.8-82.8); PLATELET COUNT 323 K/MM3 (134-434); RBC 3.67 M/mm3 (3.60-5.2); RDW 14.2 % (11.6-15.6); WHITE BLOOD COUNT 8.4 K/mm3 (4.0-10.0)
[2017-09-06 08:48] LABS: ALK PHOS 75 U/L (45-117); ANION GAP 9 (8-16); BILIRUBIN,TOTAL 0.5 mg/dL (0.2-1.0); BLOOD UREA NITROGEN 5 mg/dL (7-18); CALCIUM 7.8 mg/dL (8.5-10.1); CHLORIDE 101 mmol/L (98-107); CO2 26 mmol/L (21-32); CREATININE 0.6 mg/dL (0.55-1.02); GLUCOSE,RANDOM 125 mg/dL (74-106); POTASSIUM 3.4 mmol/L (3.5-5.1); SGOT/AST 9 U/L (15-37); SGPT/ALT 12 U/L (12-78); SODIUM 136 mmol/L (136-145); TOT PROT 6.4 g/dl (6.4-8.2)
[2017-09-06] MEDS ORDERED: PT OWN MED DRAWER 7, Y5N ONE (09:36)
[2017-09-06] MEDS: TRIAMTERENE AND HCTZ - 37.5 MG/25 MG CAPSULE PO SCH (09:43)
[2017-09-06] MEDS: LOSARTAN POTASSIUM 50 MG TABLET (FP) PO SCH (09:43)
[2017-09-06] MEDS ORDERED: POTASSIUM CHLORIDE TABS 20 MEQ TABLET.ER (FP) PO ONE (10:00)
--- NOTE | 2017-09-06 10:12 | PN ---
Progress Note, Physician History of Present Illness: No acute events overnight. Patient had IR drainage yesterday with drain in place. Patient feels well this morning. Denies any fever, chills, abdominal pain. Tolerating clear liquids. - Current Medication List Current Medications: Active Medications Acetaminophen (Tylenol -) 325 mg PO Q6H PRN PRN Reason: PAIN SCALE 6 -10 Amlodipine Besylate (Norvasc -) 5 mg PO HS [facility] Last Admin: 09/05/17 21:52 Dose: 5 mg Levofloxacin (Levaquin 500 Mg Premixed Ivpb -) 500 mg in 100 mls @ 100 mls/hr IVPB DAILY [facility] PRN Reason: Protocol Metronidazole (Flagyl 500mg Premixed Ivpb -) 500 mg in 100 mls @ 100 mls/hr IVPB Q8H-IV [facility] Last Admin: 09/06/17 09:43 Dose: 100 mls/hr Losartan Potassium (Cozaar -) 100 mg PO DAILY [facility] Last Admin: 09/06/17 09:43 Dose: 100 mg Ondansetron HCl (Zofran Injection) 4 mg IVPUSH Q8H PRN PRN Reason: NAUSEA AND/OR VOMITING Last Admin: 09/03/17 10:14 Dose: 4 mg Triamterene/HCTZ (Dyazide 25/37.5mg) 1 cap PO DAILY [facility] Last Admin: 09/06/17 09:43 Dose: 1 cap Witch Pam/Glycerin (Tucks Pads -) 1 pad TP TID PRN PRN Reason: Perianal discomfort Last Admin: 09/02/17 10:17 Dose: 1 pad - Objective Vital Signs: Vital Signs Temperature 99.4 F 09/06/17 06:24 Pulse Rate 64 09/06/17 06:24 Respiratory Rate 20 09/06/17 06:24 Blood Pressure 123/58 09/06/17 06:24 O2 Sat by Pulse Oximetry (%) 100 09/05/17 21:00 Constitutional: Yes: Well Nourished, No Distress, Calm Eyes: Yes: Conjunctiva Clear, EOM Intact HENT: Yes: Atraumatic, Normocephalic Neck: Yes: Supple, Trachea Midline Cardiovascular: Yes: Regular Rate and Rhythm, S1, S2 Respiratory: Yes: Regular, CTA Bilaterally Gastrointestinal: Yes: Normal Bowel Sounds, Soft, [address] gluteal region Left. C/d/i Musculoskeletal: Yes: WNL Edema: LLE: Trace, RLE: Trace Psychiatric: Yes: Alert, Oriented Labs: CBC, BMP 09/06/17 08:00 09/06/17 08:00 INR, PTT INR 1.22 (0.82-1.09) H 08/29/17 09:35 Assessment/Plan Assessment: 1. Terminal Ileitis 2. Microperforation surround terminal ileum 3. 7x5x4 cm abscess in the cul-de-sac s/p IR drainage Plan: - Continue levaquin and flagyl
--- NOTE | 2017-09-06 10:32 | PN ---
GI Progress Note Subjective: S/P percutaneous drain of pelvic fluid collection. Pus drained States feeling well. No abdominal pain Diet advanced per surgery - Objective Vital Signs: Vital Signs Temperature 99.4 F 09/06/17 06:24 Pulse Rate 64 09/06/17 06:24 Respiratory Rate 20 09/06/17 06:24 Blood Pressure 123/58 09/06/17 06:24 O2 Sat by Pulse Oximetry (%) 100 09/05/17 21:00 Constitutional: Calm Eyes: No: Sclera Icterus Cardiovascular: Yes: Regular Rate and Rhythm Gastrointestinal Inspection: No: Distention ...Auscultate: Yes: Normoactive Bowel Sounds ...Palpate: No: Tenderness Edema: No (LT. buttock drain: turbid) Neurological: Yes: Alert, Oriented Labs: CBC, BMP 09/06/17 08:00 09/06/17 08:00 Problem List - Problems (1) Terminal ileitis with abscess Assessment/Plan: S/P percutaneous drain of persistent fluid collection Clinically doing well Await aspirate culture Abx per ID Diet has been advanced per Dr. Wade POSEY labs Code(s): K50.014 - CROHN'S DISEASE OF SMALL INTESTINE WITH ABSCESS
--- NOTE | 2017-09-06 16:55 | PN ---
Teaching Attending Note Name of Resident: Jayant Hammond ATTENDING PHYSICIAN STATEMENT I saw and evaluated the patient. I reviewed the resident's note and discussed the case with the resident. I agree with the resident's findings and plan as documented. SUBJECTIVE: Awake, alert Seated in bed No c/o abdominal pain Tolerating diet + BM OBJECTIVE: Non-toxic appearing Afebrile Cor S1S2 Lungs clear Abdo obese, soft, non-tender Clear fluid in JARRETT drainage ASSESSMENT AND PLAN: Intra-abdominal abscess s/p percutaneous drainage Perforated viscus PCN allergy Continue levaquin/ flagyl
[2017-09-06] MEDS: amLODIPine BESYLATE 5 MG TABLET (FP) PO SCH (21:48)
[2017-09-07 08:07] LABS: BASO % 0.4 % (0-2.0); EOS % 1.3 % (0-4.5); HEMATOCRIT 30.8 % (32.4-45.2); HEMOGLOBIN 10.6 GM/dL (10.7-15.3); LYMPH % 20.5 % (8-40); MCH 29.6 pg (25.7-33.7); MCHC 34.4 g/dl (32.0-36.0); MEAN CELL VOLUME 85.9 fl (80-96); MEAN PLT VOLUME 8.3 fl (7.5-11.1); MONO % 7.7 % (3.8-10.2); NEUT % 70.1 % (42.8-82.8); PLATELET COUNT 348 K/MM3 (134-434); RBC 3.59 M/mm3 (3.60-5.2); RDW 14.1 % (11.6-15.6); WHITE BLOOD COUNT 8.2 K/mm3 (4.0-10.0)
[2017-09-07 08:38] LABS: CHLORIDE 99 mmol/L (98-107); POTASSIUM 3.9 mmol/L (3.5-5.1); SODIUM 136 mmol/L (136-145)
[2017-09-07 08:48] LABS: ALK PHOS 74 U/L (45-117); ANION GAP 11 (8-16); BILIRUBIN,TOTAL 0.7 mg/dL (0.2-1.0); BLOOD UREA NITROGEN 5 mg/dL (7-18); CO2 26 mmol/L (21-32); CREATININE 0.6 mg/dL (0.55-1.02); GLUCOSE,RANDOM 109 mg/dL (74-106); SGOT/AST 7 U/L (15-37); SGPT/ALT 8 U/L (12-78); TOT PROT 6.5 g/dl (6.4-8.2)
[2017-09-07] MEDS: TRIAMTERENE AND HCTZ - 37.5 MG/25 MG CAPSULE PO SCH (10:29)
[2017-09-07] MEDS: LOSARTAN POTASSIUM 50 MG TABLET (FP) PO SCH (10:29)
--- NOTE | 2017-09-07 10:47 | PN ---
Progress Note, Physician History of Present Illness: No acute events overnight. Patient feels well this morning. Denies any fever, chills, abdominal pain. Tolerating diet. - Current Medication List Current Medications: Active Medications Acetaminophen (Tylenol -) 325 mg PO Q6H PRN PRN Reason: PAIN SCALE 6 -10 Amlodipine Besylate (Norvasc -) 5 mg PO HS [facility] Last Admin: 09/06/17 21:48 Dose: 5 mg Levofloxacin (Levaquin 500 Mg Premixed Ivpb -) 500 mg in 100 mls @ 100 mls/hr IVPB DAILY [facility] PRN Reason: Protocol Last Admin: 09/07/17 10:28 Dose: 100 mls/hr Metronidazole (Flagyl 500mg Premixed Ivpb -) 500 mg in 100 mls @ 100 mls/hr IVPB Q8H-IV [facility] Last Admin: 09/07/17 10:29 Dose: 100 mls/hr Losartan Potassium (Cozaar -) 100 mg PO DAILY [facility] Last Admin: 09/07/17 10:29 Dose: 100 mg Ondansetron HCl (Zofran Injection) 4 mg IVPUSH Q8H PRN PRN Reason: NAUSEA AND/OR VOMITING Last Admin: 09/03/17 10:14 Dose: 4 mg Triamterene/HCTZ (Dyazide 25/37.5mg) 1 cap PO DAILY [facility] Last Admin: 09/07/17 10:29 Dose: 1 cap Witch Pam/Glycerin (Tucks Pads -) 1 pad TP TID PRN PRN Reason: Perianal discomfort Last Admin: 09/02/17 10:17 Dose: 1 pad - Objective Vital Signs: Vital Signs Temperature 98.3 F 09/07/17 06:41 Pulse Rate 69 09/07/17 06:41 Respiratory Rate 20 09/07/17 06:41 Blood Pressure 114/62 09/07/17 06:41 O2 Sat by Pulse Oximetry (%) 100 09/06/17 21:00 Constitutional: Yes: Well Nourished, No Distress, Calm Eyes: Yes: Conjunctiva Clear, EOM Intact HENT: Yes: Atraumatic, Normocephalic Neck: Yes: Supple, Trachea Midline Cardiovascular: Yes: Regular Rate and Rhythm, S1, S2 Respiratory: Yes: Regular, CTA Bilaterally Gastrointestinal: Yes: Normal Bowel Sounds, Soft, [address] gluteal region Left. C/d/i Musculoskeletal: Yes: WNL Edema: LLE: Trace, RLE: Trace Psychiatric: Yes: Alert, Oriented Labs: CBC, BMP 09/07/17 06:55 09/07/17 06:55 INR, PTT INR 1.22 (0.82-1.09) H 08/29/17 09:35 Assessment/Plan Assessment: 1. Terminal Ileitis 2. Microperforation surround terminal ileum 3. 7x5x4 cm abscess in the cul-de-sac s/p IR drainage Plan: - Continue levaquin and flagyl - F/u cultures, pending organism
--- NOTE | 2017-09-07 11:27 | PN ---
Teaching Attending Note Name of Resident: Jayant Hammond ATTENDING PHYSICIAN STATEMENT I saw and evaluated the patient. I reviewed the resident's note and discussed the case with the resident. I agree with the resident's findings and plan as documented. SUBJECTIVE: no complaints OBJECTIVE: Vital Signs Period Temp Pulse Resp BP Sys/Petit Pulse Ox Last 24 Hr 97.2 F-98.3 F 69-80 16-20 114-134/61-84 100 cor-rrr lungs clear abd soft,nt +JARRETT drain ext no edema CBC, BMP 09/07/17 06:55 09/07/17 06:55 Microbiology 09/05/17 14:45 Abscess Body Fluid Culture - Preliminary Pending Organism 08/30/17 17:45 Blood - Peripheral Venous Blood Culture - Final NO GROWTH AFTER 5 DAYS INCUBATION 08/30/17 16:10 Blood - Peripheral Venous Blood Culture - Final NO GROWTH AFTER 5 DAYS INCUBATION ASSESSMENT AND PLAN: terminal ileitis with abscess, s/p IR drainage 09/05/17 doing well eating no abdominal pain cultures stilll pending continue levaquin/flagyl f/u cultures in am
--- NOTE | 2017-09-07 11:47 | PN ---
Progress Note, Physician Chief Complaint: s/p drainage of abcess, JARRETT drain draining pus Pt lyimg in bed pt tolerated diet ,pt feels better,afebrile,wbc NL pt is on IV antibiotics - Current Medication List Current Medications: Active Medications Acetaminophen (Tylenol -) 325 mg PO Q6H PRN PRN Reason: PAIN SCALE 6 -10 Amlodipine Besylate (Norvasc -) 5 mg PO HS [facility] Last Admin: 09/06/17 21:48 Dose: 5 mg Levofloxacin (Levaquin 500 Mg Premixed Ivpb -) 500 mg in 100 mls @ 100 mls/hr IVPB DAILY [facility] PRN Reason: Protocol Last Admin: 09/07/17 10:28 Dose: 100 mls/hr Metronidazole (Flagyl 500mg Premixed Ivpb -) 500 mg in 100 mls @ 100 mls/hr IVPB Q8H-IV [facility] Last Admin: 09/07/17 10:29 Dose: 100 mls/hr Losartan Potassium (Cozaar -) 100 mg PO DAILY [facility] Last Admin: 09/07/17 10:29 Dose: 100 mg Ondansetron HCl (Zofran Injection) 4 mg IVPUSH Q8H PRN PRN Reason: NAUSEA AND/OR VOMITING Last Admin: 09/03/17 10:14 Dose: 4 mg Triamterene/HCTZ (Dyazide 25/37.5mg) 1 cap PO DAILY [facility] Last Admin: 09/07/17 10:29 Dose: 1 cap Witch Pam/Glycerin (Tucks Pads -) 1 pad TP TID PRN PRN Reason: Perianal discomfort Last Admin: 09/02/17 10:17 Dose: 1 pad - Objective Vital Signs: Vital Signs Temperature 98.3 F 09/07/17 06:41 Pulse Rate 69 09/07/17 06:41 Respiratory Rate 20 09/07/17 06:41 Blood Pressure 114/62 09/07/17 06:41 O2 Sat by Pulse Oximetry (%) 100 09/06/17 21:00 Constitutional: Yes: No Distress Eyes: Yes: Conjunctiva Clear HENT: Yes: Atraumatic Neck: Yes: Supple, Trachea Midline Cardiovascular: Yes: Regular Rate and Rhythm Respiratory: Yes: Regular, CTA Bilaterally Gastrointestinal: Yes: Normal Bowel Sounds, Soft Musculoskeletal: Yes: WNL Wound/Incision: Yes: Other (Jarrett drain draing pus) Neurological: Yes: WNL, Alert ...Motor Strength: WNL Psychiatric: Yes: WNL Labs: CBC, BMP 09/07/17 06:55 09/07/17 06:55 INR, PTT INR 1.22 (0.82-1.09) H 08/29/17 09:35 Assessment/Plan Terminal ileitis with collection of fluid around terminal ileim and pelvic abcess s/p drainage of abcess HTN Diverticulosis PLAN Continue antibiotics Will fluid culture reprt Will f/u PT
--- NOTE | 2017-09-07 12:15 | PN ---
GI Progress Note Subjective: GI NOte: Tolerating solids. No pain. Abscess drained 75cc overnight. No chills. HIAA result pending. - Objective Vital Signs: Vital Signs Temperature 98.3 F 09/07/17 06:41 Pulse Rate 69 09/07/17 06:41 Respiratory Rate 20 09/07/17 06:41 Blood Pressure 114/62 09/07/17 06:41 O2 Sat by Pulse Oximetry (%) 100 09/06/17 21:00 Constitutional: No Distress ...Auscultate: Yes: Normoactive Bowel Sounds ...Palpate: Yes: Soft, Other (nontender) Labs: CBC, BMP 09/07/17 06:55 09/07/17 06:55 INR, PTT INR 1.22 (0.82-1.09) H 08/29/17 09:35 Problem List - Problems (1) Terminal ileitis with abscess Assessment/Plan: 24 hour urine for 5"HIAA results pending. Continue antibiotics. Code(s): K50.014 - CROHN'S DISEASE OF SMALL INTESTINE WITH ABSCESS
[2017-09-07] MEDS: amLODIPine BESYLATE 5 MG TABLET (FP) PO SCH (21:27)
--- NOTE | 2017-09-08 09:30 | PN ---
Progress Note, Physician Chief Complaint: s/p drainage of abcess, KAYA drain draining pus Pt lyimg in bed pt tolerated diet ,pt feels better,afebrile,wbc NL pt is on IV antibiotics body fluid cul pending - Current Medication List Current Medications: Active Medications Acetaminophen (Tylenol -) 325 mg PO Q6H PRN PRN Reason: PAIN SCALE 6 -10 Amlodipine Besylate (Norvasc -) 5 mg PO HS [facility] Last Admin: 09/07/17 21:27 Dose: 5 mg Levofloxacin (Levaquin 500 Mg Premixed Ivpb -) 500 mg in 100 mls @ 100 mls/hr IVPB DAILY [facility] PRN Reason: Protocol Last Admin: 09/07/17 10:28 Dose: 100 mls/hr Metronidazole (Flagyl 500mg Premixed Ivpb -) 500 mg in 100 mls @ 100 mls/hr IVPB Q8H-IV [facility] Last Admin: 09/08/17 02:55 Dose: 100 mls/hr Losartan Potassium (Cozaar -) 100 mg PO DAILY [facility] Last Admin: 09/07/17 10:29 Dose: 100 mg Ondansetron HCl (Zofran Injection) 4 mg IVPUSH Q8H PRN PRN Reason: NAUSEA AND/OR VOMITING Last Admin: 09/03/17 10:14 Dose: 4 mg Triamterene/HCTZ (Dyazide 25/37.5mg) 1 cap PO DAILY [facility] Last Admin: 09/07/17 10:29 Dose: 1 cap Witch Pam/Glycerin (Tucks Pads -) 1 pad TP TID PRN PRN Reason: Perianal discomfort Last Admin: 09/02/17 10:17 Dose: 1 pad - Objective Vital Signs: Vital Signs Temperature 98.2 F 09/08/17 06:35 Pulse Rate 64 09/08/17 06:35 Respiratory Rate 20 09/08/17 06:35 Blood Pressure 114/60 09/08/17 06:35 O2 Sat by Pulse Oximetry (%) 100 09/07/17 21:00 Constitutional: Yes: No Distress Eyes: Yes: Conjunctiva Clear HENT: Yes: Atraumatic Neck: Yes: Supple Cardiovascular: Yes: Regular Rate and Rhythm Respiratory: Yes: Regular, CTA Bilaterally Gastrointestinal: Yes: Normal Bowel Sounds, Soft, Other (kaya drain in place) Musculoskeletal: Yes: WNL Extremities: Yes: WNL Edema: Yes Peripheral Pulses WNL: Yes Neurological: Yes: WNL, Alert ...Motor Strength: WNL Psychiatric: Yes: WNL, Alert Labs: CBC, BMP 09/07/17 06:55 09/07/17 06:55 INR, PTT INR 1.22 (0.82-1.09) H 08/29/17 09:35 Assessment/Plan Terminal ileitis with collection of fluid around terminal ileim and pelvic abcess s/p drainage of abcess HTN Diverticulosis PLAN Continue antibiotics Will fluid culture reprt Will f/u PT
[2017-09-08] MEDS: TRIAMTERENE AND HCTZ - 37.5 MG/25 MG CAPSULE PO SCH (09:31)
[2017-09-08] MEDS: LOSARTAN POTASSIUM 50 MG TABLET (FP) PO SCH (09:31)
--- NOTE | 2017-09-08 09:52 | PN ---
Progress Note, Physician History of Present Illness: No acute events overnight. Patient feels well this morning. Denies any fever, chills, abdominal pain. Tolerating diet. - Current Medication List Current Medications: Active Medications Acetaminophen (Tylenol -) 325 mg PO Q6H PRN PRN Reason: PAIN SCALE 6 -10 Amlodipine Besylate (Norvasc -) 5 mg PO HS [facility] Last Admin: 09/07/17 21:27 Dose: 5 mg Levofloxacin (Levaquin 500 Mg Premixed Ivpb -) 500 mg in 100 mls @ 100 mls/hr IVPB DAILY [facility] PRN Reason: Protocol Last Admin: 09/08/17 09:31 Dose: 100 mls/hr Metronidazole (Flagyl 500mg Premixed Ivpb -) 500 mg in 100 mls @ 100 mls/hr IVPB Q8H-IV [facility] Last Admin: 09/08/17 09:31 Dose: 100 mls/hr Losartan Potassium (Cozaar -) 100 mg PO DAILY [facility] Last Admin: 09/08/17 09:31 Dose: 100 mg Ondansetron HCl (Zofran Injection) 4 mg IVPUSH Q8H PRN PRN Reason: NAUSEA AND/OR VOMITING Last Admin: 09/03/17 10:14 Dose: 4 mg Triamterene/HCTZ (Dyazide 25/37.5mg) 1 cap PO DAILY [facility] Last Admin: 09/08/17 09:31 Dose: 1 cap Witch Pam/Glycerin (Tucks Pads -) 1 pad TP TID PRN PRN Reason: Perianal discomfort Last Admin: 09/02/17 10:17 Dose: 1 pad - Objective Vital Signs: Vital Signs Temperature 98.2 F 09/08/17 06:35 Pulse Rate 64 09/08/17 06:35 Respiratory Rate 20 09/08/17 06:35 Blood Pressure 114/60 09/08/17 06:35 O2 Sat by Pulse Oximetry (%) 100 09/07/17 21:00 Constitutional: Yes: Well Nourished, No Distress, Calm Eyes: Yes: Conjunctiva Clear, EOM Intact HENT: Yes: Atraumatic, Normocephalic Neck: Yes: Supple, Trachea Midline Cardiovascular: Yes: Regular Rate and Rhythm, S1, S2 Respiratory: Yes: Regular, CTA Bilaterally Gastrointestinal: Yes: Normal Bowel Sounds, Soft, [address] gluteal region Left. C/d/i Musculoskeletal: Yes: WNL Edema: LLE: Trace, RLE: Trace Psychiatric: Yes: Alert, Oriented Labs: CBC, BMP 09/07/17 06:55 09/07/17 06:55 INR, PTT INR 1.22 (0.82-1.09) H 08/29/17 09:35 Microbiology 09/05/17 14:45 Body Fluid Culture - Preliminary Abscess Pending Organism Assessment/Plan Assessment: 1. Terminal Ileitis 2. Microperforation surround terminal ileum 3. 7x5x4 cm abscess in the cul-de-sac s/p IR drainage Plan: - Continue levaquin and flagyl - F/u cultures, pending organism - Will need repeat imaging
--- NOTE | 2017-09-08 11:09 | PN ---
GI Progress Note Subjective: No acute events 5cc drainage from pelvic drain overnight No abdominal pain, diarrhea and Ms. Najera had formed BM today. Tolerating regular diet - Objective Vital Signs: Vital Signs Temperature 98.4 F 09/08/17 10:42 Pulse Rate 70 09/08/17 10:42 Respiratory Rate 18 09/08/17 10:42 Blood Pressure 150/75 09/08/17 10:42 O2 Sat by Pulse Oximetry (%) 100 09/07/17 21:00 Constitutional: Calm Eyes: No: Sclera Icterus Cardiovascular: Yes: Regular Rate and Rhythm Respiratory: Yes: CTA Bilaterally Gastrointestinal Inspection: Yes: Scars (pelvic surgical scar). No: Distention ...Auscultate: Yes: Normoactive Bowel Sounds ...Palpate: Yes: Soft. No: Hepatomegaly, Splenomegaly, Tenderness ...Percussion: No: Tympanitic Edema: No (No LE edema) Neurological: Yes: Alert, Oriented Labs: Labs: 09/07/17 06:55 Microbiology 09/05/17 14:45 Abscess Body Fluid Culture - gram's stain: gram + cocci in chains. Pending Organism Problem List - Problems (1) Terminal ileitis with abscess Assessment/Plan: Clinically well with diminished drainage IV Abx per ID. Organism pending ? Timing of repeat imaging. Left message to D/W Dr. Florez Tolerating PO Code(s): K50.014 - CROHN'S DISEASE OF SMALL INTESTINE WITH ABSCESS
--- NOTE | 2017-09-08 12:08 | PN ---
Teaching Attending Note Name of Resident: Jayant Hammond ATTENDING PHYSICIAN STATEMENT I saw and evaluated the patient. I reviewed the resident's note and discussed the case with the resident. I agree with the resident's findings and plan as documented. SUBJECTIVE: Awake, alert No c/o abdominal pain Tolerating diet + BM No fever/ chills Less drainage in JARRETT OBJECTIVE: Non-toxic appearing Cor S1S2 Lungs clear Abdo obese No tenderness elicited small amt serosanguinous fluid in JARRETT drain ASSESSMENT AND PLAN: Perforated viscus/ abdominal collection s/p percutaneous drainage PCN allergy Drainage c/s pending Continue empiric levaquin/ flagyl Repeat imaging next 48hr
--- NOTE | 2017-09-08 16:49 | PN ---
Progress Note, Physician History of Present Illness: Patient is comfortable, She has no abdominal pain. Tolerating feeding. Purulent drainage is reduced and minimal. Culture: Gram negative rods and Srep D strep or enterococcus. ? terminal ileitis , with microperforation and abscess. Continue antibiotics. Endoscopy when improved. Follow up abdominal CT scan, for resolution of abscess cavity in a few days. - Current Medication List Current Medications: Active Medications Acetaminophen (Tylenol -) 325 mg PO Q6H PRN PRN Reason: PAIN SCALE 6 -10 Amlodipine Besylate (Norvasc -) 5 mg PO HS [facility] Last Admin: 09/07/17 21:27 Dose: 5 mg Levofloxacin (Levaquin 500 Mg Premixed Ivpb -) 500 mg in 100 mls @ 100 mls/hr IVPB DAILY [facility] PRN Reason: Protocol Last Admin: 09/08/17 09:31 Dose: 100 mls/hr Metronidazole (Flagyl 500mg Premixed Ivpb -) 500 mg in 100 mls @ 100 mls/hr IVPB Q8H-IV [facility] Last Admin: 09/08/17 09:31 Dose: 100 mls/hr Losartan Potassium (Cozaar -) 100 mg PO DAILY [facility] Last Admin: 09/08/17 09:31 Dose: 100 mg Ondansetron HCl (Zofran Injection) 4 mg IVPUSH Q8H PRN PRN Reason: NAUSEA AND/OR VOMITING Last Admin: 09/03/17 10:14 Dose: 4 mg Triamterene/HCTZ (Dyazide 25/37.5mg) 1 cap PO DAILY [facility] Last Admin: 09/08/17 09:31 Dose: 1 cap Witch Pam/Glycerin (Tucks Pads -) 1 pad TP TID PRN PRN Reason: Perianal discomfort Last Admin: 09/02/17 10:17 Dose: 1 pad - Objective Vital Signs: Vital Signs Temperature 98.2 F 09/08/17 15:15 Pulse Rate 78 09/08/17 15:15 Respiratory Rate 16 09/08/17 15:15 Blood Pressure 130/78 09/08/17 15:15 O2 Sat by Pulse Oximetry (%) 99 09/08/17 09:00 Labs: CBC, BMP 09/07/17 06:55 09/07/17 06:55 INR, PTT INR 1.22 (0.82-1.09) H 02/26/18 09:35 Problem List - Problems (1) Right lower quadrant abdominal pain Code(s): R10.31 - RIGHT LOWER QUADRANT PAIN (2) Terminal ileitis with abscess Code(s): K50.014 - CROHN'S DISEASE OF SMALL INTESTINE WITH ABSCESS
[2017-09-08] MEDS: amLODIPine BESYLATE 5 MG TABLET (FP) PO SCH (21:11)
--- NOTE | 2017-09-09 09:45 | PN ---
Progress Note, Physician Chief Complaint: s/p drainage of abcess, JARRETT drain drainage less now Pt lyimg in bed pt tolerated diet ,pt feels better,afebrile,wbc NL pt is on IV antibiotics body fluid cul gm negative rods and grp D strep - Current Medication List Current Medications: Active Medications Acetaminophen (Tylenol -) 325 mg PO Q6H PRN PRN Reason: PAIN SCALE 6 -10 Amlodipine Besylate (Norvasc -) 5 mg PO HS [facility] Last Admin: 09/08/17 21:11 Dose: 5 mg Levofloxacin (Levaquin 500 Mg Premixed Ivpb -) 500 mg in 100 mls @ 100 mls/hr IVPB DAILY [facility] PRN Reason: Protocol Last Admin: 09/08/17 09:31 Dose: 100 mls/hr Metronidazole (Flagyl 500mg Premixed Ivpb -) 500 mg in 100 mls @ 100 mls/hr IVPB Q8H-IV [facility] Last Admin: 09/09/17 02:30 Dose: 100 mls/hr Losartan Potassium (Cozaar -) 100 mg PO DAILY [facility] Last Admin: 09/08/17 09:31 Dose: 100 mg Ondansetron HCl (Zofran Injection) 4 mg IVPUSH Q8H PRN PRN Reason: NAUSEA AND/OR VOMITING Last Admin: 09/03/17 10:14 Dose: 4 mg Triamterene/HCTZ (Dyazide 25/37.5mg) 1 cap PO DAILY [facility] Last Admin: 09/08/17 09:31 Dose: 1 cap Witch Pam/Glycerin (Tucks Pads -) 1 pad TP TID PRN PRN Reason: Perianal discomfort Last Admin: 09/02/17 10:17 Dose: 1 pad - Objective Vital Signs: Vital Signs Temperature 98.5 F 09/09/17 07:37 Pulse Rate 68 09/09/17 07:37 Respiratory Rate 20 09/09/17 07:37 Blood Pressure 110/64 09/09/17 07:37 O2 Sat by Pulse Oximetry (%) 99 09/08/17 21:00 Constitutional: Yes: No Distress, Poor Hygeine HENT: Yes: Atraumatic Neck: Yes: Supple, Trachea Midline Cardiovascular: Yes: Regular Rate and Rhythm Respiratory: Yes: Regular, CTA Bilaterally Gastrointestinal: Yes: Normal Bowel Sounds, Soft Musculoskeletal: Yes: WNL Extremities: Yes: WNL Edema: Yes Edema: LLE: Trace, RLE: Trace Peripheral Pulses WNL: Yes Wound/Incision: Yes: Other (JARRETT drainage less) Neurological: Yes: WNL ...Motor Strength: WNL Psychiatric: Yes: WNL Labs: CBC, BMP 09/07/17 06:55 09/07/17 06:55 INR, PTT INR 1.22 (0.82-1.09) H 08/29/17 09:35 Assessment/Plan Terminal ileitis with ? microperforation and collection of fluid around terminal ileim and pelvic abcess s/p drainage of abcess HTN Diverticulosis PLAN Continue antibiotics for rpt Ct abdomen and pelvis,and timing will discuss with surgeon
[2017-09-09] MEDS ORDERED: PT OWN MED DRAWER 7, Y5N ONE (10:43)
[2017-09-09] MEDS: TRIAMTERENE AND HCTZ - 37.5 MG/25 MG CAPSULE PO SCH (10:48)
[2017-09-09] MEDS: LOSARTAN POTASSIUM 50 MG TABLET (FP) PO SCH (10:48)
--- NOTE | 2017-09-09 10:56 | PN ---
GI Progress Note Subjective: For Dr. Todd: No acute events No abdominal pain 20cc drainage from pelvic drain overnight. Culture = grp D strep or enterococcus Seen by Dr. Olvera yesterday: advised repeat CT scan to assess for abscess resolution in a few days - Objective Vital Signs: Vital Signs Temperature 98.5 F 09/09/17 07:37 Pulse Rate 68 09/09/17 07:37 Respiratory Rate 20 09/09/17 07:37 Blood Pressure 110/64 09/09/17 07:37 O2 Sat by Pulse Oximetry (%) 99 09/08/17 21:00 Constitutional: Calm Eyes: No: Sclera Icterus Cardiovascular: Yes: Regular Rate and Rhythm Respiratory: Yes: CTA Bilaterally Gastrointestinal Inspection: No: Distention ...Auscultate: Yes: Normoactive Bowel Sounds ...Palpate: No: Tenderness ...Percussion: No: Tympanitic Edema: No (No LE edema) Neurological: Yes: Alert, Oriented Labs: CBC, BMP 09/07/17 06:55 09/07/17 06:55 INR, PTT INR 1.22 (0.82-1.09) H 08/29/17 09:35 Microbiology 09/05/17 14:45 Abscess Body Fluid Culture - Preliminary Lactobacillus Species Gram Negative Federico Group D Strep Or Entero Coccus Laboratory Tests 08/31/17 12:00 Ur Random 5-HIAA 1.3 Urine 5-HIAA 24 Hour 2.3 Problem List - Problems (1) Terminal ileitis with abscess Assessment/Plan: Clinically looks well. Tolerating PO Continuing on IV abx Repeat CT scan in a few days per surgery. ? early nex week. Put a call in to discuss with Dr. Hurd as well Low fiber diet / Na controlled diet Code(s): K50.014 - CROHN'S DISEASE OF SMALL INTESTINE WITH ABSCESS
--- NOTE | 2017-09-09 17:06 | PN ---
Progress Note, Physician History of Present Illness: No acute events overnight. Patient feels well this morning. Denies any fever, chills, abdominal pain. Tolerating diet. - Current Medication List Current Medications: Active Medications Acetaminophen (Tylenol -) 325 mg PO Q6H PRN PRN Reason: PAIN SCALE 6 -10 Amlodipine Besylate (Norvasc -) 5 mg PO HS [facility] Last Admin: 09/08/17 21:11 Dose: 5 mg Levofloxacin (Levaquin 500 Mg Premixed Ivpb -) 500 mg in 100 mls @ 100 mls/hr IVPB DAILY [facility] PRN Reason: Protocol Last Admin: 09/09/17 11:42 Dose: 100 mls/hr Metronidazole (Flagyl 500mg Premixed Ivpb -) 500 mg in 100 mls @ 100 mls/hr IVPB Q8H-IV [facility] Last Admin: 09/09/17 10:48 Dose: 100 mls/hr Losartan Potassium (Cozaar -) 100 mg PO DAILY [facility] Last Admin: 09/09/17 10:48 Dose: 100 mg Ondansetron HCl (Zofran Injection) 4 mg IVPUSH Q8H PRN PRN Reason: NAUSEA AND/OR VOMITING Last Admin: 09/03/17 10:14 Dose: 4 mg Triamterene/HCTZ (Dyazide 25/37.5mg) 1 cap PO DAILY [facility] Last Admin: 09/09/17 10:48 Dose: 1 cap Witch Pam/Glycerin (Tucks Pads -) 1 pad TP TID PRN PRN Reason: Perianal discomfort Last Admin: 09/02/17 10:17 Dose: 1 pad - Objective Vital Signs: Vital Signs Temperature 97.4 F L 09/09/17 16:15 Pulse Rate 69 09/09/17 16:15 Respiratory Rate 20 09/09/17 16:15 Blood Pressure 136/81 09/09/17 16:15 O2 Sat by Pulse Oximetry (%) 99 09/09/17 09:00 Constitutional: Yes: Well Nourished, No Distress, Calm Eyes: Yes: Conjunctiva Clear, EOM Intact HENT: Yes: Atraumatic, Normocephalic Neck: Yes: Supple, Trachea Midline Cardiovascular: Yes: Regular Rate and Rhythm, S1, S2 Respiratory: Yes: Regular, CTA Bilaterally Gastrointestinal: Yes: Normal Bowel Sounds, Soft, [address] gluteal region Left. C/d/i Musculoskeletal: Yes: WNL Edema: LLE: Trace, RLE: Trace Psychiatric: Yes: Alert, Oriented Labs: CBC, BMP 09/07/17 06:55 09/07/17 06:55 INR, PTT INR 1.22 (0.82-1.09) H 08/29/17 09:35 Assessment/Plan Assessment: 1. Terminal Ileitis 2. Microperforation surround terminal ileum 3. 7x5x4 cm abscess in the cul-de-sac s/p IR drainage --Patient is growing VRE Plan: - Continue levaquin/flagyl - Add linezolid - F/u imaging in the next 24-48 hrs
--- NOTE | 2017-09-09 19:09 | PN ---
Teaching Attending Note Name of Resident: Jayant Hammond ATTENDING PHYSICIAN STATEMENT I saw and evaluated the patient. I reviewed the resident's note and discussed the case with the resident. I agree with the resident's findings and plan as documented. SUBJECTIVE: Clinically doing well No c/o abdominal pain Tolerating diet + BM No fever/ chills Afebrile WBC WNL Abdominal c/s mixed, including Pseudomonas sp. and VRE OBJECTIVE: Non toxic appearing. OOB Afebrile Cor S1S2 Lungs clear Abdomen obese, soft non tender ASSESSMENT AND PLAN: S/P percutaneous drainage, abdominal collection S/P perforated viscus PCN allergy + Wound c/s VRE, Pseudomonas Continue levaquin/ flagyl Add linezolid Follow up imaging per surgery/IR
--- NOTE | 2017-09-09 21:29 | PN ---
Progress Note, Physician - Current Medication List Current Medications: Active Medications Acetaminophen (Tylenol -) 325 mg PO Q6H PRN PRN Reason: PAIN SCALE 6 -10 Amlodipine Besylate (Norvasc -) 5 mg PO HS [facility] Last Admin: 09/08/17 21:11 Dose: 5 mg Levofloxacin (Levaquin 500 Mg Premixed Ivpb -) 500 mg in 100 mls @ 100 mls/hr IVPB DAILY [facility] PRN Reason: Protocol Last Admin: 09/09/17 11:42 Dose: 100 mls/hr Metronidazole (Flagyl 500mg Premixed Ivpb -) 500 mg in 100 mls @ 100 mls/hr IVPB Q8H-IV [facility] Last Admin: 09/09/17 17:46 Dose: 100 mls/hr Linezolid (Zyvox 600 Mg Premix Bag (Restricted To Id) -) 600 mg in 300 mls @ 300 mls/hr IVPB BID@0800,2000 [facility] PRN Reason: Protocol Losartan Potassium (Cozaar -) 100 mg PO DAILY [facility] Last Admin: 09/09/17 10:48 Dose: 100 mg Ondansetron HCl (Zofran Injection) 4 mg IVPUSH Q8H PRN PRN Reason: NAUSEA AND/OR VOMITING Last Admin: 09/03/17 10:14 Dose: 4 mg Triamterene/HCTZ (Dyazide 25/37.5mg) 1 cap PO DAILY [facility] Last Admin: 09/09/17 10:48 Dose: 1 cap Witch Pam/Glycerin (Tucks Pads -) 1 pad TP TID PRN PRN Reason: Perianal discomfort Last Admin: 09/02/17 10:17 Dose: 1 pad - Objective Vital Signs: Vital Signs Temperature 98.1 F 09/09/17 21:00 Pulse Rate 83 09/09/17 21:00 Respiratory Rate 20 09/09/17 21:00 Blood Pressure 124/55 09/09/17 21:00 O2 Sat by Pulse Oximetry (%) 99 09/09/17 09:00 Labs: CBC, BMP 09/07/17 06:55 09/07/17 06:55 INR, PTT INR 1.22 (0.82-1.09) H 08/29/17 09:35 Problem List - Problems (1) Right lower quadrant abdominal pain Code(s): R10.31 - RIGHT LOWER QUADRANT PAIN (2) Terminal ileitis with abscess Code(s): K50.014 - CROHN'S DISEASE OF SMALL INTESTINE WITH ABSCESS Assessment/Plan Patient is comfortable, cultures of pus is positive for VRE and pseudomonas. continue antibiotics. Will need follow up abdominal CT scan
[2017-09-09] MEDS: amLODIPine BESYLATE 5 MG TABLET (FP) PO SCH (21:53)
[2017-09-09] MEDS: LINEZOLID 600 MG PREMIX BAG 600 MG/300 ML BAG IVPB SCH (21:53)
[2017-09-10 08:03] LABS: BASO % 0.9 % (0-2.0); EOS % 2.1 % (0-4.5); HEMOGLOBIN 10.9 GM/dL (10.7-15.3); LYMPH % 25.1 % (8-40); MCH 29.4 pg (25.7-33.7); MCHC 34.2 g/dl (32.0-36.0); MEAN CELL VOLUME 86.1 fl (80-96); MEAN PLT VOLUME 8.4 fl (7.5-11.1); NEUT % 62.9 % (42.8-82.8); PLATELET COUNT 351 K/MM3 (134-434); RBC 3.72 M/mm3 (3.60-5.2); RDW 14.2 % (11.6-15.6); WHITE BLOOD COUNT 6.1 K/mm3 (4.0-10.0)
[2017-09-10 08:14] LABS: CHLORIDE 101 mmol/L (98-107); SODIUM 139 mmol/L (136-145)
--- NOTE | 2017-09-10 08:38 | PN ---
Progress Note, Physician Chief Complaint: s/p drainage of abcess, JARRETT drain drainage less now Pt lyimg in bed pt tolerated diet ,pt feels better,afebrile,wbc NL pt is on IV antibiotics body fluid cul growing VRE and pseudomonas Pt is on zyvox as per ID - Current Medication List Current Medications: Active Medications Acetaminophen (Tylenol -) 325 mg PO Q6H PRN PRN Reason: PAIN SCALE 6 -10 Amlodipine Besylate (Norvasc -) 5 mg PO HS [facility] Last Admin: 09/09/17 21:53 Dose: 5 mg Levofloxacin (Levaquin 500 Mg Premixed Ivpb -) 500 mg in 100 mls @ 100 mls/hr IVPB DAILY [facility] PRN Reason: Protocol Last Admin: 09/09/17 11:42 Dose: 100 mls/hr Metronidazole (Flagyl 500mg Premixed Ivpb -) 500 mg in 100 mls @ 100 mls/hr IVPB Q8H-IV [facility] Last Admin: 09/10/17 01:20 Dose: 100 mls/hr Linezolid (Zyvox 600 Mg Premix Bag (Restricted To Id) -) 600 mg in 300 mls @ 300 mls/hr IVPB BID@0800,2000 [facility] PRN Reason: Protocol Last Admin: 09/09/17 21:53 Dose: 300 mls/hr Losartan Potassium (Cozaar -) 100 mg PO DAILY [facility] Last Admin: 09/09/17 10:48 Dose: 100 mg Ondansetron HCl (Zofran Injection) 4 mg IVPUSH Q8H PRN PRN Reason: NAUSEA AND/OR VOMITING Last Admin: 09/03/17 10:14 Dose: 4 mg Triamterene/HCTZ (Dyazide 25/37.5mg) 1 cap PO DAILY [facility] Last Admin: 09/09/17 10:48 Dose: 1 cap Witch Pam/Glycerin (Tucks Pads -) 1 pad TP TID PRN PRN Reason: Perianal discomfort Last Admin: 09/02/17 10:17 Dose: 1 pad - Objective Vital Signs: Vital Signs Temperature 98.3 F 09/10/17 05:51 Pulse Rate 64 09/10/17 05:51 Respiratory Rate 20 09/10/17 05:51 Blood Pressure 140/74 09/10/17 05:51 O2 Sat by Pulse Oximetry (%) 100 09/09/17 21:00 Constitutional: Yes: No Distress Eyes: Yes: Conjunctiva Clear HENT: Yes: Atraumatic, Normocephalic Neck: Yes: Supple, Trachea Midline Cardiovascular: Yes: Regular Rate and Rhythm Respiratory: Yes: Regular, CTA Bilaterally Gastrointestinal: Yes: Normal Bowel Sounds, Soft Musculoskeletal: Yes: WNL Extremities: Yes: WNL Edema: Yes Edema: LLE: Trace, RLE: Trace Peripheral Pulses WNL: Yes Wound/Incision: Yes: Other (Jarrett drainage less) Neurological: Yes: WNL ...Motor Strength: WNL Psychiatric: Yes: WNL Labs: CBC, BMP 09/10/17 06:00 INR, PTT INR 1.22 (0.82-1.09) H 08/29/17 09:35 Assessment/Plan Terminal ileitis with ? microperforation and collection of fluid around terminal ileim and pelvic abcess s/p drainage of abcess wound cul shoews VRE and pseudomonas HTN Diverticulosis PLAN Continue antibiotics for rpt Ct abdomen and pelvis,and timing will discuss with surgeon
[2017-09-10 08:47] LABS: ALK PHOS 71 U/L (45-117); ANION GAP 13 (8-16); BILIRUBIN,TOTAL 0.5 mg/dL (0.2-1.0); BLOOD UREA NITROGEN 8 mg/dL (7-18); CALCIUM 8.9 mg/dL (8.5-10.1); CO2 25 mmol/L (21-32); CREATININE 0.6 mg/dL (0.55-1.02); GLUCOSE,RANDOM 119 mg/dL (74-106); SGOT/AST 10 U/L (15-37); SGPT/ALT 9 U/L (12-78); TOT PROT 6.8 g/dl (6.4-8.2)
[2017-09-10] MEDS ORDERED: PT OWN MED DRAWER 7, Y5N ONE (09:15)
[2017-09-10] MEDS: LINEZOLID 600 MG PREMIX BAG 600 MG/300 ML BAG IVPB SCH ×2 (09:22→20:46)
[2017-09-10] MEDS: LOSARTAN POTASSIUM 50 MG TABLET (FP) PO SCH (09:22)
[2017-09-10] MEDS: TRIAMTERENE AND HCTZ - 37.5 MG/25 MG CAPSULE PO SCH (09:22)
--- NOTE | 2017-09-10 13:48 | PN ---
Progress Note, Physician - Current Medication List Current Medications: Active Medications Acetaminophen (Tylenol -) 325 mg PO Q6H PRN PRN Reason: PAIN SCALE 6 -10 Amlodipine Besylate (Norvasc -) 5 mg PO HS [facility] Last Admin: 09/09/17 21:53 Dose: 5 mg Levofloxacin (Levaquin 500 Mg Premixed Ivpb -) 500 mg in 100 mls @ 100 mls/hr IVPB DAILY [facility] PRN Reason: Protocol Last Admin: 09/10/17 12:39 Dose: 100 mls/hr Metronidazole (Flagyl 500mg Premixed Ivpb -) 500 mg in 100 mls @ 100 mls/hr IVPB Q8H-IV [facility] Last Admin: 09/10/17 10:48 Dose: 100 mls/hr Linezolid (Zyvox 600 Mg Premix Bag (Restricted To Id) -) 600 mg in 300 mls @ 300 mls/hr IVPB BID@0800,2000 [facility] PRN Reason: Protocol Last Admin: 09/10/17 09:22 Dose: 300 mls/hr Losartan Potassium (Cozaar -) 100 mg PO DAILY [facility] Last Admin: 09/10/17 09:22 Dose: 100 mg Ondansetron HCl (Zofran Injection) 4 mg IVPUSH Q8H PRN PRN Reason: NAUSEA AND/OR VOMITING Last Admin: 09/03/17 10:14 Dose: 4 mg Triamterene/HCTZ (Dyazide 25/37.5mg) 1 cap PO DAILY [facility] Last Admin: 09/10/17 09:22 Dose: 1 cap Witch Pam/Glycerin (Tucks Pads -) 1 pad TP TID PRN PRN Reason: Perianal discomfort Last Admin: 09/02/17 10:17 Dose: 1 pad - Objective Vital Signs: Vital Signs Temperature 98.3 F 09/10/17 05:51 Pulse Rate 64 09/10/17 05:51 Respiratory Rate 20 09/10/17 05:51 Blood Pressure 140/74 09/10/17 05:51 O2 Sat by Pulse Oximetry (%) 100 09/09/17 21:00 Labs: CBC, BMP 09/10/17 06:00 09/10/17 06:00 INR, PTT INR 1.22 (0.82-1.09) H 08/29/17 09:35 Problem List - Problems (1) Right lower quadrant abdominal pain Code(s): R10.31 - RIGHT LOWER QUADRANT PAIN (2) Terminal ileitis with abscess Code(s): K50.014 - CROHN'S DISEASE OF SMALL INTESTINE WITH ABSCESS Assessment/Plan Surgery: Patient is comfortable, has no abdominal pain. Purulent drainage has diminished, drainage is serous, clear and minimal. Continue antibiotics. Follow up abdominal CT scan. Antibiotics as per ID.
[2017-09-10] MEDS: amLODIPine BESYLATE 5 MG TABLET (FP) PO SCH (22:02)
[2017-09-11] MEDS: LINEZOLID 600 MG PREMIX BAG 600 MG/300 ML BAG IVPB SCH ×2 (09:01→20:37)
[2017-09-11] MEDS ORDERED: PT OWN MED DRAWER 7, Y5N ONE (10:51)
[2017-09-11] MEDS: LOSARTAN POTASSIUM 50 MG TABLET (FP) PO SCH (11:02)
[2017-09-11] MEDS: TRIAMTERENE AND HCTZ - 37.5 MG/25 MG CAPSULE PO SCH (11:02)
--- NOTE | 2017-09-11 13:04 | PN ---
Progress Note, Physician Chief Complaint: s/p drainage of abcess, JARRETT drain drainage less now Pt lyimg in bed pt tolerated diet ,pt feels better,afebrile,wbc NL pt is on IV antibiotics body fluid cul growing VRE and pseudomonas Pt is on zyvox as per Id Bilateral pedal oedema present - Current Medication List Current Medications: Active Medications Acetaminophen (Tylenol -) 325 mg PO Q6H PRN PRN Reason: PAIN SCALE 6 -10 Amlodipine Besylate (Norvasc -) 5 mg PO HS [facility] Last Admin: 09/10/17 22:02 Dose: 5 mg Levofloxacin (Levaquin 500 Mg Premixed Ivpb -) 500 mg in 100 mls @ 100 mls/hr IVPB DAILY [facility] PRN Reason: Protocol Last Admin: 09/11/17 11:01 Dose: 100 mls/hr Metronidazole (Flagyl 500mg Premixed Ivpb -) 500 mg in 100 mls @ 100 mls/hr IVPB Q8H-IV [facility] Last Admin: 09/11/17 10:01 Dose: 100 mls/hr Linezolid (Zyvox 600 Mg Premix Bag (Restricted To Id) -) 600 mg in 300 mls @ 300 mls/hr IVPB BID@0800,2000 [facility] PRN Reason: Protocol Last Admin: 09/11/17 09:01 Dose: 300 mls/hr Losartan Potassium (Cozaar -) 100 mg PO DAILY [facility] Last Admin: 09/11/17 11:02 Dose: 100 mg Ondansetron HCl (Zofran Injection) 4 mg IVPUSH [facility] PRN PRN Reason: NAUSEA AND/OR VOMITING Last Admin: 09/03/17 10:14 Dose: 4 mg Triamterene/HCTZ (Dyazide 25/37.5mg) 1 cap PO DAILY [facility] Last Admin: 09/11/17 11:02 Dose: 1 cap Witch Pam/Glycerin (Tucks Pads -) 1 pad TP TID PRN PRN Reason: Perianal discomfort Last Admin: 09/02/17 10:17 Dose: 1 pad - Objective Vital Signs: Vital Signs Temperature 97.6 F 09/10/17 22:00 Pulse Rate 62 09/10/17 22:00 Respiratory Rate 20 09/10/17 22:00 Blood Pressure 136/56 09/10/17 22:00 O2 Sat by Pulse Oximetry (%) 99 09/10/17 21:00 Constitutional: Yes: No Distress Eyes: Yes: Conjunctiva Clear HENT: Yes: Atraumatic, Normocephalic Neck: Yes: Supple, Trachea Midline Cardiovascular: Yes: Regular Rate and Rhythm Respiratory: Yes: Regular, CTA Bilaterally Gastrointestinal: Yes: Normal Bowel Sounds, Soft Breast(s): Yes: WNL Musculoskeletal: Yes: WNL Extremities: Yes: WNL Edema: Yes Edema: LLE: Trace, RLE: Trace Neurological: Yes: WNL ...Motor Strength: WNL Psychiatric: Yes: WNL Labs: CBC, BMP 09/10/17 06:00 09/10/17 06:00 INR, PTT INR 1.22 (0.82-1.09) H 08/29/17 09:35 Assessment/Plan Terminal ileitis with ? microperforation and collection of fluid around terminal ileim and pelvic abcess s/p drainage of abcess wound cul shoews VRE and pseudomonas HTN Diverticulosis PLAN Continue antibiotics for rpt Ct abdomen and pelvis,and timing will discuss with surgeon venous doppler both MARTIN
[2017-09-11] MEDS: amLODIPine BESYLATE 5 MG TABLET (FP) PO SCH (21:15)
[2017-09-12] MEDS: LINEZOLID 600 MG PREMIX BAG 600 MG/300 ML BAG IVPB SCH ×2 (08:08→20:32)
[2017-09-12 08:22] LABS: BASO % 0.9 % (0-2.0); EOS % 2.6 % (0-4.5); HEMATOCRIT 32.4 % (32.4-45.2); HEMOGLOBIN 11.1 GM/dL (10.7-15.3); LYMPH % 29.8 % (8-40); MCH 29.4 pg (25.7-33.7); MCHC 34.3 g/dl (32.0-36.0); MEAN CELL VOLUME 85.6 fl (80-96); MEAN PLT VOLUME 8.4 fl (7.5-11.1); MONO % 9.1 % (3.8-10.2); NEUT % 57.6 % (42.8-82.8); PLATELET COUNT 351 K/MM3 (134-434); RBC 3.79 M/mm3 (3.60-5.2); RDW 14.5 % (11.6-15.6); WHITE BLOOD COUNT 5.2 K/mm3 (4.0-10.0)
[2017-09-12 08:24] LABS: ALK PHOS 72 U/L (45-117); ANION GAP 11 (8-16); BILIRUBIN,TOTAL 0.5 mg/dL (0.2-1.0); BLOOD UREA NITROGEN 6 mg/dL (7-18); CALCIUM 8.8 mg/dL (8.5-10.1); CHLORIDE 102 mmol/L (98-107); CO2 26 mmol/L (21-32); CREATININE 0.7 mg/dL (0.55-1.02); GLUCOSE,RANDOM 104 mg/dL (74-106); POTASSIUM 4.3 mmol/L (3.5-5.1); SGOT/AST 9 U/L (15-37); SGPT/ALT 9 U/L (12-78); SODIUM 139 mmol/L (136-145); TOT PROT 6.6 g/dl (6.4-8.2)
[2017-09-12] MEDS ORDERED: PT OWN MED DRAWER 7, Y5N ONE (09:28)
[2017-09-12] MEDS: LOSARTAN POTASSIUM 50 MG TABLET (FP) PO SCH (09:36)
[2017-09-12] MEDS: TRIAMTERENE AND HCTZ - 37.5 MG/25 MG CAPSULE PO SCH (09:37)
--- NOTE | 2017-09-12 09:47 | PN ---
Progress Note, Physician History of Present Illness: Awake, alert Seated in bed No complaints of abdominal pain No N/V + soft BMs Tolerating regular diet No F/C WBC WNL - Current Medication List Current Medications: Active Medications Acetaminophen (Tylenol -) 325 mg PO Q6H PRN PRN Reason: PAIN SCALE 6 -10 Amlodipine Besylate (Norvasc -) 5 mg PO HS [facility] Last Admin: 09/11/17 21:15 Dose: 5 mg Levofloxacin (Levaquin 500 Mg Premixed Ivpb -) 500 mg in 100 mls @ 100 mls/hr IVPB DAILY [facility] PRN Reason: Protocol Last Admin: 09/11/17 11:01 Dose: 100 mls/hr Metronidazole (Flagyl 500mg Premixed Ivpb -) 500 mg in 100 mls @ 100 mls/hr IVPB Q8H-IV [facility] Last Admin: 09/12/17 03:14 Dose: 100 mls/hr Linezolid (Zyvox 600 Mg Premix Bag (Restricted To Id) -) 600 mg in 300 mls @ 300 mls/hr IVPB BID@0800,2000 [facility] PRN Reason: Protocol Last Admin: 09/12/17 08:08 Dose: 300 mls/hr Losartan Potassium (Cozaar -) 100 mg PO DAILY [facility] Last Admin: 09/12/17 09:36 Dose: 100 mg Ondansetron HCl (Zofran Injection) 4 mg IVPUSH [facility] PRN PRN Reason: NAUSEA AND/OR VOMITING Last Admin: 09/03/17 10:14 Dose: 4 mg Triamterene/HCTZ (Dyazide 25/37.5mg) 1 cap PO DAILY [facility] Last Admin: 09/12/17 09:37 Dose: 1 cap Witch Pam/Glycerin (Tucks Pads -) 1 pad TP TID PRN PRN Reason: Perianal discomfort Last Admin: 09/02/17 10:17 Dose: 1 pad - Objective Vital Signs: Vital Signs Temperature 98.2 F 09/12/17 06:00 Pulse Rate 61 09/12/17 06:00 Respiratory Rate 18 09/12/17 06:00 Blood Pressure 124/56 09/12/17 06:00 O2 Sat by Pulse Oximetry (%) 100 09/11/17 21:00 Constitutional: Yes: No Distress, Obese Eyes: Yes: Conjunctiva Clear Cardiovascular: Yes: Regular Rate and Rhythm, S1, S2 Respiratory: Yes: CTA Bilaterally Gastrointestinal: Yes: Normal Bowel Sounds, Soft, Abdomen, Obese. No: Tenderness Edema: Yes Edema: LLE: 2+, RLE: 2+ Labs: CBC, BMP 09/12/17 07:35 09/12/17 07:35 INR, PTT INR 1.22 (0.82-1.09) H 08/29/17 09:35 Assessment/Plan Intraabdominal abscess S/P perforated viscus PCN allergy Leukocytosis- resolved Continue levaquin/ flagyl/ linezolid Follow up imaging per IR/ surgery
--- NOTE | 2017-09-12 09:55 | PN ---
Progress Note, Physician Chief Complaint: s/p drainage of abcess, JARRETT drain draining clear discharge Venous doppler negative for dvt Pt lyimg in bed pt tolerated diet ,pt feels better,afebrile,wbc NL pt is on IV antibiotics - Current Medication List Current Medications: Active Medications Acetaminophen (Tylenol -) 325 mg PO Q6H PRN PRN Reason: PAIN SCALE 6 -10 Amlodipine Besylate (Norvasc -) 5 mg PO HS [facility] Last Admin: 09/11/17 21:15 Dose: 5 mg Levofloxacin (Levaquin 500 Mg Premixed Ivpb -) 500 mg in 100 mls @ 100 mls/hr IVPB DAILY [facility] PRN Reason: Protocol Last Admin: 09/11/17 11:01 Dose: 100 mls/hr Metronidazole (Flagyl 500mg Premixed Ivpb -) 500 mg in 100 mls @ 100 mls/hr IVPB Q8H-IV [facility] Last Admin: 09/12/17 03:14 Dose: 100 mls/hr Linezolid (Zyvox 600 Mg Premix Bag (Restricted To Id) -) 600 mg in 300 mls @ 300 mls/hr IVPB BID@0800,2000 [facility] PRN Reason: Protocol Last Admin: 09/12/17 08:08 Dose: 300 mls/hr Losartan Potassium (Cozaar -) 100 mg PO DAILY [facility] Last Admin: 09/12/17 09:36 Dose: 100 mg Ondansetron HCl (Zofran Injection) 4 mg IVPUSH [facility] PRN PRN Reason: NAUSEA AND/OR VOMITING Last Admin: 09/03/17 10:14 Dose: 4 mg Triamterene/HCTZ (Dyazide 25/37.5mg) 1 cap PO DAILY [facility] Last Admin: 09/12/17 09:37 Dose: 1 cap Witch Pam/Glycerin (Tucks Pads -) 1 pad TP TID PRN PRN Reason: Perianal discomfort Last Admin: 09/02/17 10:17 Dose: 1 pad - Objective Vital Signs: Vital Signs Temperature 98.2 F 09/12/17 06:00 Pulse Rate 61 09/12/17 06:00 Respiratory Rate 18 09/12/17 06:00 Blood Pressure 124/56 09/12/17 06:00 O2 Sat by Pulse Oximetry (%) 100 09/11/17 21:00 Constitutional: Yes: No Distress Eyes: Yes: Conjunctiva Clear HENT: Yes: Atraumatic Neck: Yes: Supple, Trachea Midline Cardiovascular: Yes: Regular Rate and Rhythm Respiratory: Yes: Regular, CTA Bilaterally Gastrointestinal: Yes: Normal Bowel Sounds, Soft Musculoskeletal: Yes: WNL Extremities: Yes: WNL Edema: Yes Edema: LLE: Trace, RLE: Trace Peripheral Pulses WNL: Yes Neurological: Yes: WNL, Alert ...Motor Strength: WNL Psychiatric: Yes: WNL Labs: CBC, BMP 09/12/17 07:35 09/12/17 07:35 INR, PTT INR 1.22 (0.82-1.09) H 08/29/17 09:35 Assessment/Plan Terminal ileitis with collection of fluid around terminal ileim and pelvic abcess s/p drainage of abcess HTN Diverticulosis PLAN Continue antibiotics for f/u CT abdomen and pelvis
--- NOTE | 2017-09-12 12:20 | PN ---
Progress Note, Physician - Current Medication List Current Medications: Active Medications Acetaminophen (Tylenol -) 325 mg PO Q6H PRN PRN Reason: PAIN SCALE 6 -10 Amlodipine Besylate (Norvasc -) 5 mg PO HS [facility] Last Admin: 09/11/17 21:15 Dose: 5 mg Levofloxacin (Levaquin 500 Mg Premixed Ivpb -) 500 mg in 100 mls @ 100 mls/hr IVPB DAILY [facility] PRN Reason: Protocol Last Admin: 09/12/17 11:15 Dose: 100 mls/hr Metronidazole (Flagyl 500mg Premixed Ivpb -) 500 mg in 100 mls @ 100 mls/hr IVPB Q8H-IV [facility] Last Admin: 09/12/17 10:15 Dose: 100 mls/hr Linezolid (Zyvox 600 Mg Premix Bag (Restricted To Id) -) 600 mg in 300 mls @ 300 mls/hr IVPB BID@0800,2000 [facility] PRN Reason: Protocol Last Admin: 09/12/17 08:08 Dose: 300 mls/hr Losartan Potassium (Cozaar -) 100 mg PO DAILY [facility] Last Admin: 09/12/17 09:36 Dose: 100 mg Ondansetron HCl (Zofran Injection) 4 mg IVPUSH [facility] PRN PRN Reason: NAUSEA AND/OR VOMITING Last Admin: 09/03/17 10:14 Dose: 4 mg Triamterene/HCTZ (Dyazide 25/37.5mg) 1 cap PO DAILY [facility] Last Admin: 09/12/17 09:37 Dose: 1 cap Witch Pam/Glycerin (Tucks Pads -) 1 pad TP TID PRN PRN Reason: Perianal discomfort Last Admin: 09/02/17 10:17 Dose: 1 pad - Objective Vital Signs: Vital Signs Temperature 98.1 F 09/12/17 08:15 Pulse Rate 72 09/12/17 08:15 Respiratory Rate 18 09/12/17 08:15 Blood Pressure 128/76 09/12/17 08:15 O2 Sat by Pulse Oximetry (%) 100 09/11/17 21:00 Labs: CBC, BMP 09/12/17 07:35 09/12/17 07:35 INR, PTT INR 1.22 (0.82-1.09) H 08/29/17 09:35 Problem List - Problems (1) Right lower quadrant abdominal pain Code(s): R10.31 - RIGHT LOWER QUADRANT PAIN (2) Terminal ileitis with abscess Code(s): K50.014 - CROHN'S DISEASE OF SMALL INTESTINE WITH ABSCESS Assessment/Plan Patient has no abdominal pain. She is afebrile. She is having normal bowel movements. She is on 3 antibiotics. there is minimal clear drainage from the drain. will do follow up abdominal CT scan, to assess resolution of abscess cavity.
[2017-09-12] MEDS: amLODIPine BESYLATE 5 MG TABLET (FP) PO SCH (21:20)
[2017-09-13] MEDS ORDERED: PT OWN MED DRAWER 7, Y5N ONE ×2 (07:42→09:49)
[2017-09-13] MEDS: LINEZOLID 600 MG PREMIX BAG 600 MG/300 ML BAG IVPB SCH ×2 (07:49→20:45)
[2017-09-13] MEDS: LOSARTAN POTASSIUM 50 MG TABLET (FP) PO SCH (09:52)
[2017-09-13] MEDS: TRIAMTERENE AND HCTZ - 37.5 MG/25 MG CAPSULE PO SCH (09:54)
--- NOTE | 2017-09-13 10:16 | PN ---
Progress Note, Physician Chief Complaint: s/p drainage of abcess, JARRETT drain draining clear discharge Venous doppler negative for dvt Pt lyimg in bed pt tolerated diet ,pt feels better,afebrile,wbc NL pt is on IV antibiotics Awaiting CT of pelvis - Current Medication List Current Medications: Active Medications Acetaminophen (Tylenol -) 325 mg PO Q6H PRN PRN Reason: PAIN SCALE 6 -10 Amlodipine Besylate (Norvasc -) 5 mg PO HS [facility] Last Admin: 09/12/17 21:20 Dose: 5 mg Levofloxacin (Levaquin 500 Mg Premixed Ivpb -) 500 mg in 100 mls @ 100 mls/hr IVPB DAILY [facility] PRN Reason: Protocol Last Admin: 09/12/17 11:15 Dose: 100 mls/hr Metronidazole (Flagyl 500mg Premixed Ivpb -) 500 mg in 100 mls @ 100 mls/hr IVPB Q8H-IV [facility] Last Admin: 09/13/17 01:17 Dose: 100 mls/hr Linezolid (Zyvox 600 Mg Premix Bag (Restricted To Id) -) 600 mg in 300 mls @ 300 mls/hr IVPB BID@0800,2000 [facility] PRN Reason: Protocol Last Admin: 09/13/17 07:49 Dose: 300 mls/hr Losartan Potassium (Cozaar -) 100 mg PO DAILY [facility] Last Admin: 09/13/17 09:52 Dose: 100 mg Ondansetron HCl (Zofran Injection) 4 mg IVPUSH Q8H PRN PRN Reason: NAUSEA AND/OR VOMITING Last Admin: 09/03/17 10:14 Dose: 4 mg Triamterene/HCTZ (Dyazide 25/37.5mg) 1 cap PO DAILY [facility] Last Admin: 09/13/17 09:54 Dose: 1 cap Witch Pam/Glycerin (Tucks Pads -) 1 pad TP TID PRN PRN Reason: Perianal discomfort Last Admin: 09/02/17 10:17 Dose: 1 pad - Objective Vital Signs: Vital Signs Temperature 98.1 F 09/13/17 07:00 Pulse Rate 65 09/13/17 07:00 Respiratory Rate 20 09/13/17 07:00 Blood Pressure 131/50 09/13/17 07:00 O2 Sat by Pulse Oximetry (%) 100 09/12/17 21:00 Constitutional: Yes: No Distress Eyes: Yes: Conjunctiva Clear HENT: Yes: Atraumatic Neck: Yes: Supple, Trachea Midline Cardiovascular: Yes: Regular Rate and Rhythm Respiratory: Yes: Regular, CTA Bilaterally Gastrointestinal: Yes: Normal Bowel Sounds, Soft Musculoskeletal: Yes: WNL Extremities: Yes: WNL Edema: Yes Edema: LLE: Trace, RLE: Trace Peripheral Pulses WNL: No Integumentary: Yes: WNL Neurological: Yes: WNL ...Motor Strength: WNL Psychiatric: Yes: WNL Labs: CBC, BMP 09/12/17 07:35 09/12/17 07:35 INR, PTT INR 1.22 (0.82-1.09) H 08/29/17 09:35 Assessment/Plan Terminal ileitis with collection of fluid around terminal ileim and pelvic abcess s/p drainage of abcess HTN Diverticulosis PLAN Continue antibiotics for CT abdomen and pelvis awaiting
--- NOTE | 2017-09-13 11:11 | PN ---
Progress Note, Physician - Current Medication List Current Medications: Active Medications Acetaminophen (Tylenol -) 325 mg PO Q6H PRN PRN Reason: PAIN SCALE 6 -10 Amlodipine Besylate (Norvasc -) 5 mg PO HS [facility] Last Admin: 09/12/17 21:20 Dose: 5 mg Levofloxacin (Levaquin 500 Mg Premixed Ivpb -) 500 mg in 100 mls @ 100 mls/hr IVPB DAILY [facility] PRN Reason: Protocol Last Admin: 09/12/17 11:15 Dose: 100 mls/hr Metronidazole (Flagyl 500mg Premixed Ivpb -) 500 mg in 100 mls @ 100 mls/hr IVPB Q8H-IV [facility] Last Admin: 09/13/17 10:30 Dose: 100 mls/hr Linezolid (Zyvox 600 Mg Premix Bag (Restricted To Id) -) 600 mg in 300 mls @ 300 mls/hr IVPB BID@0800,2000 [facility] PRN Reason: Protocol Last Admin: 09/13/17 07:49 Dose: 300 mls/hr Losartan Potassium (Cozaar -) 100 mg PO DAILY [facility] Last Admin: 09/13/17 09:52 Dose: 100 mg Ondansetron HCl (Zofran Injection) 4 mg IVPUSH Q8H PRN PRN Reason: NAUSEA AND/OR VOMITING Last Admin: 09/03/17 10:14 Dose: 4 mg Triamterene/HCTZ (Dyazide 25/37.5mg) 1 cap PO DAILY [facility] Last Admin: 09/13/17 09:54 Dose: 1 cap Witch Pam/Glycerin (Tucks Pads -) 1 pad TP TID PRN PRN Reason: Perianal discomfort Last Admin: 09/02/17 10:17 Dose: 1 pad - Objective Vital Signs: Vital Signs Temperature 98.1 F 09/13/17 07:00 Pulse Rate 65 09/13/17 07:00 Respiratory Rate 20 09/13/17 07:00 Blood Pressure 131/50 09/13/17 07:00 O2 Sat by Pulse Oximetry (%) 100 09/12/17 21:00 Labs: CBC, BMP 09/12/17 07:35 09/12/17 07:35 INR, PTT INR 1.22 (0.82-1.09) H 08/29/17 09:35 Problem List - Problems (1) Right lower quadrant abdominal pain Code(s): R10.31 - RIGHT LOWER QUADRANT PAIN (2) Terminal ileitis with abscess Code(s): K50.014 - CROHN'S DISEASE OF SMALL INTESTINE WITH ABSCESS Assessment/Plan Surgery: Patient is comfortable. She has no abdominal pain. She has minimal , clear drainage from the drain. Will do follow up contrast enhanced study of the pelvis, to evaluate the abscess.
[2017-09-13] MEDS: amLODIPine BESYLATE 5 MG TABLET (FP) PO SCH (21:12)
--- NOTE | 2017-09-14 09:58 | PN ---
Progress Note, Physician Chief Complaint: Pt lyimg in bed ,afebrile Rpt ct scan report noted pouch of sandor abcess resolved ,no collection Abcess in the posterior pelvis size coming down pt tolerated diet ,pt feels better, pt is on IV antibiotics Will f/u ID and surgery rec regarding further managenent of remaing abcess - Current Medication List Current Medications: Active Medications Acetaminophen (Tylenol -) 325 mg PO Q6H PRN PRN Reason: PAIN SCALE 6 -10 Amlodipine Besylate (Norvasc -) 5 mg PO HS [facility] Last Admin: 09/13/17 21:12 Dose: 5 mg Levofloxacin (Levaquin 500 Mg Premixed Ivpb -) 500 mg in 100 mls @ 100 mls/hr IVPB DAILY [facility] PRN Reason: Protocol Last Admin: 09/13/17 11:36 Dose: 100 mls/hr Metronidazole (Flagyl 500mg Premixed Ivpb -) 500 mg in 100 mls @ 100 mls/hr IVPB Q8H-IV [facility] Last Admin: 09/14/17 01:28 Dose: 100 mls/hr Linezolid (Zyvox 600 Mg Premix Bag (Restricted To Id) -) 600 mg in 300 mls @ 300 mls/hr IVPB BID@0800,2000 [facility] PRN Reason: Protocol Last Admin: 09/13/17 20:45 Dose: 300 mls/hr Losartan Potassium (Cozaar -) 100 mg PO DAILY [facility] Last Admin: 09/13/17 09:52 Dose: 100 mg Ondansetron HCl (Zofran Injection) 4 mg IVPUSH Q8H PRN PRN Reason: NAUSEA AND/OR VOMITING Last Admin: 09/03/17 10:14 Dose: 4 mg Triamterene/HCTZ (Dyazide 25/37.5mg) 1 cap PO DAILY [facility] Last Admin: 09/13/17 09:54 Dose: 1 cap Witch Pam/Glycerin (Tucks Pads -) 1 pad TP TID PRN PRN Reason: Perianal discomfort Last Admin: 09/02/17 10:17 Dose: 1 pad - Objective Vital Signs: Vital Signs Temperature 98.3 F 09/14/17 06:00 Pulse Rate 63 09/14/17 06:00 Respiratory Rate 20 09/14/17 06:00 Blood Pressure 126/58 09/14/17 06:00 O2 Sat by Pulse Oximetry (%) 100 09/13/17 21:00 Constitutional: Yes: No Distress Eyes: Yes: Conjunctiva Clear HENT: Yes: Atraumatic Neck: Yes: Supple Cardiovascular: Yes: Regular Rate and Rhythm Respiratory: Yes: Regular, CTA Bilaterally Gastrointestinal: Yes: Normal Bowel Sounds, Soft, Other ( kaya draing less) Musculoskeletal: Yes: WNL Extremities: Yes: WNL Edema: Yes Edema: LLE: Trace, RLE: Trace Peripheral Pulses WNL: Yes Neurological: Yes: WNL ...Motor Strength: WNL Psychiatric: Yes: WNL Labs: CBC, BMP 09/12/17 07:35 09/12/17 07:35 INR, PTT INR 1.22 (0.82-1.09) H 08/29/17 09:35 Assessment/Plan Terminal ileitis with collection of fluid around terminal ileim and pelvic abcess s/p drainage of abcess, RPT ct shows no collection in the drained abcess Collection around terminal ileium improving in size HTN Diverticulosis PLAN Continue antibiotics will f/u surgery and ID rec
[2017-09-14] MEDS: LINEZOLID 600 MG PREMIX BAG 600 MG/300 ML BAG IVPB SCH ×2 (10:11→22:00)
--- NOTE | 2017-09-14 10:19 | PN ---
Progress Note, Physician - Current Medication List Current Medications: Active Medications Acetaminophen (Tylenol -) 325 mg PO Q6H PRN PRN Reason: PAIN SCALE 6 -10 Amlodipine Besylate (Norvasc -) 5 mg PO HS [facility] Last Admin: 09/13/17 21:12 Dose: 5 mg Levofloxacin (Levaquin 500 Mg Premixed Ivpb -) 500 mg in 100 mls @ 100 mls/hr IVPB DAILY [facility] PRN Reason: Protocol Last Admin: 09/13/17 11:36 Dose: 100 mls/hr Metronidazole (Flagyl 500mg Premixed Ivpb -) 500 mg in 100 mls @ 100 mls/hr IVPB Q8H-IV [facility] Last Admin: 09/14/17 01:28 Dose: 100 mls/hr Linezolid (Zyvox 600 Mg Premix Bag (Restricted To Id) -) 600 mg in 300 mls @ 300 mls/hr IVPB BID@0800,2000 [facility] PRN Reason: Protocol Last Admin: 09/13/17 20:45 Dose: 300 mls/hr Losartan Potassium (Cozaar -) 100 mg PO DAILY [facility] Last Admin: 09/13/17 09:52 Dose: 100 mg Ondansetron HCl (Zofran Injection) 4 mg IVPUSH Q8H PRN PRN Reason: NAUSEA AND/OR VOMITING Last Admin: 09/03/17 10:14 Dose: 4 mg Triamterene/HCTZ (Dyazide 25/37.5mg) 1 cap PO DAILY [facility] Last Admin: 09/13/17 09:54 Dose: 1 cap Witch Pam/Glycerin (Tucks Pads -) 1 pad TP TID PRN PRN Reason: Perianal discomfort Last Admin: 09/02/17 10:17 Dose: 1 pad - Objective Vital Signs: Vital Signs Temperature 98.3 F 09/14/17 06:00 Pulse Rate 63 09/14/17 06:00 Respiratory Rate 20 09/14/17 06:00 Blood Pressure 126/58 09/14/17 06:00 O2 Sat by Pulse Oximetry (%) 100 09/13/17 21:00 Labs: CBC, BMP 09/12/17 07:35 09/12/17 07:35 INR, PTT INR 1.22 (0.82-1.09) H 08/29/17 09:35 Problem List - Problems (1) Right lower quadrant abdominal pain Code(s): R10.31 - RIGHT LOWER QUADRANT PAIN (2) Terminal ileitis with abscess Code(s): K50.014 - CROHN'S DISEASE OF SMALL INTESTINE WITH ABSCESS Assessment/Plan Surgery: Ct scan of pelvis was reviewed with radiologist. The pelvic abscess has resolved. The interloop abscess , between the terminal ilium , is smaller. Continue antibiotics. Interloop abscess can be treated medically. Patient has no abdominal pain, afebrile. Will ask radiologist to remove drainage catheter. can be discharged with antibiotics.
[2017-09-14] MEDS ORDERED: PT OWN MED DRAWER 7, Y5N ONE (11:42)
[2017-09-14] MEDS: LOSARTAN POTASSIUM 50 MG TABLET (FP) PO SCH (11:47)
[2017-09-14] MEDS: TRIAMTERENE AND HCTZ - 37.5 MG/25 MG CAPSULE PO SCH (11:48)
--- NOTE | 2017-09-14 11:59 | PN ---
Progress Note, Physician History of Present Illness: Awake, alert Seated in bed No complaints of abdominal pain No N/V + soft BMs Tolerating regular diet No F/C WBC WNL - Current Medication List Current Medications: Active Medications Acetaminophen (Tylenol -) 325 mg PO Q6H PRN PRN Reason: PAIN SCALE 6 -10 Amlodipine Besylate (Norvasc -) 5 mg PO HS [facility] Last Admin: 09/13/17 21:12 Dose: 5 mg Levofloxacin (Levaquin 500 Mg Premixed Ivpb -) 500 mg in 100 mls @ 100 mls/hr IVPB DAILY [facility] PRN Reason: Protocol Last Admin: 09/14/17 10:12 Dose: 100 mls/hr Metronidazole (Flagyl 500mg Premixed Ivpb -) 500 mg in 100 mls @ 100 mls/hr IVPB Q8H-IV [facility] Last Admin: 09/14/17 10:12 Dose: 100 mls/hr Linezolid (Zyvox 600 Mg Premix Bag (Restricted To Id) -) 600 mg in 300 mls @ 300 mls/hr IVPB BID@0800,2000 [facility] PRN Reason: Protocol Last Admin: 09/14/17 10:11 Dose: 300 mls/hr Losartan Potassium (Cozaar -) 100 mg PO DAILY [facility] Last Admin: 09/14/17 11:47 Dose: 100 mg Ondansetron HCl (Zofran Injection) 4 mg IVPUSH Q8H PRN PRN Reason: NAUSEA AND/OR VOMITING Last Admin: 09/03/17 10:14 Dose: 4 mg Triamterene/HCTZ (Dyazide 25/37.5mg) 1 cap PO DAILY [facility] Last Admin: 09/14/17 11:48 Dose: 1 cap Witch Pam/Glycerin (Tucks Pads -) 1 pad TP TID PRN PRN Reason: Perianal discomfort Last Admin: 09/02/17 10:17 Dose: 1 pad - Objective Vital Signs: Vital Signs Temperature 98.3 F 09/14/17 06:00 Pulse Rate 63 09/14/17 06:00 Respiratory Rate 20 09/14/17 06:00 Blood Pressure 126/58 09/14/17 06:00 O2 Sat by Pulse Oximetry (%) 100 09/13/17 21:00 Constitutional: Yes: No Distress, Obese Eyes: Yes: Conjunctiva Clear Cardiovascular: Yes: Regular Rate and Rhythm, S1, S2 Respiratory: Yes: CTA Bilaterally Gastrointestinal: Yes: Normal Bowel Sounds, Soft, Other (clear fluid in JARRETT drain ). No: Tenderness Edema: Yes Labs: CBC, BMP 09/12/17 07:35 09/12/17 07:35 INR, PTT INR 1.22 (0.82-1.09) H 08/29/17 09:35 Assessment/Plan Intraabdominal abscess S/P perforated viscus Follow up CT shows resolution of one collection, improvement in second PCN allergy Leukocytosis- resolved May substitute po antibiotics for additional 7d: Levaquin 500mg po qd Flagyl 500mg po q8h Linezolid 600mg po q12h
--- NOTE | 2017-09-14 12:32 | PN ---
GI Progress Note Subjective: GI. CT reveals resolution of the drained abscess and decrease in size of the other. Dr Florez's note appreciated. Anticipate oral antibiotic switch. Reieterated need to followup in the office for colonoscopy in 6-8 weeks to exclude Crohn's Disease and carcinoid although 5" HIAA is normal. - Objective Vital Signs: Vital Signs Temperature 98.3 F 09/14/17 06:00 Pulse Rate 63 09/14/17 06:00 Respiratory Rate 20 09/14/17 06:00 Blood Pressure 126/58 09/14/17 06:00 O2 Sat by Pulse Oximetry (%) 100 09/13/17 21:00 Laboratory Tests 08/31/17 08/31/17 08/31/17 06:00 06:00 12:00 Pancreatic Polypeptide 346.3 Ur Random 5-HIAA 1.3 Urine 5-HIAA 24 Hour 2.3 c-ANCA <1:20 Proteinase 3 (PR3) <3.5 p-ANCA <1:20 Atypical p-ANCA <1:20 Myeloperoxidase Ab <9.0 S.cerevisiae IgG Ab 25.5 H S. cerevisiae IgG/IgA <20.0 ...Auscultate: Yes: Normoactive Bowel Sounds ...Palpate: Yes: Soft, Other (nontedner) Labs: CBC, BMP 09/12/17 07:35 09/12/17 07:35 INR, PTT INR 1.22 (0.82-1.09) H 08/29/17 09:35 Problem List - Problems (1) Terminal ileitis with abscess Assessment/Plan: Resolving abscesses. Anticipate switch to oral antibiotics. . Code(s): K50.014 - CROHN'S DISEASE OF SMALL INTESTINE WITH ABSCESS
[2017-09-14] MEDS: amLODIPine BESYLATE 5 MG TABLET (FP) PO SCH (22:00)
[2017-09-15 08:08] LABS: BASO % 1.1 % (0-2.0); EOS % 3.4 % (0-4.5); HEMATOCRIT 31.3 % (32.4-45.2); HEMOGLOBIN 10.7 GM/dL (10.7-15.3); LYMPH % 34.1 % (8-40); MCH 29.4 pg (25.7-33.7); MEAN CELL VOLUME 86.5 fl (80-96); MEAN PLT VOLUME 8.7 fl (7.5-11.1); MONO % 9.8 % (3.8-10.2); NEUT % 51.6 % (42.8-82.8); PLATELET COUNT 299 K/MM3 (134-434); RBC 3.63 M/mm3 (3.60-5.2); RDW 14.8 % (11.6-15.6); WHITE BLOOD COUNT 3.8 K/mm3 (4.0-10.0)
[2017-09-15 08:33] LABS: ALBUMIN 3.1 g/dl (3.4-5.0); ANION GAP 7 (8-16); BLOOD UREA NITROGEN 10 mg/dL (7-18); CALCIUM 8.3 mg/dL (8.5-10.1); CHLORIDE 104 mmol/L (98-107); CO2 29 mmol/L (21-32); CREATININE 0.7 mg/dL (0.55-1.02); GLUCOSE,RANDOM 113 mg/dL (74-106); POTASSIUM 4.3 mmol/L (3.5-5.1); SGOT/AST 7 U/L (15-37); SGPT/ALT 8 U/L (12-78); SODIUM 140 mmol/L (136-145)
[2017-09-15 08:34] LABS: ALK PHOS 70 U/L (45-117); BILIRUBIN,TOTAL 0.6 mg/dL (0.2-1.0); TOT PROT 6.4 g/dl (6.4-8.2)
--- NOTE | 2017-09-15 09:13 | PN ---
Progress Note, Physician - Current Medication List Current Medications: Active Medications Acetaminophen (Tylenol -) 325 mg PO Q6H PRN PRN Reason: PAIN SCALE 6 -10 Amlodipine Besylate (Norvasc -) 5 mg PO HS [facility] Last Admin: 09/14/17 22:00 Dose: 5 mg Levofloxacin (Levaquin 500 Mg Premixed Ivpb -) 500 mg in 100 mls @ 100 mls/hr IVPB DAILY [facility] PRN Reason: Protocol Last Admin: 09/14/17 10:12 Dose: 100 mls/hr Metronidazole (Flagyl 500mg Premixed Ivpb -) 500 mg in 100 mls @ 100 mls/hr IVPB Q8H-IV [facility] Last Admin: 09/15/17 02:03 Dose: 100 mls/hr Linezolid (Zyvox 600 Mg Premix Bag (Restricted To Id) -) 600 mg in 300 mls @ 300 mls/hr IVPB BID@0800,2000 [facility] PRN Reason: Protocol Last Admin: 09/14/17 22:00 Dose: 300 mls/hr Losartan Potassium (Cozaar -) 100 mg PO DAILY [facility] Last Admin: 09/14/17 11:47 Dose: 100 mg Ondansetron HCl (Zofran Injection) 4 mg IVPUSH Q8H PRN PRN Reason: NAUSEA AND/OR VOMITING Last Admin: 09/03/17 10:14 Dose: 4 mg Triamterene/HCTZ (Dyazide 25/37.5mg) 1 cap PO DAILY [facility] Last Admin: 09/14/17 11:48 Dose: 1 cap Witch Pam/Glycerin (Tucks Pads -) 1 pad TP TID PRN PRN Reason: Perianal discomfort Last Admin: 09/02/17 10:17 Dose: 1 pad - Objective Vital Signs: Vital Signs Temperature 98.1 F 09/15/17 06:46 Pulse Rate 61 09/15/17 06:46 Respiratory Rate 20 09/15/17 06:46 Blood Pressure 115/57 09/15/17 06:46 O2 Sat by Pulse Oximetry (%) 100 09/14/17 21:00 Labs: CBC, BMP 09/15/17 06:30 09/15/17 06:30 INR, PTT INR 1.22 (0.82-1.09) H 08/29/17 09:35 Problem List - Problems (1) Right lower quadrant abdominal pain Code(s): R10.31 - RIGHT LOWER QUADRANT PAIN (2) Terminal ileitis with abscess Code(s): K50.014 - CROHN'S DISEASE OF SMALL INTESTINE WITH ABSCESS Assessment/Plan Patient is afebrile, and asymptomatic. Pelvic drain is removed. Placed on oral antibiotics. tolerating diet. No surgical drainage needed at this time. Crohn's ileitis with perforation and intrabdominal abscess.
--- NOTE | 2017-09-15 09:32 | PN ---
Progress Note, Physician Chief Complaint: Pt lyimg in bed ,afebrile Drainage catheter removed Rpt ct scan report noted pouch of sandor abcess resolved ,no collection Abcess in the posterior pelvis size coming down pt tolerated diet ,pt feels better, pt is on IV antibiotics as per ID ,GI and surgery Pt can go home on ORAL antibioticsfor 7 days,follow with GI for colonoscopy after 4 weeks and f/u with surgeon after [address] scan - Current Medication List Current Medications: Active Medications Acetaminophen (Tylenol -) 325 mg PO Q6H PRN PRN Reason: PAIN SCALE 6 -10 Amlodipine Besylate (Norvasc -) 5 mg PO HS [facility] Last Admin: 09/14/17 22:00 Dose: 5 mg Levofloxacin (Levaquin 500 Mg Premixed Ivpb -) 500 mg in 100 mls @ 100 mls/hr IVPB DAILY [facility] PRN Reason: Protocol Last Admin: 09/14/17 10:12 Dose: 100 mls/hr Metronidazole (Flagyl 500mg Premixed Ivpb -) 500 mg in 100 mls @ 100 mls/hr IVPB Q8H-IV [facility] Last Admin: 09/15/17 02:03 Dose: 100 mls/hr Linezolid (Zyvox 600 Mg Premix Bag (Restricted To Id) -) 600 mg in 300 mls @ 300 mls/hr IVPB BID@0800,2000 [facility] PRN Reason: Protocol Last Admin: 09/14/17 22:00 Dose: 300 mls/hr Losartan Potassium (Cozaar -) 100 mg PO DAILY [facility] Last Admin: 09/14/17 11:47 Dose: 100 mg Ondansetron HCl (Zofran Injection) 4 mg IVPUSH Q8H PRN PRN Reason: NAUSEA AND/OR VOMITING Last Admin: 09/03/17 10:14 Dose: 4 mg Triamterene/HCTZ (Dyazide 25/37.5mg) 1 cap PO DAILY [facility] Last Admin: 09/14/17 11:48 Dose: 1 cap Witch Pam/Glycerin (Tucks Pads -) 1 pad TP TID PRN PRN Reason: Perianal discomfort Last Admin: 09/02/17 10:17 Dose: 1 pad - Objective Vital Signs: Vital Signs Temperature 98.1 F 09/15/17 06:46 Pulse Rate 61 09/15/17 06:46 Respiratory Rate 20 09/15/17 06:46 Blood Pressure 115/57 09/15/17 06:46 O2 Sat by Pulse Oximetry (%) 100 09/14/17 21:00 Constitutional: Yes: No Distress Eyes: Yes: Conjunctiva Clear HENT: Yes: Atraumatic Neck: Yes: Supple Cardiovascular: Yes: Regular Rate and Rhythm Respiratory: Yes: Regular, CTA Bilaterally Gastrointestinal: Yes: Normal Bowel Sounds, Soft, Other (Catheter removed site dressing in place) Musculoskeletal: Yes: WNL Extremities: Yes: WNL Edema: Yes Edema: LLE: Trace, RLE: Trace Peripheral Pulses WNL: Yes Neurological: Yes: WNL, Alert ...Motor Strength: WNL Psychiatric: Yes: WNL Labs: CBC, BMP 09/15/17 06:30 09/15/17 06:30 INR, PTT INR 1.22 (0.82-1.09) H 08/29/17 09:35 Assessment/Plan Terminal ileitis with collection of fluid around terminal ileim and pelvic abcess s/p drainage of abcess,s/p removal of drainage catheter RPT ct shows no collection in the drained abcess Collection around terminal ileium improving in size HTN Diverticulosis PLAN D/c home Continue flagyl,levoquin,and linezolid for 7 days more F/u with GI,surgeon britta PMD For OUT patient Colonoscopy after [address] pelvis after 3 weeks
[2017-09-15] MEDS: LINEZOLID 600 MG PREMIX BAG 600 MG/300 ML BAG IVPB SCH (10:32)
[2017-09-15] MEDS: LOSARTAN POTASSIUM 50 MG TABLET (FP) PO SCH (10:32)
[2017-09-15] MEDS ORDERED: PT OWN MED DRAWER 7, Y5N ONE (10:33)
[2017-09-15] MEDS: TRIAMTERENE AND HCTZ - 37.5 MG/25 MG CAPSULE PO SCH (10:34)
[2017-09-15 17:07] VITALS: BP 121/65; PULSE 59; TEMP 97.9
== END 2017-09-15 20:10 | disposition home or self-care (01) | DRG 245 ==
LOC: JER 08:24 → JERBED 15:03 → J5S 16:05 → J8W 16:32
PROVIDERS: ADMIT Family Medicine; ATTEND Family Medicine
PROC: 0W9J30Z Drainage of Pelvic Cavity with Drainage Device, Percutaneous Approach (ICD-10-PCS; principal; 2017-09-03)
PROC: 0J9C30Z Drainage of Pelvic Region Subcutaneous Tissue and Fascia with Drainage Device, Percutaneous Approach (ICD-10-PCS; 2017-09-14)
PROC: 0WPJX0Z Removal of Drainage Device from Pelvic Cavity, External Approach (ICD-10-PCS; 2017-09-14)
DX: K50.014 Crohn's disease of small intestine with abscess (principal); R10.31 Right lower quadrant pain; D72.829 Elevated white blood cell count, unspecified; Z88.0 Allergy status to penicillin; E66.9 Obesity, unspecified; Z68.39 Body mass index [BMI] 39.0-39.9, adult; K58.9 Irritable bowel syndrome, unspecified; Z87.891 Personal history of nicotine dependence; K57.91 Diverticulosis of intestine, part unspecified, without perforation or abscess with bleeding; I10 Essential (primary) hypertension; B96.5 Pseudomonas (aeruginosa) (mallei) (pseudomallei) as the cause of diseases classified elsewhere; E11.9 Type 2 diabetes mellitus without complications; K63.1 Perforation of intestine (nontraumatic); N28.9 Disorder of kidney and ureter, unspecified; E87.6 Hypokalemia
CPT/HCPCS: 36415; 49407; 49424; 71046-TC-FY; 72193-TC; 74019-TC-FY; 74021-TC-FY; 74176-TC; 74178-TC; 76080-TC-FY; 76098-TC-FY; 77012-TC; 78290-TC; 80048; 80053; 81003; 83497; 83519; 83520; 83615; 83690; 85025; 85027; 85610; 85730; 86140; 86256; 86671; 86850; 86900; 86901; 87040; 87070; 87075; 87077; 87186; 87205; 87899; 93005; 93010; 93970-TC; 99283-25; A9512; C1729; C1769; J7030

== ENCOUNTER 2017-12-07 07:34 | Day surgery (SDC) | payer OTHER ==
[2017-12-06 14:34] VITALS: BMI 38.9
[2017-12-07] MEDS ORDERED: LIDOCAINE HCL/PF 2% SDV 5ML VIAL ONE (08:37)
[2017-12-07] MEDS ORDERED: LIDOCAINE HCL/PF 1% SDV 5ML VIAL ONE (08:37)
[2017-12-07 09:37] VITALS: TEMP 97.7
[2017-12-07 10:34] VITALS: BP 122/65; PULSE 75
--- NOTE | 2017-12-08 16:40 | PATH ---
Surgical Pathology Report Patient Name: IRMA GAN [facility]. Rec. #: [id number] /Age/Gender: 1955 (Age: 62) / F Account: [id number] Location: [facility]-ENDOSCOPY Taken: 12/07/2017 Received: 12/07/2017 Reported: 12/08/2017 Physicians: Ayush Todd M.D. Specimen(s) Received A: POLYP SIGMOID B: BX HEPATIC FLEXURE POLYPS C: BX TERMINAL ILEUM Clinical History Polyp surveillance, rule out Crohn's Postoperative diagnosis: Diverticulosis, polyps Final Diagnosis A. SIGMOID POLYP, POLYPECTOMY: TUBULAR ADENOMA. B. HEPATIC FLEXURE POLYPS, POLYPECTOMY: TUBULAR ADENOMA, ONE. HYPERPLASTIC POLYP, ONE. C. TERMINAL ILEUM, BIOPSY: TERMINAL ILEUM MUCOSA WITH NO DIAGNOSTIC ABNORMALITIES. NO HISTOLOGIC EVIDENCE OF CROHN'S DISEASE. Electronically Signed Danielle Diaz M.D. Gross Description A. Received in formalin, labeled "sigmoid polyp" is a mendez, irregular portion of soft tissue measuring 0.5 cm. in greatest dimension. The base of the specimen is inked in blue and bisected. The specimen is entirely submitted in toto in one cassette. B. Received in formalin, labeled "hepatic flexure polyps" are 2 mendez, irregular portions of soft tissue measuring 0.3 and 0.7 cm. in greatest dimension. The base of the largest polyp is inked in blue and bisected. The specimens are submitted in toto in two cassettes. C. Received in formalin, labeled "terminal ileum" is a mendez, irregular portion of soft tissue measuring 0.3 cm. in greatest dimension. The specimen is submitted in toto in one cassette. MLÁNGEL/12/07/2017 omayra/12/07/2017
== END 2017-12-07 10:25 | disposition home or self-care (01) ==
LOC: JASU-ENDO 07:34
PROVIDERS: ATTEND Internal Medicine Gastroenterology
PROC: 0DBL8ZX Excision of Transverse Colon, Via Natural or Artificial Opening Endoscopic, Diagnostic (ICD-10-PCS; 2017-12-07)
PROC: 0DBB8ZX Excision of Ileum, Via Natural or Artificial Opening Endoscopic, Diagnostic (ICD-10-PCS; 2017-12-07)
PROC: 0DBN8ZX Excision of Sigmoid Colon, Via Natural or Artificial Opening Endoscopic, Diagnostic (ICD-10-PCS; principal; 2017-12-07 09:00)
DX: K57.30 Diverticulosis of large intestine without perforation or abscess without bleeding (principal); D12.5 Benign neoplasm of sigmoid colon; D12.3 Benign neoplasm of transverse colon; K64.8 Other hemorrhoids
CPT/HCPCS: 88305-TC

== ENCOUNTER 2020-10-07 04:22 | Day surgery (SDC) | payer OTHER ==
[2020-10-06 13:13] VITALS: BMI 39.9
[2020-10-07 10:29] VITALS: TEMP 97.6
[2020-10-07 11:35] VITALS: BP 113/57; PULSE 56
== END 2020-10-07 11:40 | disposition home or self-care (01) ==
LOC: JASU-ENDO 04:22
PROVIDERS: ATTEND Internal Medicine Gastroenterology
PROC: 0DBN8ZX Excision of Sigmoid Colon, Via Natural or Artificial Opening Endoscopic, Diagnostic (ICD-10-PCS; 2020-10-07)
PROC: 0DBC8ZX Excision of Ileocecal Valve, Via Natural or Artificial Opening Endoscopic, Diagnostic (ICD-10-PCS; principal; 2020-10-07 09:58)
DX: Z12.11 Encounter for screening for malignant neoplasm of colon (principal); Z86.010 Personal history of colon polyps; D12.5 Benign neoplasm of sigmoid colon; K57.30 Diverticulosis of large intestine without perforation or abscess without bleeding; K64.8 Other hemorrhoids
CPT/HCPCS: 82962; 88305-TC

== ENCOUNTER 2024-01-26 06:32 | Day surgery (SDC) | payer OTHER ==
[2024-01-02 15:48] VITALS: BMI 39.2
[2024-01-26 10:35] VITALS: TEMP 98
[2024-01-26 11:14] VITALS: RESP 16
[2024-01-26 11:15] VITALS: BP 136/57; PULSE 56
== END 2024-01-26 11:55 | disposition home or self-care (01) ==
LOC: JASU-ENDO 06:32
PROVIDERS: ATTEND Internal Medicine Gastroenterology
PROC: 0DBL8ZX Excision of Transverse Colon, Via Natural or Artificial Opening Endoscopic, Diagnostic (ICD-10-PCS; 2024-01-26)
PROC: 0DBM8ZX Excision of Descending Colon, Via Natural or Artificial Opening Endoscopic, Diagnostic (ICD-10-PCS; 2024-01-26)
PROC: 0DBK8ZX Excision of Ascending Colon, Via Natural or Artificial Opening Endoscopic, Diagnostic (ICD-10-PCS; principal; 2024-01-26 09:45)
DX: Z12.11 Encounter for screening for malignant neoplasm of colon (principal); D12.2 Benign neoplasm of ascending colon; D12.3 Benign neoplasm of transverse colon; D12.4 Benign neoplasm of descending colon; K64.8 Other hemorrhoids; K57.30 Diverticulosis of large intestine without perforation or abscess without bleeding; Z86.010 Personal history of colon polyps
CPT/HCPCS: 82962; 88305-TC

== ENCOUNTER 2024-07-12 18:27 | Observation (INO) | payer OTHER ==
[2024-07-12 18:34] VITALS: BMI 41.1
[2024-07-12] MEDS ORDERED: ACETAMINOPHEN INJECTION 100 ML ONE (21:03)
[2024-07-12] MEDS ORDERED: LIDOCAINE 4% PATCH TP ONE (21:03)
[2024-07-12] MEDS ORDERED: FAMOTIDINE 20 MG/50 ML IVPB 20 MG/50 ML MG IVPB ONE (21:04)
[2024-07-12] MEDS: ACETAMINOPHEN 1000 MG/100 ML BAG IVPB ONE (21:20)
[2024-07-12 21:21] LABS: BASO % 0.7 % (0-2.0); EOS % 3.3 % (0-4.5); HEMATOCRIT 38.2 % (32.4-45.2); HEMOGLOBIN 12.9 GM/dL (10.7-15.3); LYMPH % 32.9 % (8-40); MCH 29.4 pg (25.7-33.7); MCHC 33.8 g/dl (32.0-36.0); MEAN PLT VOLUME 8.3 fl (7.5-11.1); MONO % 8.9 % (3.8-10.2); NEUT % 54.2 % (42.8-82.8); PLATELET COUNT 266 10^3/uL (134-434); RBC 4.39 M/mm3 (3.60-5.2); RDW 13.5 % (11.6-15.6)
[2024-07-12] MEDS: FAMOTIDINE 20 MG/50 ML IVPB 20 MG/50 ML MG IVPB ONE (21:21)
[2024-07-12] MEDS: LIDOCAINE 5% TOPICAL PATCH TP ONE (21:21)
[2024-07-12 21:43] LABS: POTASSIUM 4.4 mmol/L (3.5-5.1)
[2024-07-12 21:45] LABS: CALCIUM 9.6 mg/dL (8.5-10.1)
[2024-07-12 21:46] LABS: ALBUMIN 3.8 g/dl (3.4-5.0); BLOOD UREA NITROGEN 14.8 mg/dL (7-18)
[2024-07-12 21:49] LABS: CREATININE 0.8 mg/dL (0.55-1.3)
[2024-07-12 21:50] LABS: BILIRUBIN,TOTAL 0.6 mg/dL (0.2-1); TOT PROT 7.3 g/dl (6.4-8.2)
[2024-07-13] MEDS ORDERED: LOSARTAN POTASSIUM 50 MG TABLET ONE (07:24)
[2024-07-13] MEDS: LOSARTAN POTASSIUM 50 MG TABLET PO SCH (07:45)
[2024-07-13] MEDS: INSULIN ASPART SLIDING SCALE (NOVOLOG) 1 VIAL SQ SCH (07:56)
[2024-07-13] MEDS: LIDOCAINE PATCH REMOVAL MC SCH (08:04)
[2024-07-13 08:24] LABS: BASO % 0.8 % (0-2.0); EOS % 3.5 % (0-4.5); HEMOGLOBIN 11.5 GM/dL (10.7-15.3); LYMPH % 32.4 % (8-40); MCH 28.7 pg (25.7-33.7); MEAN CELL VOLUME 87.1 fl (80-96); MEAN PLT VOLUME 9.8 fl (7.5-11.1); MONO % 7.2 % (3.8-10.2); NEUT % 56.1 % (42.8-82.8); PLATELET COUNT 224 10^3/uL (134-434); RBC 4.02 M/mm3 (3.60-5.2); RDW 13.5 % (11.6-15.6); WHITE BLOOD COUNT 6.4 K/mm3 (4.0-10.0)
[2024-07-13 08:45] LABS: CALCIUM 9.1 mg/dL (8.5-10.1)
[2024-07-13 08:46] LABS: BLOOD UREA NITROGEN 11.9 mg/dL (7-18)
[2024-07-13 08:47] LABS: ALBUMIN 3.4 g/dl (3.4-5.0); CHOLESTEROL 168 mg/dL (50-200)
[2024-07-13 08:48] LABS: LDL CHOLESTEROL (ONLY SJRH) 96 mg/dL (5-100)
[2024-07-13 08:50] LABS: CREATININE 0.8 mg/dL (0.55-1.3); HDL CHOLESTEROL 66 mg/dL (40-60); PHOSPHOROUS 3.5 mg/dL (2.5-4.9); TOT PROT 6.8 g/dl (6.4-8.2)
[2024-07-13] MEDS ORDERED: MAGNESIUM OXIDE 400 MG TABLET (FP) ONE (08:52)
[2024-07-13] MEDS ORDERED: ENOXAPARIN NA (PORCINE) 40 MG/0.4 ML DISP.SYRIN SQ ONE (08:53)
[2024-07-13] MEDS: ENOXAPARIN NA (PORCINE) 40 MG/0.4 ML DISP.SYRIN SQ SCH (09:00)
[2024-07-13] MEDS: CHOLECALCIFEROL (VIT D3) 1,000 UNIT (25 MCG) TABLET PO SCH (09:00)
[2024-07-13] MEDS: ASPIRIN COATED 81 MG TABLET.EC PO SCH (09:00)
[2024-07-13] MEDS: MAGNESIUM OXIDE 400 MG TABLET (FP) PO SCH (09:00)
[2024-07-13] MEDS: TRIAMTERENE AND HCTZ - 37.5 MG/25 MG CAPSULE PO SCH (09:00)
[2024-07-13] MEDS: ACETAMINOPHEN 1000 MG/100 ML BAG IVPB PRN (12:19)
[2024-07-13 14:30] LABS: URINE APPEARANCE CLEAR; URINE BILIRUBIN NEGATIVE (NEGATIVE); URINE COLOR YELLOW; URINE GLUCOSE (UA) NEGATIVE (NEGATIVE); URINE KETONE NEGATIVE (NEGATIVE); URINE LEUK ESTERASE NEGATIVE (NEGATIVE); URINE NITRITE NEGATIVE (NEGATIVE); URINE PROTEIN NEGATIVE (NEGATIVE)
[2024-07-13] MEDS: amLODIPine BESYLATE 5 MG TABLET (FP) PO SCH (22:43)
[2024-07-13] MEDS: ATORVASTATIN CA 10 MG TABLET (FP) PO SCH (22:43)
[2024-07-14 09:02] LABS: HEMATOCRIT 35.9 % (32.4-45.2); HEMOGLOBIN 11.8 GM/dL (10.7-15.3); MCH 28.9 pg (25.7-33.7); MCHC 32.8 g/dl (32.0-36.0); MEAN CELL VOLUME 88.3 fl (80-96); MEAN PLT VOLUME 8.8 fl (7.5-11.1); PLATELET COUNT 264 10^3/uL (134-434); RBC 4.06 M/mm3 (3.60-5.2); RDW 13.2 % (11.6-15.6); WHITE BLOOD COUNT 5.1 K/mm3 (4.0-10.0)
[2024-07-14 09:37] LABS: POTASSIUM 3.9 mmol/L (3.5-5.1)
[2024-07-14 10:08] LABS: ALBUMIN 3.5 g/dl (3.4-5.0); BLOOD UREA NITROGEN 13.2 mg/dL (7-18)
[2024-07-14 10:09] LABS: CALCIUM 9.3 mg/dL (8.5-10.1)
[2024-07-14 10:11] LABS: CREATININE 0.7 mg/dL (0.55-1.3); PHOSPHOROUS 3.3 mg/dL (2.5-4.9)
[2024-07-14 10:12] LABS: BILIRUBIN,TOTAL 0.9 mg/dL (0.2-1); TOT PROT 6.9 g/dl (6.4-8.2)
[2024-07-14] MEDS ORDERED: IPRATROPIUM BR 0.02% 0.5 MG/2.5 ML VIAL.NEB. NEB ONE (22:00)
[2024-07-16 08:40] LABS: HEMATOCRIT 35.7 % (32.4-45.2); HEMOGLOBIN 12.2 GM/dL (10.7-15.3); MCH 29.6 pg (25.7-33.7); MCHC 34.1 g/dl (32.0-36.0); MEAN CELL VOLUME 86.7 fl (80-96); PLATELET COUNT 266 10^3/uL (134-434); RBC 4.11 M/mm3 (3.60-5.2); WHITE BLOOD COUNT 5.4 K/mm3 (4.0-10.0)
[2024-07-16 09:29] LABS: ALBUMIN 3.5 g/dl (3.4-5.0); BLOOD UREA NITROGEN 10.9 mg/dL (7-18)
[2024-07-16 09:31] LABS: CALCIUM 9.2 mg/dL (8.5-10.1)
[2024-07-16 09:33] LABS: CREATININE 0.8 mg/dL (0.55-1.3)
[2024-07-16 09:35] LABS: BILIRUBIN,TOTAL 0.9 mg/dL (0.2-1); TOT PROT 6.9 g/dl (6.4-8.2)
[2024-07-17 08:55] VITALS: RESP 18
[2024-07-17 14:14] VITALS: BP 136/64; PULSE 65; TEMP 98.4
== END 2024-07-17 14:16 | disposition home or self-care (01) ==
LOC: JER 18:27 → JERBED 22:34 → J4S 07-13 14:45
PROVIDERS: ADMIT Internal Medicine; ATTEND Nurse Practitioner Family
PROC: 3E033NZ Introduction of Analgesics, Hypnotics, Sedatives into Peripheral Vein, Percutaneous Approach (ICD-10-PCS; principal; 2024-07-12)
PROC: 3E033GC Introduction of Other Therapeutic Substance into Peripheral Vein, Percutaneous Approach (ICD-10-PCS; 2024-07-12)
DX: I25.119 Atherosclerotic heart disease of native coronary artery with unspecified angina pectoris (principal); K57.92 Diverticulitis of intestine, part unspecified, without perforation or abscess without bleeding; I50.30 Unspecified diastolic (congestive) heart failure; I10 Essential (primary) hypertension; E78.5 Hyperlipidemia, unspecified; E11.9 Type 2 diabetes mellitus without complications; M19.90 Unspecified osteoarthritis, unspecified site; Z90.79 Acquired absence of other genital organ(s); Z90.49 Acquired absence of other specified parts of digestive tract; Z88.0 Allergy status to penicillin; Z88.5 Allergy status to narcotic agent; Z87.891 Personal history of nicotine dependence
CPT/HCPCS: 36415; 71046-TC-FY; 78452-TC; 80053; 80061; 81003; 82962; 83735; 83880; 84100; 84443; 84484; 85025; 85027; 93005; 93010; 93017; 93306-TC; 96365; 96375; 96376; 99285-25; A9502; G0378; J0131

== ENCOUNTER 2024-10-14 16:24 | Emergency (ER) | payer OTHER ==
[2024-10-14 16:33] VITALS: BP 167/73; PULSE 86; RESP 18; TEMP 98.2; BMI 41.7
[2024-10-14 18:07] LABS: ABSOLUTE IMMATURE GRANULOCYTES 0.03 x10^3/uL (0.0-0.031); BASOPHILS # 0.04 x10^3/uL (0.01-0.08); EOSINOPHIL % 3.7 % (0.7-5.8); EOSINOPHILS # 0.26 x10^3/uL (0.04-0.36); HEMATOCRIT 37.1 % (34.1-44.9); HEMOGLOBIN 11.9 g/dL (11.2-15.7); MCHC 32.1 g/dl (32.2-35.5); MEAN CELL VOLUME 89.4 fl (79.4-94.8); MEAN PLT VOLUME 9.7 fl (9.4-12.3); MONOCYTE # 0.66 x10^3/uL (0.24-0.86); MONOCYTE % 9.3 % (4.7-12.5); PLATELET COUNT 322 x10^3/uL (182-369); RDW 12.1 % (12.4-16.4)
[2024-10-14 18:38] LABS: POTASSIUM 3.7 mmol/L (3.5-5.1)
[2024-10-14 18:39] LABS: CALCIUM 9.3 mg/dL (8.5-10.1)
[2024-10-14 18:40] LABS: ALBUMIN 3.5 g/dl (3.4-5.0)
[2024-10-14 18:43] LABS: CREATININE 0.7 mg/dL (0.55-1.3)
[2024-10-14 18:45] LABS: BILIRUBIN,TOTAL 0.4 mg/dL (0.2-1); TOT PROT 7.1 g/dl (6.4-8.2)
== END 2024-10-14 19:22 | disposition home or self-care (01) ==
LOC: JER 16:24
DX: R05.1 Acute cough (principal); R09.81 Nasal congestion
CPT/HCPCS: 0241U-QW; 36415; 71046-TC-FY; 80053; 84484; 85025; 93005; 93010; 99285-25